=== PATIENT | male | born 1935 | race Caucasian/White ===

== ENCOUNTER → 2017-12-08 | Outpatient (CLI) | payer OTHER | LOC: BHFA 13:30 | PROVIDERS: ATTEND Internal Medicine Cardiovascular Disease | DX: I48.91 Unspecified atrial fibrillation (principal); J44.9 Chronic obstructive pulmonary disease, unspecified | CPT/HCPCS: 78452; 93017; A9500; J2785 ==

== ENCOUNTER → 2017-12-09 | Outpatient (CLI) | payer OTHER | LOC: BHFA 14:00 | PROVIDERS: ATTEND Internal Medicine Interventional Cardiology | DX: I48.91 Unspecified atrial fibrillation (principal); I25.10 Atherosclerotic heart disease of native coronary artery without angina pectoris ==

== ENCOUNTER → 2018-03-15 | Day surgery (SDC) | payer OTHER ==
[~2018-03-15] MED LIST: ACETAMINOPHEN 325 MG TAB PO ONE; CLINDAMYCIN 600 MG/DEXTROSE 50 ML IV ONE; DEXAMETHASONE 4 MG/ML VIAL IVP ONE; FAMOTIDINE 20 MG TAB PO ONE; LIDOCAINE 1% 2 ML INJ ID PRN; LR 1,000 ML IV ONE; ceFAZolin 1 GM/5 ML SYR ONE
--- NOTE | 2018-03-15 10:21 | PDHPUP ---
History & Physical Update H&P update statement: This history and physical update is based on an assessment of the patient which was completed after admission or registration (within 24 hours), but prior to the surgery/procedure. H&P update: H&P reviewed & patient examined, no change in patient's condition since H&P completed
[2018-03-15 10:25] LABS: INR 1.72 (0.83-1.16); PROTIME(PATIENT) 20.3 SEC (12.0-15.0)
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
[2018-03-15 10:51] VITALS: BP 147/66
== END | disposition home or self-care (01) ==
LOC: UNDOADMIN 08:56 → F3N 08:56 → FSGY 08:56 → EDSTATUS 10:15 → UNDODISIN 13:45
PROVIDERS: ATTEND Orthopaedic Surgery Sports Medicine
DX: M17.11 Unilateral primary osteoarthritis, right knee (principal); Q74.1 Congenital malformation of knee; I10 Essential (primary) hypertension; I48.91 Unspecified atrial fibrillation; I35.1 Nonrheumatic aortic (valve) insufficiency; G47.33 Obstructive sleep apnea (adult) (pediatric); E11.9 Type 2 diabetes mellitus without complications; N40.1 Benign prostatic hyperplasia with lower urinary tract symptoms; Z79.01 Long term (current) use of anticoagulants; Z96.641 Presence of right artificial hip joint; Z95.810 Presence of automatic (implantable) cardiac defibrillator; Z53.09 Procedure and treatment not carried out because of other contraindication
CPT/HCPCS: J1100

== ENCOUNTER 2018-03-21 08:42 | Inpatient (IN) | payer OTHER ==
[~2018-03-21 08:42] MED LIST changes: -ACETAMINOPHEN 325 MG TAB PO ONE; -CLINDAMYCIN 600 MG/DEXTROSE 50 ML IV ONE; -DEXAMETHASONE 4 MG/ML VIAL IVP ONE; -FAMOTIDINE 20 MG TAB PO ONE; -LIDOCAINE 1% 2 ML INJ ID PRN; -LR 1,000 ML IV ONE; +VANCOMYCIN 1 GM in NS 250 ML IV ONE; +VANCOMYCIN PHARMACY TO DOSE MISC ONE; -ceFAZolin 1 GM/5 ML SYR ONE
[2018-03-21] MEDS ORDERED: LR 1,000 ML IV SCH ×2 (09:04)
[2018-03-21] MEDS ORDERED: BISACODYL 10 MG SUPP PR PRN (09:04)
[2018-03-21] MEDS ORDERED: ONDANSETRON DISINTEGRATING 4 MG TAB PO PRN (09:04)
[2018-03-21] MEDS ORDERED: METOCLOPRAMIDE 10 MG/2 ML VIAL IVP PRN (09:04)
[2018-03-21] MEDS ORDERED: DIPHENOXYLATE/ATROPINE LOMOTIL 1 TAB PO PRN (09:04)
[2018-03-21] MEDS ORDERED: oxyCODONE IR 5 MG TAB PO PRN ×2 (09:04→12:05)
[2018-03-21] MEDS ORDERED: diphenhydrAMINE 25 MG CAP PO PRN (09:04)
[2018-03-21] MEDS ORDERED: LACTULOSE 20 GM/30 ML UDCUP PO PRN (09:04)
[2018-03-21] MEDS ORDERED: PROMETHAZINE HCL 25 MG SUPPR PR PRN (09:04)
[2018-03-21] MEDS ORDERED: MAGNESIUM HYDROXIDE 30 ML UDCUP PO PRN (09:04)
[2018-03-21] MEDS ORDERED: PROMETHAZINE HCL 25 MG/ML INJ IVP PRN (09:04)
[2018-03-21] MEDS ORDERED: POLYETHYLENE GLYCOL 3350 17 GM PKT PO PRN (09:04)
[2018-03-21] MEDS ORDERED: ONDANSETRON 4 MG/2 ML VIAL IVP PRN ×2 (09:04→12:05)
[2018-03-21] MEDS ORDERED: LR 1,000 ML IV ONE (09:05)
[2018-03-21 09:35] LABS: INR 1.18 (0.83-1.16); PROTIME(PATIENT) 15.2 SEC (12.0-15.0)
[2018-03-21] MEDS ORDERED: ceFAZolin 1 GM/5 ML SYR ONE (09:54)
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
[2018-03-21] MEDS ORDERED: MIDAZOLAM 2 MG/2 ML VIAL IVP ONE (10:39)
[2018-03-21] MEDS ORDERED: SUGAMMADEX SODIUM 200 MG/2 ML VIAL IVP ONE (10:57)
[2018-03-21] MEDS ORDERED: LIDOCAINE 2% 100 MG/5 ML SYR ONE (10:57)
[2018-03-21] MEDS ORDERED: DEXAMETHASONE 4 MG/ML VIAL ONE (10:57)
[2018-03-21] MEDS ORDERED: ONDANSETRON 4 MG/2 ML VIAL ONE (10:57)
[2018-03-21] MEDS ORDERED: HYDROmorphONE/DILAUDID 2 MG/ML INJ ONE (10:57)
[2018-03-21] MEDS ORDERED: PROPOFOL 200 MG/20 ML VIAL ONE (10:57)
[2018-03-21] MEDS ORDERED: ROCURONIUM 50 MG/5 ML VIAL ONE (10:57)
--- NOTE | 2018-03-21 10:59 | PDHPUP ---
History & Physical Update H&P update statement: This history and physical update is based on an assessment of the patient which was completed after admission or registration (within 24 hours), but prior to the surgery/procedure. H&P update: H&P reviewed & patient examined, no change in patient's condition since H&P completed (no change)
[2018-03-21] MEDS ORDERED: ROPIVACAINE HCL 150 MG/30 ML INJ ONE (11:01)
[2018-03-21] MEDS ORDERED: HYDROmorphONE/DILAUDID 2 MG/ML INJ IVP PRN (12:05)
[2018-03-21] MEDS ORDERED: ACETAMINOPHEN 500 MG TAB PO PRN (12:05)
[2018-03-21] MEDS ORDERED: HYDROCODONE/APAP 5/325 TAB PO PRN (12:05)
[2018-03-21] MEDS ORDERED: fentaNYL 100 MCG/2 ML INJ IVP PRN (12:05)
[2018-03-21] MEDS ORDERED: NALOXONE HCL 0.4 MG/ML INJ IVP PRN (12:05)
[2018-03-21] MEDS ORDERED: MEPERIDINE 25 MG/0.5 ML AMP IVP PRN (12:05)
[2018-03-21] MEDS ORDERED: LABETALOL HCL 5 MG/ML 20 ML MDV IVP PRN (12:05)
--- NOTE | 2018-03-21 12:05 | POSTANESTH ---
Post Anesthetic Evaluation Cardiovascular Status: Similar to Pre-Op Cond Respiratory Status: Similar to Pre-op Cond. Level of Consciousness/Mental Status: Can Participate in Eval, Moderately Sleepy Pain Control: Adequate, Prn Tx Ordered Nausea/Vomiting Control: Adequate, Prn Tx Ordered Complications Possibly Related to Anesthesia: None Noted
[2018-03-21] MEDS ORDERED: BUPIVACAINE 0.5% 30 ML SDV ONE (12:53)
[2018-03-21] MEDS ORDERED: EPINEPHrine 1 MG/ML INJ ONE (12:53)
--- NOTE | 2018-03-21 13:44 | GOP ---
[f rep st] OPERATIVE REPORT DATE OF OPERATION: 03/21/2018 SURGEON: Papi Anders MD ANESTHESIA: General. PREOPERATIVE DIAGNOSIS: Right knee osteoarthritis. POSTOPERATIVE DIAGNOSIS: Right knee osteoarthritis. PROCEDURE PERFORMED: Right total knee arthroplasty. FINDINGS: DESCRIPTION OF PROCEDURE: Patient taken to the operating room, administered general anesthesia, plac ed in supine position. The right lower extremity was prepped and draped in normal sterile fashion. Esmarch exam was performed followed by elevation of the thigh cuff to 275 mmHg pressure. A midline incision was made through dermal and subcutaneous tissues. Medial parapatellar incision wa s made. The patella was reflected laterally. The anterior fat pad and anterior portion of the media l and lateral menisci were excised. The patella was sized. An 8 mm patellar cut was made with the o scillating saw. A 35 mm patella was selected. Three drill lugs were drilled for the patella. The f emur was then exposed. The drill guide was placed in the distal femur and 2 drill lugs were drilled down to subchondral bone. The distal femoral cutting guide was placed in the distal femur and indexe d off the subchondral bone. Three pins were used to secure it. The distal femoral cut was then made with the oscillating saw. The tibia was then exposed. It was subluxed anteriorly. The articular s urface was taken down with a ring curette to subchondral bone. The tibial guide was then placed onto the tibial plateau and anterior tibial metaphysis. It was pinned into place under appropriate align ment. Three pins were utilized. The tibial cut was then made with the oscillating saw. The wafer o f bone was removed. The posterior portion of the remnants of medial lateral menisci was excised. Ou r flexion extension gaps were then assessed and felt to be a little tight medially. We felt we were going to need to do a little bit of a medial release which we did once the trials were in place. The distal femoral AP cutting block was put in position. It was rotated in the appropriate axis and pin tiana. The anterior cut was made followed by the posterior cuts x2. The anterior chamfer cut was then made with the oscillating saw. Drill lugs were drilled for the distal femur. The distal femoral po sterior chamfer cutting block was put in position on the distal femoral drill lugs. The 2 distal fem oral posterior chamfer cuts were then made with the oscillating saw. The trials were put in place. Osteophytes were removed from around the femoral trial. The tibial trial was put in position. We ag ain felt we were a little tight medially. The deep MCL and posteromedial capsule was partially relea sed. This opened this up appropriately. The trial was then fit appropriately and there was no lift- off. Thorough lavage performed of all surfaces. All the soft tissues were infiltrated with the Raman trish and epinephrine solution. The cement mixing commenced. All surfaces were thoroughly lavaged an d dried. Our tibia was cemented into place followed by the femur followed by the patella. All exces s cement was removed. The knee was put through range of motion and no thumbs patella test was perfor med. The patella tracked well. The 6 mm medial and a lateral insert were selected. These inserts w ere then impacted into position. Implants utilized was [employer] custom knee with a custom femur and a custom tibia tray. A 6 mm medial insert and a lateral insert and a 35 mm patella. The closure wa s then performed with a 0 Vicryl in the retinacular tissue followed by a 2-0 Vicryl in subcutaneous t issues followed by christie in the dermis. Sterile compression dressing applied followed by JOSH hose and Rasheed wrap. The patient tolerated the procedure well, was transferred back to recovery in stable c ondition. No operative complications. COMPLICATIONS: None. /[id number]/MODL
[2018-03-21] MEDS: FAMOTIDINE 20 MG TAB PO SCH ×2 (15:42→20:55)
[2018-03-21] MEDS: SENNOSIDES/DOCUSATE SODIUM TAB PO SCH ×2 (15:42→20:55)
[2018-03-21] MEDS ORDERED: WARFARIN SODIUM 2 MG TAB PO ONE (16:00)
[2018-03-21] MEDS ORDERED: TEARS EACHEYE PRN (16:47)
[2018-03-21] MEDS ORDERED: HYPROMELLOSE EACHEYE PRN (16:47)
[2018-03-21] MEDS ORDERED: BIOTENE DRY MOUTH ORAL RINSE 237 ML BTL MM PRN (17:07)
[2018-03-21] MEDS ORDERED: Polyvinyl Alcohol [Artificial Tears] EACHEYE PRN (17:13)
[2018-03-21] MEDS: ATORVASTATIN CALCIUM 10 MG TAB PO SCH (18:52)
[2018-03-21] MEDS: PRESERVISION AREDS2 FORMULA EYE VIT 1 EACH PO SCH (18:52)
[2018-03-21] MEDS: CETIRIZINE 10 MG TAB PO SCH (20:59)
[2018-03-21] MEDS ORDERED: CARVEDILOL 25 MG TAB PO SCH (21:00)
[2018-03-21] MEDS: LATANOPROST 0.005% 2.5 ML OPHT DROPS EACHEYE SCH (22:31)
[2018-03-22] MEDS: CYCLOBENZAPRINE 10 MG TAB PO PRN ×2 (04:42→22:06)
[2018-03-22 05:04] LABS: INR 1.24 (0.83-1.16); PROTIME(PATIENT) 15.8 SEC (12.0-15.0)
--- NOTE | 2018-03-22 08:12 | SOAPPROG ---
SOAP Progress Note Assessment/Plan: Assessment:Pod 1 doing well with pain. Instructed on getting full extension today Plan: Mobilize with PT/OT. anticipate DC to home tomorrow. Follow PT/INR 03/22/18 08:08 Subjective: Moderate pain whis AM. Objective: Vital Signs Temp Pulse Resp BP Pulse Ox 36.7 C 47 L 16 125/56 H 100 03/22/18 04:00 03/22/18 04:00 03/22/18 04:00 03/22/18 04:00 03/22/18 04:00 Laboratory Results 03/22/18 04:17 03/21/18 03/22/18 03/23/18 05:59 05:59 05:59 Intake Total 2395 Output Total 800 Balance 1595 PT 15.8 SEC (12.0-15.0) H 03/22/18 04:17 INR 1.24 (0.83-1.16) H 03/22/18 04:17 VSS/ Afeb CSMT OK Mild wound drainage, Dressing changed. ICD10 Worksheet Patient Problems: Problems Problem Status Onset Afib Acute Hip osteoarthritis Acute
[2018-03-22] MEDS: CHOLECALCIFEROL VIT D3 2,000 UNITS TAB/CAP PO SCH (09:07)
[2018-03-22] MEDS: SOLIFENACIN SUCCINATE 5 MG TAB PO SCH (09:07)
[2018-03-22] MEDS: CARVEDILOL 25 MG TAB PO SCH (09:08)
[2018-03-22] MEDS: CYANO/VITAMIN B12 1000 MCG TAB PO SCH (09:08)
[2018-03-22] MEDS: PRESERVISION AREDS2 FORMULA EYE VIT 1 EACH PO SCH ×2 (09:08→17:42)
[2018-03-22] MEDS: amLODIPine BESYLATE 5 MG TAB PO SCH (09:08)
[2018-03-22] MEDS: VITAMIN B COMPLEX 1 EA CAP/TAB PO SCH (09:09)
[2018-03-22] MEDS: ASPIRIN EC 81 MG TAB PO SCH (09:09)
[2018-03-22] MEDS: IRBESARTAN 150 MG TAB PO SCH (09:09)
[2018-03-22] MEDS: PANTOPRAZOLE SODIUM 40 MG TAB PO SCH (09:09)
[2018-03-22] MEDS: SENNOSIDES/DOCUSATE SODIUM TAB PO SCH ×2 (09:10→20:24)
[2018-03-22] MEDS: glipiZIDE XL 5 MG TAB PO SCH (09:13)
[2018-03-22] MEDS: FAMOTIDINE 20 MG TAB PO SCH (09:16)
[2018-03-22] MEDS: FUROSEMIDE 40 MG TAB PO SCH (09:19)
[2018-03-22] MEDS: Brinzolamide 1% 10 ml OPHT.BTL EACHEYE SCH ×2 (09:24→16:19)
[2018-03-22] MEDS: TIMOLOL 0.5% 15 ML OPHT.BTL EACHEYE SCH ×2 (09:28→16:21)
[2018-03-22] MEDS: TIOTROPIUM INHALER 18 MCG/DOSE 5 DOSE/MDI IH SCH (09:41)
--- NOTE | 2018-03-22 11:23 | GCON ---
[f rep st] CONSULTATION REFERRING PHYSICIAN: Papi Anders MD REASON FOR CONSULTATION: Medical management. HISTORY OF PRESENT ILLNESS: The patient is an 83-year-old gentleman who has a past medical history of nonobstructive coronary artery disease, obstructive sleep apnea, chronic kidney disease, and history of VFib arrest in December 2014, who underwent a right total knee arthroplasty yesterday. He has been having ongoing right knee osteoarthritis and had surgery. Prior to his surgery, he was seen and evaluated by Dr. Cori Bhandari for clearance of this surgery due to his cardiac history. The patient has done well with surgery. He has no significant complaints. He has no chest pain, no shortness of breath, no palpitations. Appetite is good. No complaints of significant pain. The hospitalist was asked to evaluate him in regard to his multiple medical issues PAST MEDICAL HISTORY: 1. Coronary artery disease, nonobstructive. 2. Obstructive sleep apnea, on CPAP. 3. Chronic kidney disease with a baseline creatinine of 1.7. 4. Hypertension. 5. Hyperlipidemia. 6. COPD. 7. Chronic atrial fibrillation, on chronic anticoagulation. 8. Diabetes type 2. 9. VFib arrest in December 2014, treated with a HOCA protocol and sustained rib fractures from his arrest. 10. Aspiration pneumonia. 11. Glaucoma. 12. Cataracts. PAST SURGICAL HISTORY: 1. Hip surgery in 2013. 2. Tonsillectomy. 3. Adenoid surgery. 4. Right total knee arthroplasty on this admission. SOCIAL HISTORY: He was very active. 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 He has been greater than 50 years. He has 3 children. He rarely uses alcohol. FAMILY HISTORY: His father of complications from cigarette smoking. Mother from complications of a stroke at age 97. ALLERGIES: Cephalexin causes hives. HOME MEDICATIONS: Artificial Tears p.r.n.; Timoptic 0.57 drops b.i.d.; Lovenox 80 mg q.12 days; Azopt 1 drop to each eye b.i.d.; Zyrtec 10 mg p.o. q.h.s.; warfarin 2 mg p.o. Tuesday, Tuesday, , Saturdays, 1 mg Tuesday, Tuesday , Fridays; MiraLAX 17 g daily; Metamucil b.i.d.; Roel-Synephrine spray p.r.n.; Xalatan 1 drop each eye q.h.s.; Biotene mouthwash 5 mL p.r.n.; glipizide XL 5 mg daily; Norvasc 5 mg daily; vitamin B 1 tab daily; multivitamin b.i.d.; Spiriva 1 inhalation daily; VESIcare 10 mg daily; sodium bicarb tablets 650 mg q.i.d.; Prilosec 20 mg daily; fish oil 1000 mg daily; melatonin 3 mg p.o. q.h.s. ; Avapro 300 mg daily; Lasix 40 mg daily; vitamin B12 1000 mcg daily; vitamin D3 2000 units daily; Coreg 12.5 mg daily at 10 and 25 mg p.o. q.h.s.; calcitriol 0.25 mcg Mondays and Fridays; Lipitor 10 mg daily; aspirin 81 mg daily. REVIEW OF SYSTEMS: A 10-point review of systems was performed, was negative, other than pertinent positives in the HPI and past medical history. PHYSICAL EXAM: GENERAL: The patient is an 83-year-old male who appears to be very knowledgeable in regard to his health and appears to be his stated years. VITAL SIGNS: Blood pressure is 132/54, heart rate of 46, respiratory rate of 16 , O2 sats on room air 97%. Temperature is 36.8 Celsius. EYES: Pupils are equal and reactive. EOMs are intact. He is wearing glasses. ENT: He has normal ears. Hearing is intact. NECK: Trachea is in the midline. CARDIOVASCULAR: He has an irregular rate and rhythm. He has a systolic murmur noted to the left sternal border, without rubs or gallops. No JVD is noted. He has 2+ pedal pulses. CHEST/LUNGS: Normal respiratory effort, clear, without wheezing, rales, or rhonchi. ABDOMEN: Soft, nontender. SKIN: No rashes. Warm, dry, and intact. EXTREMITIES: Right knee has an ice pack and is swollen. MUSCULOSKELETAL: Not evaluated, but moving upper and lower extremity equally. PSYCHIATRIC: He is alert and oriented. Normal mood and affect. Normal judgment, insight, and normal memory. LABORATORY DATA: Data reviewed. Hemoglobin is 9.1, hematocrit of 28.1, platelet count of 138. Coags show an INR of 1.24, pro time 15.8. Glucose is 143. ASSESSMENT/PLAN: 1. Chronic atrial fibrillation with good rate control. He is on Coreg and Coumadin. Will continue these medications. Pharmacy is dosing the patient's Coumadin. On discharge, recommending that he return to the [facility]. 2. Chronic kidney disease. Will check a chemistry panel this morning. He is on sodium bicarb b.i.d. for this. He is followed closely by Dr. Arita. Will avoid any nephrotoxic medications. 3. Bradycardia. Will continue monitoring. Spoke with the patient's returned case inspector and will give him half his dose of Coreg tonight. Place on telemetry. 4. Diabetes type 2. He is somewhat hyperglycemic. Have resumed his glipizide XL. If he continues to be hyperglycemic, will initiate the sliding scale. 5. Hypertension. Blood pressure is stable. Resumed his home medications. 6. Coronary artery disease that is nonobstructive. He is on a baby aspirin, statin and beta brodie. 7. Hyperlipidemia, on statin therapy. 8. Postop day #1 for a right total knee arthroplasty. He is doing quite well with this. 9. Hematuria. Will follow. Patient had a anthony catheter removed and is on anticoagulation. Thank you for allowing the hospitalists to be involved in the patient's care. We will follow along with you while he is in the hospital. /[id number]/MODL MTDD
[2018-03-22] MEDS ORDERED: NS 250 ML IV ONE (13:32)
[2018-03-22] MEDS: SODIUM BICARBONATE 650 MG TAB PO SCH ×2 (14:41→20:24)
--- NOTE | 2018-03-22 15:07 | PDMN ---
Medical Necessity Medical necessity: Change to IP, as of 03/22/18, per PA; los >2 mn for ongoing management of bradycardia, chronic kidney disease & hyperglycemia s/p R TKA POD #1; admit for further monitoring/telemetry, follow-up labs, Cardiology/ Hospitalist consults, med management, IVFs & therapies; comorbid advanced age, AFIB on AC, CKD, diabetes, HTN, CAD, NAIF on CPAP, COPD, VFIB arrest & aspiration pneumonia; per progress note & order 12/23/17
[2018-03-22] MEDS ORDERED: WARFARIN SODIUM 2 MG TAB PO ONE (16:00)
--- NOTE | 2018-03-22 16:40 | ASMTCMCOM ---
CM Note CM Note Notes: Pt s/p R total knee. Pt resides with spouse and has son local. OT rec home/HHC/24 hr supervision/SNF, PT rec [facility] [place]. Pt agreeable to [facility] [place], requests [facility] and referral sent in [employer]. Cm to follow. Date Signed: 03/22/2018 04:39 PM Electronically Signed By:JOHN Piper
[2018-03-22] MEDS: ATORVASTATIN CALCIUM 10 MG TAB PO SCH (17:42)
[2018-03-22] MEDS: CETIRIZINE 10 MG TAB PO SCH ×2 (20:24→22:03)
[2018-03-22] MEDS ORDERED: MELATONIN 3 MG TAB PO SCH (21:00)
[2018-03-22] MEDS ORDERED: CARVEDILOL 6.25 MG TAB PO ONE (21:00)
[2018-03-22] MEDS: LATANOPROST 0.005% 2.5 ML OPHT DROPS EACHEYE SCH (22:03)
[2018-03-23 05:10] LABS: INR 1.44 (0.83-1.16); PROTIME(PATIENT) 17.7 SEC (12.0-15.0)
[2018-03-23] MEDS ORDERED: FAMOTIDINE 20 MG TAB PO SCH (09:00)
[2018-03-23] MEDS: CHOLECALCIFEROL VIT D3 2,000 UNITS TAB/CAP PO SCH (09:36)
[2018-03-23] MEDS: FUROSEMIDE 40 MG TAB PO SCH (09:37)
[2018-03-23] MEDS: PRESERVISION AREDS2 FORMULA EYE VIT 1 EACH PO SCH (09:37)
[2018-03-23] MEDS: SOLIFENACIN SUCCINATE 5 MG TAB PO SCH (09:37)
[2018-03-23] MEDS: TIOTROPIUM INHALER 18 MCG/DOSE 5 DOSE/MDI IH SCH (09:37)
[2018-03-23] MEDS: glipiZIDE XL 5 MG TAB PO SCH (09:39)
[2018-03-23] MEDS: ASPIRIN EC 81 MG TAB PO SCH (09:39)
[2018-03-23] MEDS: PANTOPRAZOLE SODIUM 40 MG TAB PO SCH (09:40)
[2018-03-23] MEDS: VITAMIN B COMPLEX 1 EA CAP/TAB PO SCH (09:43)
[2018-03-23] MEDS: CARVEDILOL 25 MG TAB PO SCH (09:43)
[2018-03-23] MEDS: CYANO/VITAMIN B12 1000 MCG TAB PO SCH (09:44)
[2018-03-23] MEDS: amLODIPine BESYLATE 5 MG TAB PO SCH (09:45)
[2018-03-23] MEDS: SENNOSIDES/DOCUSATE SODIUM TAB PO SCH (09:45)
[2018-03-23] MEDS: SODIUM BICARBONATE 650 MG TAB PO SCH (09:46)
[2018-03-23] MEDS: IRBESARTAN 150 MG TAB PO SCH (09:46)
[2018-03-23] MEDS: TIMOLOL 0.5% 15 ML OPHT.BTL EACHEYE SCH (09:53)
[2018-03-23] MEDS: Brinzolamide 1% 10 ml OPHT.BTL EACHEYE SCH (09:54)
--- NOTE | 2018-03-23 12:01 | SOAPPROG ---
SOAP Progress Note Assessment/Plan: Assessment: POD #2 Right TKA: overall doing well, pain well controlled. Has been up with PT/ OT. Plan: Ok to D/C once cleared by hospitalists, CM, PT/OT. Likely will have HomeHealth. WBAT. Maintain dry dressing. DVT: JOSH hose, SCDs, IS, warfarin to dose. Monitor PT/INR. Advised patient to watch for fever, chills, NVD, abnormal numbness/tingling, change in heat/color around wound site or of extremity, abnormal bleeding/oozing /discharge and to seek immediate medical attn if seen. Patient d/w Dr. Anders. 03/23/18 11:57 Subjective: Alone in room, able to respond appropriately to question/command. Has passed BM. Pain well controlled. Denies fever, chills, NVD, abnormal numbness/tingling , change in heat/color around wound site or of extremity, abnormal bleeding/ oozing/discharge. Has been ambulating with PT/OT. Objective: Vital Signs Temp Pulse Resp BP Pulse Ox 36.8 C 57 L 16 148/57 H 100 03/23/18 08:00 03/23/18 08:00 03/23/18 08:00 03/23/18 08:00 03/23/18 08:00 Laboratory Results 03/23/18 04:35 03/22/18 11:16 03/22/18 03/23/18 03/24/18 05:59 05:59 05:59 Intake Total 2395 200 Output Total 800 1400 275 Balance 1595 -1400 -75 PT 17.7 SEC (12.0-15.0) H 03/23/18 04:35 INR 1.44 (0.83-1.16) H 03/23/18 04:35 AO, NAD, Non labored breathing. RRR. Afebrile. No diaphoresis. MS: SCDs and JOSH present b/l. Right knee bandaged with no abnormal bleeding/ oozing/discharge, change in heat/color around wound site or of extremity. Able to bear weight to the right knee. AROM: 25-90 before severe pain elicited on right side. Calves soft/supple and NTTP b/l with negative b/l Homans and brisk cap refill b/l. Gross sensation intact b/l. - Pending Discharge Pending Discharge Within 48 Hours: Yes Pending Discharge Date: 03/25/18 (Pending CM, PT/OT, hospitalists. ) Pending Discharge Time: 11:00 ICD10 Worksheet Patient Problems: Problems Problem Status Onset Afib Acute Hip osteoarthritis Acute
--- NOTE | 2018-03-23 14:36 | HOSPPROG ---
Hospitalist Progress Note Assessment/Plan: Impression: 1. non-obstructive CAD 2. atrial fib with mild bradycardia 3. CKD at baseline 4. DM2 5. hypertension 6. hyperlipidemia Recs: 1. change to 1/2 current coreg dose at 12.5mg daily 2. cont warfarin 2mg HS - will need INR checks at home and then will follow in coumadin clinic 3. cont asa/statin/furosemide/glipizide/vesicare/amlodipine/avapro/calcitriol/ NaBicarb at current doses Subjective: had a nightmare last night and awoke somewhat confused Objective: Vital Signs Temp Pulse Resp BP Pulse Ox 36.8 C 57 L 16 148/57 H 100 03/23/18 08:00 03/23/18 08:00 03/23/18 08:00 03/23/18 08:00 03/23/18 08:00 Laboratory Results 03/23/18 04:35 03/22/18 11:16 03/22/18 03/23/18 03/24/18 05:59 05:59 05:59 Intake Total 2395 200 Output Total 800 1400 275 Balance 1595 -1400 -75 PT 17.7 SEC (12.0-15.0) H 03/23/18 04:35 INR 1.44 (0.83-1.16) H 03/23/18 04:35 chart reviewed - Time Spent With Patient Time Spent with Patient: greater than 35 minutes Time Spent with Patient: Greater than 35 minutes spent on this patients care, greater than 50% of time spent counseling, educating, and coordinating care regarding the above mentioned plan. ICD10 Worksheet Patient Problems: Problems Problem Status Onset Afib Acute Hip osteoarthritis Acute
--- NOTE | 2018-03-23 14:46 | PDIAF ---
- Diagnosis Diagnosis: TKA Code Status: Full Code - Medication Management Discharge Medications: Medications to Continue on Transfer Cholecalciferol Vit D3 [Vitamin D3 (*)] 2,000 units PO DAILY 02/20/14 [Last Taken 03/08/18] Melatonin [Melatonin 3 MG (*)] 3 mg PO HS 02/20/14 [Last Taken 03/20/18] Casco-3 Fatty Acids [Fish Oil 1000 mg (*)] 1,000 mg PO DAILY@12 02/20/14 [Last Taken 03/08/18] Omeprazole [Prilosec 20 mg] 20 mg PO DAILY 02/20/14 [Last Taken 03/21/18 05:30] Vit A/Vit C/Vit E/Zinc/Copper [Preservision Areds Softgel] 1 each PO BIDMEAL [Last Taken 03/08/18] Vitamin B Comp W-C [B Complex-Vitamin C] 1 each PO DAILY 02/20/14 [Last Taken ] Warfarin Sodium [Coumadin 2MG (*)] 2 mg PO SUTUTHSA@16 02/20/14 [Last Taken 08/17] Cyanocobalamin [Vitamin B12 (*)] 1,000 mcg PO DAILY 01/15/15 [Last Taken ] Latanoprost 0.005% [Xalatan 0.005% (*)] 1 drops EACHEYE HS 01/15/15 [Last Taken 03/21/18] Aspirin EC [Aspirin EC 81 mg (*)] 81 mg PO DAILY 02/06/18 [Last Taken 03/08/18] Brinzolamide 1% [Azopt 1%] 1 drops EACHEYE BID@10,16 02/06/18 [Last Taken ] Calcitriol [Calcitriol (*)] 0.25 mcg PO MOFR 02/06/18 [Last Taken 03/21/18 05:30 ] Cetirizine [ZyrTEC 10 mg (*)] 10 mg PO HS 02/06/18 [Last Taken 03/20/18] Gluc Oxid/l-Peroxid/Muramidase [Biotene Mouthwash (*)] 5 ml MM DAILY PRN [Last Taken 03/21/18] Herbals/Supplements -Info Only 1 ea PO DAILY 02/06/18 [Last Taken 03/07/18] Irbesartan [Avapro] 300 mg PO DAILY 02/06/18 [Last Taken 03/20/18] glipiZIDE XL [Glucotrol Xl 2.5 mg (*)] 5 mg PO DAILY 02/06/18 [Last Taken ] Carvedilol [Coreg (*)] 12.5 mg PO DAILY10 tab 03/23/18 [Last Taken Unknown] Cyclobenzaprine [Flexeril 10 MG (*)] 10 mg PO TID PRN #30 tab 03/23/18 [Last Taken Unknown] Sodium Bicarbonate [Na Bicarb] 1,300 mg PO BID tab 03/23/18 [Last Taken Unknown ] amLODIPine BESYLATE [Norvasc 5 mg (*)] 5 mg PO DAILY tab 03/23/18 [Last Taken Unknown] Discharge Medications: Refer to the Discharge Home Medication list for PRN reason. - Orders Services needed: Home Care, Registered Nurse, Certified [facility], Physical Therapy, Occupational Therapy Home Care Face to Face: I certify that this patient was under my care and that I had the required smee-ie-supa encounter meeting the encounter requirements on the discharge day. My findings support the fact that the patient is homebound as defined in Home Care Face to Face Continued: CMS Chapter 7 Medicare Benefits Manual 30.1.1 , The condition of the patient is such that there exists a normal inability to leave home and consequently, leaving home would require a considerable and taxing effort. Isolation Type: None Diet Recommendation: no restrictions on diet Diet Texture: Regular Texture Diet Additional Instructions: WBAT. PT/OT. DVT prophylaxis: maintain JOSH hose, warfarin and continue PT/INR testing outpatient to adjust dose. Maintain dry dressing. Notify our office for abnormal bleeding/oozing/discharge, change in heat/color of extremities or around wound site. Begin PT for ROM and ambulation. - Labs/Radiology PT/INR Date: 03/26/18 (three times weekly until stable) - Follow Up Care Current Providers and Referrals: Parmjit Lay MD [Primary Care Provider] - Papi nAders MD [Medical Doctor] -
--- NOTE | 2018-03-23 15:26 | ASMTCMCOM ---
CM Note CM Note Notes: Pt medically stable for d/c with [facility]/PT/OT and family support. Orders sent in [employer]. Date Signed: 03/23/2018 03:25 PM Electronically Signed By:JOHN Piper
[2018-03-23] MEDS ORDERED: WARFARIN SODIUM 2 MG TAB PO ONE (16:00)
[2018-03-23 16:35] VITALS: BP 143/56
[2018-03-24] MEDS ORDERED: CALCITRIOL 0.25 MCG CAP PO SCH (09:00)
--- NOTE | 2018-03-24 09:24 | ASDISCHSUM ---
Discharge Information Plan Status:Home with Home Health Medically Cleared to Leave: Discharge Date:03/23/2018 04:55 PM CM D/C Disposition:Home Health Service ADT D/C Disposition:Home, Routine, Self-Care Projected Discharge Date:03/23/2018 11:00 AM Transportation at D/C: Discharge Delay Reason: Follow-Up Date:03/23/2018 11:00 AM Discharge Slot: Final Diagnosis: Placement Information Referral Type:*Home Health Care Services Referral ID:[id number] Provider Name:[facility] [place] Address 1:[address] [place] [address] Address 2: City:[place] Selection Factors: State:[place] Patient Contact Information Contact Name:HOANG Relationship: Address:[address] Work Phone: City:[place] Alternate Phone: [facility]/Zip Code:[place] [address] Email: Financial Information Financial Class:Medicare Primary Plan Desc:MEDICARE INPATIENT Primary Plan Number:[id number] Secondary Plan Desc:[facility] Secondary Plan Number:[id number] Assessment Information [facility] CM Progress Note CM Note CM Note Notes: Pt s/p R total knee. Pt resides with spouse and has son local. OT rec home/HHC/24 hr supervision/SNF, PT rec [facility]. Pt agreeable to [facility], requests [facility] and referral sent in [facility]. Cm to follow. Date Signed: 03/22/2018 04:39 PM Electronically Signed By:JOHN Piper BC CM Progress Note CM Note CM Note Notes: Pt medically stable for d/c with [facility]/PT/OT and family support. Orders sent in [employer]. Date Signed: 03/23/2018 03:25 PM Electronically Signed By:JOHN Piper Intervention Information Intervention Type:*Incorrect Registration Date of Service:03/21/2018 02:31 PM Patient Type:Inpatient Staff Member:PRAKASH Joshi, Ania Hours: Discipline: Severity: Comment: Intervention Type:*[facility]KE-Signed Date of Service:03/22/2018 11:44 AM Patient Type:Observation Staff Member:Mandi Blunt Hours: Discipline: Severity: Comment:
== END 2018-03-23 16:55 | disposition home health service (06) | DRG 983 ==
LOC: F3E 08:42 → INTOOBSV 08:42 → UNDOADMOB 08:42 → OBSVTOIN 09:04 → INTOOBSV 09:04 → EDSTATUS 10:30 → F3N 15:05 → F3E 15:05 → OBSVTOIN 03-22 13:59 → F3N 03-22 13:59 → UNDODISIN 03-23 16:55
PROVIDERS: ADMIT Orthopaedic Surgery Sports Medicine; ATTEND Orthopaedic Surgery Sports Medicine
PROC: 0SRC0J9 Replacement of Right Knee Joint with Synthetic Substitute, Cemented, Open Approach (ICD-10-PCS; principal; 2018-03-21 10:30)
DX: R00.1 Bradycardia, unspecified (principal); I48.2 Chronic atrial fibrillation; E11.65 Type 2 diabetes mellitus with hyperglycemia; N18.9 Chronic kidney disease, unspecified; I12.9 Hypertensive chronic kidney disease with stage 1 through stage 4 chronic kidney disease, or unspecified chronic kidney disease; M17.11 Unilateral primary osteoarthritis, right knee; Z79.01 Long term (current) use of anticoagulants; I35.1 Nonrheumatic aortic (valve) insufficiency; J44.9 Chronic obstructive pulmonary disease, unspecified; G47.33 Obstructive sleep apnea (adult) (pediatric); Z79.84 Long term (current) use of oral hypoglycemic drugs; E78.5 Hyperlipidemia, unspecified; N40.1 Benign prostatic hyperplasia with lower urinary tract symptoms; Z96.641 Presence of right artificial hip joint; Z95.810 Presence of automatic (implantable) cardiac defibrillator; Z86.74 Personal history of sudden cardiac arrest; H40.9 Unspecified glaucoma; H26.9 Unspecified cataract
CPT/HCPCS: 97110-GP; 97116-GP; 97161-GP; 97166-GO; 97530-GP; 97535-GO; C1713; G8978-GP-CK; G8979-GP-CI; G8980-GP-CI; G8987-GO-CK; G8988-GO-CI; J0171; J1100; J1170; J2001; J2250; J2405; J2704; J2795; J3370

== ENCOUNTER 2019-01-09 14:47 | Inpatient (IN) | payer OTHER ==
[2019-01-09] MEDS ORDERED: IPRATROPIUM/ALBUTEROL 3 ML DEYVIAL IH ONE (15:37)
--- NOTE | 2019-01-09 15:47 | EDPHY ---
H & P Stated Complaint: cough, congestion Time Seen by Provider: 01/09/19 14:50 HPI/ROS: CHIEF COMPLAINT: Cough, trouble breathing HISTORY OF PRESENT ILLNESS: This is an 83-year-old male with history of COPD who presents with 2-3 days of cough. He has now developed shortness of breath. He can hear "crackles" when he is breathing. His tells me that he is falling asleep frequently. This morning he was having difficulty with balance. She is also concerned because he seems a bit confused to her--repeating himself- -which is not the norm. He does not typically use oxygen, but wear CPAP at night. He is on Coumadin for afib. REVIEW OF SYSTEMS: A ten system review of systems was performed and is negative with the exception of the items mentioned in the HPI. Past medical history: 1. COPD 2. Diabetes mellitus 3. AICD placement status/underlying rhythm AFib/sudden cardiac 2014 4. Hyperparathyroidism 5. Hyperlipidemia 6. CKD 7. NAIF 8. Glaucoma Past surgical history: 1. Right knee replacement next 2. Left knee replacement in December 2018 3. AICD 4. Cataracts Social history: He lives with his . His and son accompany him today. 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 He does not use tobacco products and he does not currently drink alcohol. General Appearance: Alert. Vital signs reviewed. 91% on room air. BP 164/75. Eyes: Pupils equal and round, no conjunctival injection, no discharge. Anicteric. ENT, Mouth: Mucous membranes are moist, no oropharyngeal erythema or edema. Neck: No lymphadenopathy, supple. JVD present Respiratory: Rales and rhonchi throughout both lung acuña. Tachypneic. Cardiovascular: Irregularly irregular; no murmur, rub, or gallop. Lungs: Distant breath sounds, rales bilaterally, more prominent on right. Gastrointestinal: Abdomen is soft and nontender, no masses or organomegaly, bowel sounds normal. Skin: Warm and dry, no rashes on exposed skin, normal color. Back: Nontender to palpation over the thoracolumbar spine. No CVAT. Extremities: Bilateral pitting edema to the knees. Left knee with healing surgical incision. Neurological: Alert and oriented. Moving all four extremities easily and equally. Psychiatric: Normal affect. - Personal History Current Tetanus/Diphtheria Vaccine: Yes Current Tetanus Diphtheria and Acellular Pertussis (TDAP): Yes Tetanus Vaccine Date: 4 years ago - Medical/Surgical History Hx Asthma: No Hx Chronic Respiratory Disease: Yes Hx Diabetes: Yes Hx Cardiac Disease: Yes Hx Renal Disease: Yes Hx Cirrhosis: No Hx Alcoholism: No Hx HIV/AIDS: No Hx Splenectomy or Spleen Trauma: No Other PMH: atrial fibrillation, CAD, osteoarthritis, COPD, NAIF W/ CPAP, BPH, DM , HTN, Chronic kidney disease, macular degeneration, hyperlipidemia, tonsillectomy, adenoidectomy, cryptogenic liver disease with jaundice; Right hip replacement 2013; L knee replacement, PPM - Social History Smoking Status: Never smoked Constitutional: Initial Vital Signs Temperature (C) 37.4 C 01/09/19 14:47 Heart Rate 66 01/09/19 14:47 Respiratory Rate 16 01/09/19 14:47 Blood Pressure 164/75 H 01/09/19 14:47 O2 Sat (%) 91 L 01/09/19 14:47 O2 Delivery Mode Nasal Cannula O2 (L/minute) 3 Allergies/Adverse Reactions: cephalexin [Cephalexin] Allergy (Severe, Verified 01/09/19 15:01) Hives Home Medications: Medication Instructions Recorded Cholecalciferol Vit D3 [Vitamin D3 2,000 units PO DAILY 02/20/14 (*)] Omeprazole [Prilosec 20 mg] 20 mg PO DAILY 02/20/14 Warfarin Sodium [Coumadin 2MG (*)] 2 mg PO SUMOWETHFRSA 02/20/14 Latanoprost 0.005% [Xalatan 0.005% 1 drops EACHEYE HS 01/15/15 (*)] Brinzolamide 1% [Azopt 1%] 1 drops EACHEYE BID 02/06/18 Calcitriol [Calcitriol (*)] 0.25 mcg PO MOFR 02/06/18 Cetirizine [ZyrTEC 10 mg (*)] 10 mg PO HS PRN 02/06/18 Irbesartan [Avapro] 300 mg PO DAILY 02/06/18 glipiZIDE XL [Glucotrol Xl 2.5 mg 5 mg PO DAILY 02/06/18 (*)] Furosemide [Lasix 40 MG (*)] 40 mg PO DAILY tab 03/23/18 amLODIPine BESYLATE [Norvasc 5 mg 5 mg PO DAILY tab 03/23/18 (*)] Aspirin EC [Aspirin EC 81 mg (*)] 81 mg PO DAILY 01/09/19 Atorvastatin Calcium [Lipitor 10 10 mg PO HS 01/09/19 mg (*)] C/E/Zn/Cu/OM3/DHA/EPA/LUT/ZEAX 2 each PO BID 01/09/19 [Preservision Areds 2 Softgel] Calcium 600 + Vit D 400 Softgl 1 cap PO DAILY 01/09/19 Carvedilol [Coreg] 12.5 mg PO BID 01/09/19 Herbals/Supplements -Info Only 1 ea PO DAILY 01/09/19 Loperamide 25 mg PO DAILY PRN 01/09/19 Melatonin [Melatonin 3 MG (*)] 3 mg PO HS 01/09/19 [place]ress-3S/Dha/Epa/Fish Oil [Fish 1 each PO DAILY 01/09/19 Oil 1,200 mg Softgel] Phenylephrine 1% Nasal 1 spray EACHNARE BID PRN 01/09/19 [Roel-Synephrine] Polyethylene Glycol 1450 17 gm PO DAILY PRN 01/09/19 Pseudoephedrine HCl [Sudogest] 60 mg PO BID PRN 01/09/19 Psyllium Husk/Aspartame [Metamucil 3.4 gm PO DAILY PRN 01/09/19 Fiber Singles Packet] Sodium Bicarbonate [Na Bicarb 650 650 mg PO QID 01/09/19 MG (RX)] Solifenacin Succinate [Vesicare] 10 mg PO DAILY 01/09/19 Timolol 0.5% [TIMOPTIC 0.5% (*)] 1 drops EACHEYE BID 01/09/19 Tiotropium Inhaler [Spiriva 18 mcg IH DAILY 01/09/19 Handihaler] Warfarin Sodium [Coumadin 1MG (*)] 1 mg PO TU 01/09/19 traMADol [Ultram 50 mg (*)] 50 mg PO Q6H PRN 01/09/19 Medical Decision Making ED Course/Re-evaluation: 89 year old male with two apparent issues: 1. Chest xray shows right basilar pneumonia. 2. Physical exam, history, labs (BNP of 14,800 is much higher than his previous ) and CXR support dx of CHF. He is being admitted to the hospital by Dr. Inderjit Black. Initial antibiotics for pneumonia were ordered after discussion with Dr. Black- -doxycycline and Unasyn. Lactate normal at 1.3. He developed temp of 39 in ED, but did not meet sepsis criteria (HR under 90, RR under 20, WBC under 12,000). In ED he received 40 mg IV lasix for diuresis, treatment of CHF. Etiology of CHF not known. He is in afib on EKG and noted to have LBBB, which he denies having had in past. Troponin elevated at 0.091. He denies chest pain or other cardiac symptoms. Dr. Black wonders whether or not he might have had an intra or post operative NM following his knee surgery (about five weeks ago). Will trend troponins and consult cardiology during this hospitalization. He is adequately anticoagulated, I doubt PE. Differential Diagnosis: Shortness of breath including but not limited to pulmonary infectious process, COPD, asthma, pulmonary embolus and congestive heart failure. - Data Points Laboratory Results: Laboratory Results 01/09/19 14:50 01/09/19 14:50 Medications Given: Acetaminophen (Tylenol) 650 mg PO Q4HRS PRN PRN Reason: Pain, Mild/Fever, Can Take PO Stop: 07/08/19 17:26 Last Admin: 01/11/19 00:35 Dose: 650 mg Albuterol (Proventil Neb) 3 ml IH Q2HRS PRN PRN Reason: Short of Breath/Dyspnea Stop: 07/09/19 00:01 Last Admin: 01/10/19 00:18 Dose: 3 ml Bisacodyl (Dulcolax Rectal) 10 mg LA DAILY PRN; Protocol PRN Reason: Constipation Stop: 07/09/19 20:59 Last Admin: 01/10/19 21:22 Dose: 10 mg Brinzolamide (Azopt 1%) 1 drops EACHEYE BID PENDING SALE TO [facility] Stop: 07/08/19 22:29 Last Admin: 01/13/19 08:28 Dose: 1 drop Furosemide (Lasix Injection) 40 mg IVP BID@0900,1500 PENDING SALE TO [facility] Stop: 07/09/19 08:59 Last Admin: 01/13/19 08:27 Dose: 40 mg Insulin Human Lispro (Humalog Lispro) 0 unit SC TIDMEAL PENDING SALE TO [facility] PRN Reason: Protocol Stop: 07/11/19 11:59 Last Admin: 01/13/19 08:27 Dose: 2 units Latanoprost (Xalatan 0.005%) 1 drops EACHEYE HS PENDING SALE TO [facility] Stop: 07/08/19 22:29 Last Admin: 01/12/19 22:08 Dose: 1 drop Oseltamivir Phosphate (Tamiflu Oral Suspension) 30 mg PO BIDMEAL PENDING SALE TO [facility] Stop: 01/14/19 22:22 Last Admin: 01/13/19 08:27 Dose: 30 mg Polyethylene Glycol (Miralax) 17 gm PO DAILY PRN; Protocol PRN Reason: Constipation Stop: 07/09/19 20:59 Last Admin: 01/11/19 21:38 Dose: 17 gm Senna/Docusate Sodium (Senokot-S) 1 - 2 tab PO BID PENDING SALE TO [facility] PRN Reason: Protocol Stop: 07/09/19 20:59 Last Admin: 01/13/19 08:28 Dose: 2 tab Timolol Maleate (Timoptic 0.5%) 1 drops EACHEYE BID PENDING SALE TO [facility] Stop: 07/08/19 22:29 Last Admin: 01/13/19 08:29 Dose: 1 drop Discontinued Medications Acetaminophen (Tylenol) 1,000 mg PO EDNOW ONE Stop: 01/09/19 16:10 Last Admin: 01/09/19 16:14 Dose: 1,000 mg Albuterol/Ipratropium (Duoneb) 3 ml IH EDNOW ONE Stop: 01/09/19 15:38 Last Admin: 01/09/19 15:44 Dose: 3 ml Furosemide (Lasix Injection) 40 mg IVP EDNOW ONE Stop: 01/09/19 16:59 Last Admin: 01/09/19 17:00 Dose: 40 mg Furosemide (Lasix Injection) 40 mg IVP ONCE ONE Stop: 01/10/19 00:04 Last Admin: 01/10/19 00:18 Dose: 40 mg Ampicillin Sodium/Sulbactam (Sodium 1.5 gm/ Sodium Chloride) 50 mls @ 200 mls/ hr IV EDNOW ONE PRN Reason: Protocol Stop: 01/09/19 17:38 Last Admin: 01/09/19 17:46 Dose: 50 mls Doxycycline Hyclate 100 mg/ (Sodium Chloride) 260 mls @ 260 mls/hr IV Q12HRS RICHARD PRN Reason: Protocol Stop: 02/08/19 20:59 Last Admin: 01/10/19 20:51 Dose: 260 mls Ampicillin Sodium/Sulbactam (Sodium 3 gm/ Sodium Chloride) 100 mls @ 200 mls/ hr IV Q12H RICAHRD Stop: 02/09/19 05:59 Last Admin: 01/11/19 05:24 Dose: 100 mls Calcium Gluconate (Calcium Gluconate 1 Gm (Premix)) 50 mls @ 100 mls/hr IV ONCE ONE Stop: 01/12/19 08:29 Last Admin: 01/12/19 09:23 Dose: 50 mls Potassium Chloride (Klor-Con) 40 meq PO ONCE ONE Stop: 01/11/19 06:38 Last Admin: 01/11/19 09:45 Dose: 40 meq Potassium Chloride (Klor-Con) 20 meq PO ONCE ONE PRN Reason: Protocol Stop: 01/11/19 21:04 Last Admin: 01/11/19 21:38 Dose: 20 meq Potassium Chloride (Klor-Con) 10 meq PO ONCE ONE PRN Reason: Protocol Stop: 01/12/19 08:04 Last Admin: 01/12/19 09:07 Dose: 10 meq Potassium Chloride (Klor-Con) 10 meq PO ONCE ONE PRN Reason: Protocol Stop: 01/12/19 20:19 Last Admin: 01/12/19 22:05 Dose: 10 meq Potassium Chloride (Klor-Con) 10 - 40 meq PO ONCE ONE PRN Reason: Protocol Stop: 01/13/19 08:00 Last Admin: 01/13/19 08:27 Dose: 10 meq Point of Care Test Results: Chemistry 01/09/19 16:31 POC Troponin I 0.08 ng/mL ng/mL (0.00-0.08) Departure - Departure Disposition: [facility] Inpatient Acute Clinical Impression: Influenza Pneumonia Qualifiers: Pneumonia type: due to unspecified organism Laterality: right Lung location: lower lobe of lung Qualified Code(s): J18.1 - Lobar pneumonia, unspecified organism CHF (congestive heart failure) Qualifiers: Heart failure type: unspecified Heart failure chronicity: acute Qualified Code( s): I50.9 - Heart failure, unspecified Condition: Fair
[2019-01-09 15:50] LABS: PLATELET COUNT 226 10^3/uL (150-400)
[2019-01-09] MEDS ORDERED: ACETAMINOPHEN 500 MG TAB ONE (16:06)
[2019-01-09] MEDS ORDERED: ACETAMINOPHEN 500 MG TAB PO ONE (16:09)
[2019-01-09 16:13] LABS: INR 2.71 (0.83-1.16); PROTIME(PATIENT) 27.4 SEC (12.0-15.0)
[2019-01-09] MEDS ORDERED: FUROSEMIDE 40 MG/4 ML VIAL ONE (16:58)
[2019-01-09] MEDS ORDERED: FUROSEMIDE 40 MG/4 ML VIAL IVP ONE (16:58)
[2019-01-09] MEDS ORDERED: AMPICILLIN/SULBACTAM 1.5 GM in NS 50 ML IV ONE (17:24)
[2019-01-09] MEDS ORDERED: ONDANSETRON DISINTEGRATING 4 MG TAB PO PRN (17:27)
[2019-01-09] MEDS ORDERED: ACETAMINOPHEN 325 MG TAB PO PRN (17:27)
[2019-01-09] MEDS ORDERED: ONDANSETRON 4 MG/2 ML VIAL IVP PRN (17:27)
--- NOTE | 2019-01-09 18:33 | GHP ---
[f rep st] HISTORY AND PHYSICAL DATE OF ADMISSION: 01/09/2019 The patient is a pleasant 83-year-old gentleman with history of sudden cardiac in 2014, with pr eserved EF. Catheterization at that time showed nonobstructive coronary disease. AICD was placed. This was 4 years ago. He had his knee replaced about 5 weeks ago and has done reasonably well since then, but he presents today at the behest of his secondary to confusion and difficulty with ADLs . 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 It sounds like he was trying to stand up and he fell backwards and he w as also perseverative. When I speak with the patient, he seems a bit slow to respond, acknowledges vito waggoner that is dry. He also notes bilateral lower extremity edema, which is a new complaint for him. He has been taking warfarin since his total knee arthroplasty. He denies a prior history of left bundle branch block pattern. He denies a recent history of chest p ain type syndrome. He notes that he has swelling in his legs and a dry cough. REVIEW OF SYSTEMS: Complete 10-point review of systems conducted and negative except as noted in the HPI. PAST MEDICAL HISTORY: Nonobstructive coronary artery disease, NAIF, CKD with a baseline of about 1.7, hypertension, hyperlipidemia, COPD, chronic atrial fibrillation on warfarin, type 2 diabetes, VFib a rrest in December 2014, treated with HACA protocol. Status post AICD, history of aspiration pneumonia, glaucoma, cataracts, hip surgery, recent knee arthroplasty, history of right knee arthroplasty remote ly. SOCIAL HISTORY: He has been active most of his life. 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 Rare alcohol. FAMILY HISTORY: Parents are . ALLERGIES: Keflex, which he gets a rash. HOME MEDICATIONS: Albuterol, amlodipine, atorvastatin, brinzolamide eye drops, calcitriol, calcium w ith vitamin D, carvedilol, cetirizine, vitamin D3, Lasix 40 daily, glipizide, irbesartan, latanoprost , loperamide, lutein, Metamucil, omeprazole, oxycodone, phenylephrine, MiraLAX, sodium bicarb, Sudafe d, timolol eye drops, tiotropium, tramadol, VESIcare, warfarin. PHYSICAL EXAMINATION: VITAL SIGNS: Temp 37.4. He spiked to 39 in the emergency department. Blood pressure 164/75, pulse 66, breathing at 16 times a minute, 91% on 3 L. GENERAL: No acute distress. HEENT: Sclerae anicteric. Oropharynx clear. Mucous membranes are moist. NECK: Supple. There is JVD to the angle of the jaw at 40 degrees. LUNGS: Crackles bilaterally, right greater than left. HEART: S1, S2, without murmurs. It is irregularly irregular. ABDOMEN: Soft, nontender, nondistend ed. LOWER EXTREMITIES: Show chronic venous stasis changes with 2+ lower extremity edema. It is act ually symmetric. His left total knee arthroplasty scar is healing well without fluctuance or erythem a. It is warm. LABORATORY DATA: Today, his white count is 11.3, hematocrit 33, platelets are 226,000. INR is 2.7. Venous lactate 1.3. Sodium 135, potassium 4.3, chloride 104, bicarb 21, BUN 46, creatinine 2.0. Th is is greater than his baseline. Total bilirubin is 1.6, slightly elevated. BNP is 14,800 and his b aseline is less than a couple of thousand. Urinalysis shows a few red cells, otherwise unremarkable. Chest x-ray, interpreted by me, shows right lower lobe airspace disease consistent with pneumonia, ca rdiomegaly, and likely bilateral heart failure or pulmonary edema. EKG interpreted by me shows atrial fibrillation with a left bundle branch block pattern. Based on my perusal of the EKGs, this is a new left bundle branch block pattern. I have discussed the case with Dr. Tammy Gonzales and Dr. Cori Bhandari. ASSESSMENT/PLAN: A pleasant 83-year-old gentleman with a history of sudden cardiac , recent kne e arthroscopy, who presents with right lower lobe pneumonia with apparently superimposed congestive h eart failure. 1. Right lower lobe pneumonia. The patient has a history of 6 weeks ago hospitalization. Will nidia t him with Unasyn and doxycycline. I think aspiration should be considered. I have ordered a speech therapy consult. I think at this point in time, will hold off on resistant gram-negative coverage. Will treat him with Unasyn, doxycycline. His Keflex allergy of rash is noted. 2. Congestive heart failure. The patient has lower extremity edema, JVD, pulmonary edema on x-ray, consistent with heart failure. His BNP is also markedly elevated. He also has a new left bundle bra nch block pattern. He does not appear to be having acute coronary event, although I think a repeat c oronary evaluation would be warranted during this admission. I have ordered an echocardiogram. I [place] ve asked the safety counselor to see him in the morning, and I will diurese him with Lasix 40 IV twice da samuel. I have concern the patient had a perioperative CT around the time of his knee arthroplasty. 3. Chronic kidney disease. His creatinine is slightly higher, but he is also in heart failure. We will diurese and follow the response. 4. Recent knee arthroscopy. This looks well. Will have PT and OT see him. 5. History of sudden cardiac . He has an AICD that has never fired. 6. Prophylaxis. Therapeutically anticoagulated. DISPOSITION: Inpatient status, PCU. CODE STATUS: Full code. /[id number]/MODL
[2019-01-09] MEDS ORDERED: oxyCODONE IR 5 MG TAB PO PRN (20:06)
[2019-01-09] MEDS: DOXYCYCLINE INJ 100 MG in NS 250 ML IV SCH (21:48)
[2019-01-09] MEDS: OSELTAMIVIR 6 MG/ML UDSYR PO SCH (21:49)
--- NOTE | 2019-01-09 23:32 | CPEKG ---
Test Reason : OPEN Blood Pressure : / mmHG Vent. Rate : 065 BPM Atrial Rate : 071 BPM P-R Int : 188 ms QRS Dur : 147 ms QT Int : 486 ms P-R-T Axes : 000 -37 103 degrees QTc Int : 506 ms Atrial fibrillation Left bundle branch block Confirmed by Luis Daniel Zepeda ([id number]) on 01/09/2019 11:31:39 PM Referred By: LUIS DANIEL ZEPEDA Confirmed By:Luis Daniel Zepeda
[2019-01-09] MEDS: LATANOPROST 0.005% 2.5 ML OPHT DROPS EACHEYE SCH (23:35)
[2019-01-09] MEDS: TIMOLOL 0.5% 15 ML OPHT.BTL EACHEYE SCH (23:35)
[2019-01-09] MEDS: Brinzolamide 1% 10 ml OPHT.BTL EACHEYE SCH (23:35)
[2019-01-10] MEDS ORDERED: ALBUTEROL 3 ML DEYVIAL IH PRN (00:02)
[2019-01-10] MEDS ORDERED: FUROSEMIDE 40 MG/4 ML VIAL IVP ONE (00:03)
[2019-01-10] MEDS ORDERED: FUROSEMIDE 40 MG/4 ML VIAL ONE (00:05)
[2019-01-10 06:00] LABS: PLATELET COUNT 204 10^3/uL (150-400)
[2019-01-10] MEDS ORDERED: AMPICILLIN/SULBACTAM 1.5 GM in NS 50 ML IV SCH (06:00)
[2019-01-10] MEDS: AMPICILLIN/SULBACTAM 3 GM in NS 100 ML IV SCH ×2 (06:03→17:45)
[2019-01-10 06:08] LABS: INR 3.5 (0.83-1.16); PROTIME(PATIENT) 33.3 SEC (12.0-15.0)
[2019-01-10] MEDS: FUROSEMIDE 40 MG/4 ML VIAL IVP SCH ×2 (07:53→13:38)
[2019-01-10] MEDS: TIMOLOL 0.5% 15 ML OPHT.BTL EACHEYE SCH ×2 (07:59→20:51)
[2019-01-10] MEDS: Brinzolamide 1% 10 ml OPHT.BTL EACHEYE SCH ×2 (07:59→20:51)
[2019-01-10] MEDS ORDERED: OSELTAMIVIR PHOSPHATE 75 MG CAP PO SCH (08:00)
[2019-01-10] MEDS: OSELTAMIVIR 6 MG/ML UDSYR PO SCH ×2 (08:03→18:00)
--- NOTE | 2019-01-10 09:21 | PDMN ---
Medical Necessity Medical necessity: Pt meets IP criteria per & JEY [id number]; est los >2 mn for eval/tx of pneumonia w/CHF exacerbation & concern for recent perioperative AK; requiring further workup/monitoring, IV abx, Cardiology consult, IV diuresis & therapies; comorbid advanced age, sudden cardiac , CAD, CKD, COPD, AFIB on AC, diabetes, hx recent knee arthroscopy; per order & H&P 01/09/19
[2019-01-10] MEDS: DOXYCYCLINE INJ 100 MG in NS 250 ML IV SCH ×2 (09:44→20:51)
--- NOTE | 2019-01-10 10:22 | PDCARCONS ---
Cardiology Consult Reason for Consult: New CHF (based on elevated BNP) with cough and trouble breathing Chief Complaint: shortness of breath Requesting Physician: Hospitalist Team History of Present Illness: Patient is an 83 y/o male with history of VF arrest s/p ICD placement after the event (2014) with normal LVEF (at that time) and no critical CAD (by angiography ), NAIF (with CPAP use), HTN, HLP, COPD, DM, CRI (creatinine was noted to be 1.9 today), and atrial fibrillation (on coumadin with [id number] score of 6), who presented to [facility] ER after several days of coughing was noted. There were reports of possible fall as well as issues with gait. In speaking with the patient today, no complaints of chest pains or pressure have been noted. Patient has a cough, but according to nursing, there has not been any production noted. No PND or orthopnea has been noted. Flu swab was noted to be positive (A H3). Recent (Dec 2018) knee surgery. In review of the patient's past history, angiography from 2011 was without critical CAD, but there were some minor luminal irregularities noted. There appears to have been a heart cath in 2014, but there is no formal report (the discharge summary mentions the procedure and the findings, but I could not find the actual report from cardiology). Echocardiography in the past (2014) with normal systolic function and only mild valve pathology (mitral and tricuspid). There was aortic sclerosis, but no stenosis. Moderate elevation to the BNP was noted with this admission (14,800) and a mild elevation to troponin (0.09 at peak) with notable renal insufficiency. Patient has been on warfarin and INR today was 3.5. Remainder of the 12 point review of systems was unremarkable History Information - Allergies/Home Medication List Allergies/Adverse Reactions: cephalexin [Cephalexin] Allergy (Severe, Verified 01/09/19 15:01) Hives Home Medications: Cholecalciferol Vit D3 [Vitamin D3 (*)] 2,000 units PO DAILY 02/20/14 [Last Taken 01/08/19] Omeprazole [Prilosec 20 mg] 20 mg PO DAILY 02/20/14 [Last Taken 01/09/19] Warfarin Sodium [Coumadin 2MG (*)] 2 mg PO SUMOWETHFRSA 04/23/14 [Last Taken 09/18] Latanoprost 0.005% [Xalatan 0.005% (*)] 1 drops EACHEYE HS 01/15/15 [Last Taken 01/08/19] Brinzolamide 1% [Azopt 1%] 1 drops EACHEYE BID 02/06/18 [Last Taken 01/09/19] Calcitriol [Calcitriol (*)] 0.25 mcg PO MOFR 02/06/18 [Last Taken 01/08/19] Cetirizine [ZyrTEC 10 mg (*)] 10 mg PO HS PRN 02/06/18 [Last Taken 03/20/18] Irbesartan [Avapro] 300 mg PO DAILY 02/06/18 [Last Taken 01/08/19] glipiZIDE XL [Glucotrol Xl 2.5 mg (*)] 5 mg PO DAILY 02/06/18 [Last Taken ] Aspirin EC [Aspirin EC 81 mg (*)] 81 mg PO DAILY 01/09/19 [Last Taken 01/09/19] Atorvastatin Calcium [Lipitor 10 mg (*)] 10 mg PO HS 01/09/19 [Last Taken ] C/E/Zn/Cu/OM3/DHA/EPA/LUT/ZEAX [Preservision Areds 2 Softgel] 2 each PO BID 10/18 [Last Taken 01/08/19] Calcium 600 + Vit D 400 Softgl 1 cap PO DAILY 01/09/19 [Last Taken 01/08/19] Carvedilol [Coreg] 12.5 mg PO BID 01/09/19 [Last Taken 01/09/19] Herbals/Supplements -Info Only 1 ea PO DAILY 01/09/19 [Last Taken Unknown] Loperamide 25 mg PO DAILY PRN 01/09/19 [Last Taken Unknown] Melatonin [Melatonin 3 MG (*)] 3 mg PO HS 01/09/19 [Last Taken 01/08/19] Hydes-3S/Dha/Epa/Fish Oil [Fish Oil 1,200 mg Softgel] 1 each PO DAILY 01/09/19 [ Last Taken 01/09/19] Phenylephrine 1% Nasal [Roel-Synephrine] 1 spray EACHNARE BID PRN 01/09/19 [Last Taken Unknown] Polyethylene Glycol 1450 17 gm PO DAILY PRN 01/09/19 [Last Taken Unknown] Pseudoephedrine HCl [Sudogest] 60 mg PO BID PRN 01/09/19 [Last Taken Unknown] Psyllium Husk/Aspartame [Metamucil Fiber Singles Packet] 3.4 gm PO DAILY PRN 10/18 [Last Taken Unknown] Sodium Bicarbonate [Na Bicarb 650 MG (RX)] 650 mg PO QID 01/09/19 [Last Taken ] Solifenacin Succinate [Vesicare] 10 mg PO DAILY 01/09/19 [Last Taken Unknown] Timolol 0.5% [TIMOPTIC 0.5% (*)] 1 drops EACHEYE BID 01/09/19 [Last Taken ] Tiotropium Inhaler [Spiriva Handihaler] 18 mcg IH DAILY 01/09/19 [Last Taken Unknown] Warfarin Sodium [Coumadin 1MG (*)] 1 mg PO TU 01/09/19 [Last Taken 01/02/19] traMADol [Ultram 50 mg (*)] 50 mg PO Q6H PRN 01/09/19 [Last Taken Unknown] I have personally reviewed and updated: family history, medical history, social history Past Medical History: - Past Medical History atrial fibrillation, coronary artery disease, CHF, COPD, diabetes type 2, hypertension, hyperlipidemia, pneumonia Additional medical history: sudden cardiac . sleep apnea (with CPAP) and renal insufficiency - Surgical History Reports: pacemaker/AICD Additional surgical history: bilateral TKA - Family History Positive for: non-pertinent - Social History Smoking Status: Never smoked Alcohol Use: Rarely Drug Use: None Cardiac History - Cardiac History Past Cardiac History: CAD, ICD Cardiac Risk Factors: hypertension (>140/90), lipidemia, diabetes mellitus, age > 65, male Timing/Duration: Days, Weeks Severity: moderate Severity Scale: 6 Modifying Factors: improves with: oxygen Associated Symptoms: cough, shortness of breath Age in Years: 75 or older Sex: Male Congestive Heart Failure History: Yes Hypertension History: Yes Stroke/TIA/Thromboembolism History: No Vascular Disease History: Yes Diabetes Mellitus: Yes [id number] Score: 6 Physical Exam Physical Exam: Temp Pulse Resp BP Pulse Ox 37.8 C 78 32 H 138/51 H 97 01/10/19 07:00 01/10/19 09:00 01/10/19 09:00 01/10/19 09:00 01/10/19 09:00 O2 (L/minute) 15 FIO2 (%) 15 Constitutional: no apparent distress, appears nourished, chronically ill appearing Eyes: PERRL, EOMI Ears, Nose, Mouth, Throat: moist mucous membranes, hearing normal, ears appear normal Cardiovascular: systolic murmur, irregularly irregular, No edema Peripheral Pulses: 2+: dorsalis-pedis (R), dorsalis-pedis (L) Respiratory: reduced air movement, expiratory wheeze, inspiratory crackles, respiratory distress Gastrointestinal: normoactive bowel sounds Skin: warm Musculoskeletal: no muscle tenderness Neurologic: AAOx3, weakness, CN II-XII Intact Psychiatric: interacting appropriately Lab and Imaging 01/10/19 05:55 01/10/19 05:55 WBC 10.85 10^3/uL (3.80-9.50) H 01/10/19 05:55 RBC 3.31 10^6/uL (4.40-6.38) L 01/10/19 05:55 Hgb 10.1 g/dL (13.7-17.5) L 01/10/19 05:55 Hct 30.8 % (40.0-51.0) L 01/10/19 05:55 MCV 93.1 fL (81.5-99.8) 01/10/19 05:55 MCH 30.5 pg (27.9-34.1) 01/10/19 05:55 MCHC 32.8 g/dL (32.4-36.7) 01/10/19 05:55 RDW 15.1 % (11.5-15.2) 01/10/19 05:55 Plt Count 204 10^3/uL (150-400) 01/10/19 05:55 MPV 10.7 fL (8.7-11.7) 01/10/19 05:55 Neut % (Auto) 93.5 % (39.3-74.2) H 01/10/19 05:55 Lymph % (Auto) 2.6 % (15.0-45.0) L 01/10/19 05:55 [place] % (Auto) 3.2 % (4.5-13.0) L 01/10/19 05:55 Eos % (Auto) 0.0 % (0.6-7.6) L 01/10/19 05:55 Baso % (Auto) 0.3 % (0.3-1.7) 01/10/19 05:55 Nucleat RBC Rel Count 0.0 % (0.0-0.2) 01/10/19 05:55 Absolute Neuts (auto) 10.14 10^3/uL (1.70-6.50) H 01/10/19 05:55 Absolute Lymphs (auto) 0.28 10^3/uL (1.00-3.00) L 01/10/19 05:55 Absolute Monos (auto) 0.35 10^3/uL (0.30-0.80) 01/10/19 05:55 Absolute Eos (auto) 0.00 10^3/uL (0.03-0.40) L 01/10/19 05:55 Absolute Basos (auto) 0.03 10^3/uL (0.02-0.10) 01/10/19 05:55 Absolute Nucleated RBC 0.00 10^3/uL (0-0.01) 01/10/19 05:55 Immature Gran % 0.4 % (0.0-1.1) 01/10/19 05:55 Immature Gran # 0.04 10^3/uL (0.00-0.10) 01/10/19 05:55 RBC/WBC/PLT Morphology TNP 01/10/19 05:55 Platelet Estimate TNP 01/10/19 05:55 PT 33.3 SEC (12.0-15.0) H 01/10/19 05:55 INR 3.50 (0.83-1.16) H 01/10/19 05:55 APTT 52.4 SEC (23.0-38.0) H 01/09/19 14:50 Puncture Site RIGHT RADIAL 01/10/19 02:11 Patient Temperature 37.6 DEGREES 01/10/19 02:11 pCO2 26 mmHg (34-38) L 01/10/19 02:11 pO2 78 mmHg (65-75) H 01/10/19 02:11 Total CO2 19 mEq/L (23-27) L 01/10/19 02:11 ABG pH 7.44 (7.35-7.45) 01/10/19 02:11 ABG PO2/FiO2 Ratio 78 RATIO 01/10/19 02:11 ABG HCO3 18 mEq/L (22-26) L 01/10/19 02:11 ABG O2 Saturation 95 % (92-95) 01/10/19 02:11 ABG Base Excess -4.7 mEq/L (-2.5-2.5) L 01/10/19 02:11 VBG Lactic Acid 1.3 mmol/L (0.7-2.1) 01/09/19 16:25 Total O2 Concentration 15.0 LITERS 01/10/19 00:28 O2 Concentration % 100 % (0-100) 01/10/19 02:11 Inspiratory Pressure 20 01/10/19 02:11 Mode BiPAP YES 01/10/19 02:11 Sodium 138 mEq/L (135-145) 01/10/19 05:55 Potassium 3.9 mEq/L (3.5-5.2) 01/10/19 05:55 Chloride 107 mEq/L (97-110) 01/10/19 05:55 Carbon Dioxide 20 mEq/l (22-31) L 01/10/19 05:55 Anion Gap 11 mEq/L (6-14) 01/10/19 05:55 BUN 52 mg/dL (7-23) H 01/10/19 05:55 Creatinine 1.9 mg/dL (0.7-1.3) H 01/10/19 05:55 Estimated GFR 34 01/10/19 05:55 Glucose 191 mg/dL (70-100) H 01/10/19 05:55 Calcium 8.1 mg/dL (8.5-10.4) L 01/10/19 05:55 Total Bilirubin 1.6 mg/dL (0.1-1.4) H 01/09/19 14:50 POC Troponin I 0.08 ng/mL (0.00-0.08) 01/09/19 16:31 Troponin I 0.069 ng/mL (0.000-0.034) H 01/10/19 01:15 NT-Pro-B Natriuret Pep 56198 pg/mL (0-450) H 01/09/19 14:50 Urine Color YELLOW 01/09/19 14:00 Urine Appearance CLEAR 01/09/19 14:00 Urine pH 5.0 (5.0-7.5) 01/09/19 14:00 Ur Specific [place] 1.010 (1.002-1.030) 01/09/19 14:00 Urine Protein 1+ (NEGATIVE) H 01/09/19 14:00 Urine Ketones NEGATIVE (NEGATIVE) 01/09/19 14:00 Urine Blood 1+ (NEGATIVE) H 01/09/19 14:00 Urine Nitrate NEGATIVE (NEGATIVE) 01/09/19 14:00 Urine Bilirubin NEGATIVE (NEGATIVE) 01/09/19 14:00 Urine Urobilinogen NEGATIVE EU (0.2-1.0) 01/09/19 14:00 Ur Leukocyte Esterase NEGATIVE (NEGATIVE) 01/09/19 14:00 Urine RBC 5-10 /hpf (0-3) H 01/09/19 14:00 Urine WBC 1-3 /hpf (0-3) 01/09/19 14:00 Ur Epithelial Cells TRACE /lpf (NONE-1+) 01/09/19 14:00 Hyaline Casts 1-5 /lpf (0-1) 01/09/19 14:00 Urine Mucus TRACE /lpf (NONE-1+) 01/09/19 14:00 Urine Glucose NEGATIVE (NEGATIVE) 01/09/19 14:00
[2019-01-10] MEDS ORDERED: LACTULOSE 20 GM/30 ML UDCUP PO PRN (21:00)
[2019-01-10] MEDS ORDERED: POLYETHYLENE GLYCOL 3350 17 GM PKT PO PRN (21:00)
[2019-01-10] MEDS ORDERED: BISACODYL 10 MG SUPP PR PRN (21:00)
[2019-01-10] MEDS ORDERED: BISACODYL 10 MG SUPP PR ONE (21:10)
[2019-01-10] MEDS: SENNOSIDES/DOCUSATE SODIUM TAB PO SCH (21:21)
--- NOTE | 2019-01-10 21:28 | ASMTCMCOM ---
CM Note CM Note Notes: Pt discussed in rounds. Pt is an 83 yr. old admitted with cough & congestion, CXR reveals Pneumonia. Per his , Pt uses a C-Pap at night. Hx COPD & CHF. OT & PT to evaluate Pt. CM available for needs Plan: Likely SNF when medically cleared. Date Signed: 01/10/2019 09:27 PM Electronically Signed By:Zoila Grewal
[2019-01-10] MEDS: LATANOPROST 0.005% 2.5 ML OPHT DROPS EACHEYE SCH (21:31)
[2019-01-11] MEDS: AMPICILLIN/SULBACTAM 3 GM in NS 100 ML IV SCH (05:24)
[2019-01-11 06:17] LABS: INR 4.25 (0.83-1.16); PROTIME(PATIENT) 38.6 SEC (12.0-15.0)
[2019-01-11] MEDS ORDERED: POTASSIUM CL 20 MEQ TAB PO ONE ×2 (06:37→21:03)
[2019-01-11] MEDS: FUROSEMIDE 40 MG/4 ML VIAL IVP SCH ×2 (09:44→16:42)
[2019-01-11] MEDS: SENNOSIDES/DOCUSATE SODIUM TAB PO SCH ×2 (09:45→20:55)
[2019-01-11] MEDS: TIMOLOL 0.5% 15 ML OPHT.BTL EACHEYE SCH ×2 (09:49→20:53)
[2019-01-11] MEDS: Brinzolamide 1% 10 ml OPHT.BTL EACHEYE SCH ×2 (09:49→20:53)
[2019-01-11] MEDS: OSELTAMIVIR 6 MG/ML UDSYR PO SCH ×2 (12:13→18:30)
--- NOTE | 2019-01-11 12:53 | PDCARPN ---
Cardiology Progress Note Chief Complaint: No cardiovascular complaints today Assessment/Plan: Assessment: 01-11-19 Patient up in chair, eating breakfast this morning. No voiced cardiovascular complaints, but the patient did state that he is not feeling "much better". No CPAP/BiPAP in use today, and oxygen sats were not dropping in the manner that was noted yesterday (off said therapy). No chest pains or pressure. No PND or orthopnea. Ongoing IV diuresis, but weight reduction is not appreciated. Antiviral therapy for the noted flu diagnosis is ongoing. Hypokalemia is noted today. INR is more supratherapeutic that yesterday (query exposure to antibiotics for pulmonary issues). Echo was performed yesterday, and formal read is pending (issues with EMR led to inability to formally read this study). 01-10-19 Patient is an 83 y/o male with history of VF arrest s/p ICD placement after the event (2014) with normal LVEF (at that time) and no critical CAD (by angiography ), NAIF (with CPAP use), HTN, HLP, COPD, DM, CRI (creatinine was noted to be 1.9 today), and atrial fibrillation (on coumadin with [id number] score of 6), who presented to [facility] ER after several days of coughing was noted. There were reports of possible fall as well as issues with gait. In speaking with the patient today, no complaints of chest pains or pressure have been noted. Patient has a cough, but according to nursing, there has not been any production noted. No PND or orthopnea has been noted. Flu swab was noted to be positive (A H3). Recent (Dec 2018) knee surgery. In review of the patient' s past history, angiography from 2011 was without critical CAD, but there were some minor luminal irregularities noted. There appears to have been a heart cath in 2014, but there is no formal report (the discharge summary mentions the procedure and the findings, but I could not find the actual report from cardiology). Echocardiography in the past (2014) with normal systolic function and only mild valve pathology (mitral and tricuspid). There was aortic sclerosis, but no stenosis. Moderate elevation to the BNP was noted with this admission (14,800) and a mild elevation to troponin (0.09 at peak) with notable renal insufficiency. Patient has been on warfarin and INR today was 3.5. Plan: (1) Continue supportive measures for the diagnosis of flu (2) Would maintain IV diuresis as at present - supplement potassium (3) Cardiology to read the echo (at the time of the writing of this note, the images were just made available) (4) Cardiology will continue to follow this patient - addendum with echo report to follow Subjective: No active cardiovascular complaints Objective: Vital Signs (8 Hrs) Temp Pulse Resp BP Pulse Ox 01/11/19 11:46 37.0 C 72 21 H 111/48 L 90 L 01/11/19 08:00 54 L 21 H 113/53 L 97 Intake/Output (24 Hrs) 01/10/19 01/11/19 01/12/19 05:59 05:59 05:59 Intake Total 285 1460 Output Total 1575 1450 Balance -1290 10 Intake: Oral (ml) 1000 IV Intake (ml) 285 100 IV Infused (ml) 360 Ampicillin/Sulbactam 3 gm 100 In Ns 100 ml @ 200 mls/ hr IV Q12H RICHARD Rx#: [id number] Doxycycline Inj 100 mg In 260 Ns 250 ml @ 260 mls/hr IV Q12HRS RICHARD Rx#: [id number] Output: Urine (ml) 1575 1450 Incontinence 1200 Urinal 1575 250 Other: Weight 74.3 kg Intake Quantity Yes Sufficient Output Comment Incontinence condom cath Number of Voids Incontinence 1 Urinal 2 Number of Stools Bedside Commode 1 Result Diagrams: 01/10/19 05:55 01/11/19 05:40 Cardiac Labs: Cardiac Lab Results (72 Hrs) 01/10/19 01/09/19 01:15 23:15 Troponin I 0.069 H 0.079 H EKG: atrial fibrillation with LBBB (reportedly new finding) - Physical Exam Constitutional: WDWN, healthy appearing, no apparent distress Eyes: PERRL, EOMI Ears, Nose, Mouth, Throat: moist mucous membranes Cardiovascular: irregularly irregular, No jugular vein distention Peripheral Pulses: 2+: dorsalis-pedis (R), dorsalis-pedis (L) Respiratory: reduced air movement, expiratory wheeze, inspiratory crackles Gastrointestinal: normoactive bowel sounds Skin: no rashes, no edema Musculoskeletal: no muscular tenderness Neurologic: AAOx3, CN II-XII grossly intact Psychiatric: cooperative, interactive, following commands ICD10 Worksheet Patient Problems: Problems Problem Status Onset Afib Acute Hip osteoarthritis Acute
[2019-01-11] MEDS ORDERED: PROTOCOL K PHOSPHATE 1 DOSE IV PRN (13:09)
[2019-01-11] MEDS ORDERED: PROTOCOL CALCIUM 1 DOSE IV PRN (13:09)
[2019-01-11] MEDS ORDERED: PROTOCOL MAGNESIUM 1 DOSE IV PRN (13:09)
[2019-01-11] MEDS ORDERED: PROTOCOL POTASSIUM 1 DOSE MISC PRN (13:09)
--- NOTE | 2019-01-11 13:11 | ECHO ---
[email or web address] [address] [address] Main: [phone] Echocardiography Examination Transthoracic Name: Mark BYRD MR#: [id number] Study Date: 01/10/2019 Study Time: 11:06 AM Date of : 1935 Age: 83 year(s) Height: 175.3 cm (69 in.) Weight: 83.92 kg (185 lb.) BSA: 2 m2 Gender: Male Examination: Echo Contrast: Image Quality: Good Rhythm: Heart Rate: 70 bpm BP: 135 mmHg/78 mmHg Indication: CHF Procedure Staff Referring Physician: Operating Room Specialist: Rene Morataya RDCS Reading Physician: Gm Fernandes MD Requesting Provider: Indication: CHF Measurements Chambers AV/MV Label Value Normal Value Label Value Normal Value EF lower range (%) 65 % AV PGmax 67 mmHg EF upper range (%) 70 % AV PGmean 42 mmHg IVSd, 2D 0.9 cm (0.6cm - 1.1cm) AV Vmax, Caliper 4.1 m/s LVDd, 2D 5 cm (4.2cm - 5.9cm) CAITLYN (continuity eq. 0.6 cm2 LVDs, 2D 3.1 cm (2.1cm - 4cm) Vmax) LVEF, 2D 68 % (54% - 74%) CAITLYN D (continuity eq. 0.7 cm2 LVOT PGmax 3 mmHg VTI) LVOT PGmean 1 mmHg MR (ERO) 0.09 cm2 LVOT Vmax 0.8 m/s (0.7m/s - 1.1m/s) MR PISA Alias V. 35.1 cm/s LVOT Vmean 0.55 m/s MR PISA Radius 0.4 cm LVOTd 2 cm (1.9cm - 2.1cm) MR Reg. Fraction 2 % LVPWd, 2D 1 cm (0.6cm - 1cm) MR Reg. Volume 7 ml RVDd, 2D 2.5 cm (1.9cm - 3.8cm) MR Vmax 3.77 m/s LA Area, A2C 25.1 cm2 (0cm2 - 20cm2) MR VTI 74.6 cm LA Volume, A2C 82 ml (18ml - 58ml) MV A Vmax 0.4 m/s LA Volume, A4C 74 ml (16ml - 34ml) MV Teodora 4.1 cm LA Volume, BP 82 ml (18ml - 58ml) MV DT 320 ms LAD Index, 2D 2.1 cm/m2 MV E Vmax 1.48 m/s LADs, 2D 4.2 cm (3cm - 4cm) MV E/A 3.7 LAESV index, MOD4 37 ml/m2 MV PGmax 6 mmHg Patient: Mark BYRD Study Date: 01/10/2019 Page 1 of 3 11:06 AM Additional Vessels MV PGmean 2 mmHg Label Value Normal Value MV PHT 0.08 s AoRoot, MM 3.1 cm (2.2cm - 3.7cm) MV PHT 83 ms MV VTI 34.1 cm MVA D (continuity eq.) 1.8 cm2 MVA PHT 2.7 cm2 TV/PV Label Value Normal Value RA Pressure 5 mmHg RVSP 73 mmHg TR Pmax 68 mmHg TR Vmax 4.13 m/s PV PGmax 8 mmHg PV Vmax, Caliper 1.38 m/s (0.6m/s - 0.9m/s) Conclusions (1) Left ventriular systolic ejection fraction was normal (2) Mild to moderate LVH (3) Normal RV size and function (4) Mod biatrial dilation was noted (5) Mod to severe mitral regurgitatoin (6) Severe aortic stenosis with mean gradient of 42 mm Hg and peak velocity of 4.1 m/s (7) Mod TR with RVSP of 73 mm Hg (8) No pericardial effusion Findings Left Ventricle: Left ventricle is normal in size. Normal global systolic left ventricular function. The ejection fraction, measured by 2D, is 68 %. EF range is estimated at 65 % - 70 %. There is mild to moderate concentric left ventricular hypertrophy. There is paradoxic septal motion suggestive of bundle branch block, paced cardiac rhythm, or prior cardiac surgery. Left ventricular diastolic function parameters are normal. IVS: The septum is intact. Right Ventricle: Normal size right ventricle. Right ventricular wall thickness is normal. Right ventricular systolic function is normal. There is a pacemaker lead noted in the right ventricle. Left Atrium: The left atrium is moderately dilated. IAS: Normal appearing atrial septum. Right Atrium: The right atrium is moderately dilated. Mitral Valve: Normal . Moderate to severe mitral regurgitation. No mitral valve stenosis. There is mild mitral calcification. Aortic Valve: Aortic leaflets exhibit normal cuspal separation. No aortic valve regurgitation. There is severe aortic stenosis. There is severe aortic valve calcification. The AV Vmax is 4.1 m/s with a mean PG of 42 mmHg. The dimentionless index is .21 Tricuspid Valve: Tricuspid valve leaflets are normal in appearance and function. Moderate tricuspid regurgitation. No tricuspid valve stenosis. Right Ventricular systolic pressure is measured at 73 mmHg. Pulmonary artery pressure severely increased. Pulmonic Valve: Patient: Mark BYRD Study Date: 01/10/2019 Page 2 of 3 11:06 AM Pulmonic leaflets exhibit normal cuspal separation. No pulmonic valve regurgitation is evident. There is no pulmonic valve stenosis. Aorta: The aorta is normal. The aortic root size in M-mode measures 3.1 cm. Aorta Measurements AoRoot, MM is 3.1 cm. Pulmonary Artery: The pulmonary artery morphology appears normal. IVC: The inferior vena cava is normal in size and course. Pericardium: No pericardial effusion. No pleural effusion present. Exam Details Procedure Ordered: Echo Image Quality: Good (No Signature Object) Patient: Mark BYRD Study Date: 01/10/2019 Page 3 of 3 11:06 AM [id number]
--- NOTE | 2019-01-11 15:23 | HOSPPROG ---
Hospitalist Progress Note Assessment/Plan: 83-year-old male history of sudden cardiac , AFib, CKD, NIDDM, recent knee arthroscopy, who presents with shortness of breath and acute hypoxemic respiratory failure Influenza pneumonia- chest x-ray with right lower lobe pneumonia initially started on Unasyn and doxycycline, respiratory panel positive for fluid. -hold antibiotics -continue Tamiflu -supportive care with oxygen nebulizers etc -droplet precautions Elevated troponin-with new left bundle branch block. Cardiology consulted and patient likely needs further evaluation of his coronary artery disease but Cardiology favor waiting until resolution of current illness. Echo pending Congestive heart failure- markedly elevated BNP on admission along with cardiomegaly on chest x-ray and JVD on examination. Started on Lasix 40 mg IV twice daily and patient has responded quite well. Cardiology consulted given a mildly elevated troponin along with a new left bundle-branch block on EKG Acute hypoxemic respiratory failure- due to combination of a flu and CHF exacerbation. Manage as above. Chronic kidney disease appears to be at her around baseline renal function. Monitor History of sudden cardiac - with AICD placement. On telemetry Atrial fibrillation- chads Vasc of 6. on Coreg, and Coumadin. INR supratherapeutic today at 4.2 despite holding Coumadin for 2 days. Monitor INR daily and allowed to trend down. No bleeding currently or need for reversal. Diabetes on glipizide. Hold and cover with sliding scale insulin for now. Hypertension takes Coreg 12.5 mg twice daily along with Avapro and Norvasc. NAIF- on CPAP overnight Prophylaxis- SCDs, INR therapeutic Fluids-none Electrolytes-monitor Nutrition-regular Cor-full Dispo-remain inpatient Subjective: Breathing better today much less labored still coughing a lot though Objective: Vital Signs Temp Pulse Resp BP Pulse Ox 37.0 C 72 21 H 111/48 L 90 L 01/11/19 11:46 01/11/19 11:46 01/11/19 11:46 01/11/19 11:46 01/11/19 11:46 Laboratory Results 01/10/19 05:55 01/11/19 05:40 01/10/19 01/11/19 01/12/19 05:59 05:59 05:59 Intake Total 285 1460 Output Total 1575 1450 1950 Balance -1290 10 -1950 PT 38.6 SEC (12.0-15.0) H 03/14/19 05:40 INR 4.25 (0.83-1.16) H 01/11/19 05:40 - Physical Exam Constitutional: no apparent distress, appears nourished, not in pain Eyes: PERRL, anicteric sclera, EOMI Ears, Nose, Mouth, Throat: moist mucous membranes, hearing normal, ears appear normal, no oral mucosal ulcers Cardiovascular: regular rate and rhythym, no murmur, rub, or gallop Respiratory: reduced air movement, inspiratory crackles Gastrointestinal: normoactive bowel sounds, soft, non-tender abdomen, no palpable masses Genitourinary: no bladder fullness, no bladder tenderness, no renal bruits Skin: no rashes or abrasions, no fluctuance, no induration Musculoskeletal: full muscle strength, no muscle tenderness, normal joint ROM Neurologic: AAOx3, sensation intact bilaterally Psychiatric: interacting appropriately, not anxious, not encephalopathic, thought process linear Lymph, Heme, Immunologic: no cervical LAD, no supraclavicular LAD ICD10 Worksheet Patient Problems: Problems Problem Status Onset Afib Acute Hip osteoarthritis Acute
[2019-01-11] MEDS: LATANOPROST 0.005% 2.5 ML OPHT DROPS EACHEYE SCH (21:38)
[2019-01-12 04:43] LABS: INR 3.31 (0.83-1.16); PROTIME(PATIENT) 31.9 SEC (12.0-15.0)
[2019-01-12] MEDS ORDERED: CALCIUM GLUCONATE 50 ML IV ONE (08:00)
[2019-01-12] MEDS ORDERED: POTASSIUM CL 10 MEQ TAB PO ONE ×2 (08:03→20:18)
[2019-01-12] MEDS: FUROSEMIDE 40 MG/4 ML VIAL IVP SCH ×2 (09:07→16:08)
[2019-01-12] MEDS: SENNOSIDES/DOCUSATE SODIUM TAB PO SCH ×2 (09:08→22:05)
[2019-01-12] MEDS: OSELTAMIVIR 6 MG/ML UDSYR PO SCH ×2 (09:21→18:28)
[2019-01-12] MEDS: TIMOLOL 0.5% 15 ML OPHT.BTL EACHEYE SCH ×2 (09:23→22:12)
[2019-01-12] MEDS: Brinzolamide 1% 10 ml OPHT.BTL EACHEYE SCH ×2 (09:23→22:09)
[2019-01-12] MEDS ORDERED: D50W 25 GM/50 ML SYR IVP PRN (09:47)
[2019-01-12] MEDS: INSULIN LISPRO 100 UNIT/ML SC SCH ×2 (13:36→17:40)
--- NOTE | 2019-01-12 14:50 | GCON ---
[f rep st] CONSULTATION DATE OF CONSULTATION: 01/12/2019 Patient seen at the request of Dr. Fernandes with the patient's permission. IMPRESSION: 1. Congestive heart failure secondary to valvular heart disease with critical aortic stenosis and se pj mitral insufficiency. 2. Sleep apnea. 3. Recent left knee surgery. 4. Status post cataract surgery. 5. 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 6. Atrial fibrillation with a congestive heart failure, hypertension, age, diabetes, prior stroke, v ascular disease score of 6, on Coumadin, currently over-anticoagulated. RECOMMENDATIONS: This gentleman should be considered for valvular surgery. Given his 2-valve diseas e and otherwise stable physical condition, I do believe he would tolerate surgery. He has evidence o f baseline renal dysfunction ranging from 1.7 to 2.0. He has been followed by Nephrology for that si nce his cardiac arrest in 2014. If, in fact, his mitral valve is not as described with less than mod erate mitral insufficiency and his coronaries are clear, he may be considered a candidate for TAVR, a nd we will evaluate him for that option as well. We will schedule a SHANDA and left heart cath as well as right heart cath, presumably on this admission. I do not think his admission is consistent with p neumonia and is more likely congestive heart failure based on review of his chest x-ray. CHIEF COMPLAINT: This is an 83-year-old gentleman who presents with leg weakness and general fatigue which had progressed over a 3-day period. He denied significant shortness of breath, although he to ld the emergency room provider that he had a 2- to 3-day history of cough and shortness of breath. H is chest x-ray was consistent with congestive failure with an elevated BNP, and he was noted to have possible right lower lobe pneumonia, although in the face of a normal white blood cell count and afeb rile this was questionable. REVIEW OF SYSTEMS: Otherwise unremarkable. He did admit to significant edema of the lower extremiti es, which has responded to diuretics. MEDICAL HISTORY: Positive for COPD, although he has never smoked, and that is a questionable diagnos is. He is also diabetic. He has had hyperparathyroidism, hyperlipidemia, and chronic kidney disease . SOCIAL HISTORY: He has never smoked. 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 He drinks infrequently. PHYSICAL EXAMINATION: GENERAL: This is an elderly gentleman, very alert, oriented, very involved in his decision making and care. VITAL SIGNS: His O2 sat is 91% on room air. HEENT: Normocephalic. PERRLA, EOMI. Neck: Transmitted bruits. HEART: Rate is irregular with murmurs across the precord ium. LUNGS: Diminished at the base. ABDOMEN: Soft, nontender. EXTREMITIES: Femoral pulses are 2 +. He has resolving edema in the lower extremities. : He has an indwelling Garduno. Please see lab work for details. /[id number]/MODL
--- NOTE | 2019-01-12 15:59 | WOCRNPDOC ---
WOCRN Advanced Assessment Note - Skin Integrity Problem, Advanced Assess Left Posterior Lower Leg Dressing Type: Open to Air Integumentary Issue Intervention: Dressing Applied, Hydrogel Applied Ghada Wound Tissue: Intact, Xerotic Wound Bed Color: Red, Yellow Wound Bed Constitution: Dried Exudate Wound Edges: Attached, Well Defined Site Measurement - Head-to-Toe Length X Width X Depth (cm): 6x3x0.1 Skin Integrity Problem Comment: Patient unaware of any wounds to his lower extremeties but with history of knee surgery 12/07/18. Patient states that he has "peeling" skin to his left leg as a result of the edema following surgery and the subsequent resolution of the edema. Skin is indeed flaking and peeling. There is a wound to the posterior calf that patient was unaware of. I photographed the wound for him so he could visualize. Wound bed cleaned with NS and gauze. Wound gel applied to wound bed and covered with an Allevyn. Will send Atrac-Tain cream to the floor for application BID by nursing staff to help with the dry skin. Wound care will not continue to round.
--- NOTE | 2019-01-12 16:52 | PDCARPN ---
Cardiology Progress Note Chief Complaint: Patient feeling better today. No active cardiovascular complaints were voiced today. Assessment/Plan: Assessment: 01-12-19 Patient feeling better today. Echocardiogram from the EMR downtime was reviewed with critical as well as mod to severe MR noted. LVEF was noted to be within normal limits. No cardiovascular complaints of chest pains or pressure today. No PND or orthopnea. The last creatinine from yesterday was elevated to 2.0. INR has dropped from over 4 to 3.31 today. Patient was transferred to the PCU today. Ambulation has felt well for the patient. Angiography from 2011 with non critical, but present CAD. 01-11-19 Patient up in chair, eating breakfast this morning. No voiced cardiovascular complaints, but the patient did state that he is not feeling "much better". No CPAP/BiPAP in use today, and oxygen sats were not dropping in the manner that was noted yesterday (off said therapy). No chest pains or pressure. No PND or orthopnea. Ongoing IV diuresis, but weight reduction is not appreciated. Antiviral therapy for the noted flu diagnosis is ongoing. Hypokalemia is noted today. INR is more supratherapeutic that yesterday (query exposure to antibiotics for pulmonary issues). Echo was performed yesterday, and formal read is pending (issues with EMR led to inability to formally read this study). 01-10-19 Patient is an 83 y/o male with history of VF arrest s/p ICD placement after the event (2014) with normal LVEF (at that time) and no critical CAD (by angiography ), NAIF (with CPAP use), HTN, HLP, COPD, DM, CRI (creatinine was noted to be 1.9 today), and atrial fibrillation (on coumadin with [id number] score of 6), who presented to [facility] ER after several days of coughing was noted. There were reports of possible fall as well as issues with gait. In speaking with the patient today, no complaints of chest pains or pressure have been noted. Patient has a cough, but according to nursing, there has not been any production noted. No PND or orthopnea has been noted. Flu swab was noted to be positive (A H3). Recent (Dec 2018) knee surgery. In review of the patient' s past history, angiography from 2011 was without critical CAD, but there were some minor luminal irregularities noted. There appears to have been a heart cath in 2015, but there is no formal report (the discharge summary mentions the procedure and the findings, but I could not find the actual report from cardiology). Echocardiography in the past (2014) with normal systolic function and only mild valve pathology (mitral and tricuspid). There was aortic sclerosis, but no stenosis. Moderate elevation to the BNP was noted with this admission (14,800) and a mild elevation to troponin (0.09 at peak) with notable renal insufficiency. Patient has been on warfarin and INR today was 3.5. Plan: (1) Given the severe valve pathology noted, cardiology requested CT surgery consult for discussion about surgery on aortic and mitral valves (2) Recommendations for right, left, and COR to ensure that there has not been progression from the angiography in 2011 to present (3) Supportive measures for diagnosis of flu with this admission (4) Great care with diuresis of this patient given the critical that is noted (5) Recommendations for repeat assessment of BMP to determine if renal function worsening (6) Cardiology to follow this patient Subjective: No cardiovascular complaints today. Objective: Vital Signs (8 Hrs) Temp Pulse Resp BP Pulse Ox 01/12/19 15:27 36.7 C 54 L 12 131/62 H 100 01/12/19 14:05 56 L 99 01/12/19 11:07 36.8 C 63 20 136/53 H 90 L 01/12/19 09:39 93 Intake/Output (24 Hrs) 01/11/19 01/12/19 01/13/19 05:59 05:59 05:59 Intake Total 1460 900 Output Total 1450 3750 1550 Balance 10 -2850 -1550 Intake: Oral (ml) 1000 900 IV Intake (ml) 100 IV Infused (ml) 360 Ampicillin/Sulbactam 3 gm 100 In Ns 100 ml @ 200 mls/ hr IV Q12H RICHARD Rx#: [id number] Doxycycline Inj 100 mg In 260 Ns 250 ml @ 260 mls/hr IV Q12HRS RICHARD Rx#: [id number] Output: Urine (ml) 1450 3750 1550 Catheter 3750 1550 Incontinence 1200 Urinal 250 Other: Intake Quantity Yes Sufficient Output Comment Incontinence condom cath Number of Voids Incontinence 1 Number of Stools Bedside Commode 1 Toilet 1 Result Diagrams: 01/10/19 05:55 01/12/19 04:05 Cardiac Labs: Cardiac Lab Results (72 Hrs) 01/10/19 01/09/19 01:15 23:15 Troponin I 0.069 H 0.079 H EKG: Atrial fibrillation with LBBB pattern Echocardiogram: normal LVEF with severe and mod/severe MR - Physical Exam Constitutional: WDWN, healthy appearing, no apparent distress Eyes: PERRL, EOMI Ears, Nose, Mouth, Throat: moist mucous membranes Cardiovascular: systolic murmur, irregularly irregular, pulses symmetric bilat, No jugular vein distention Peripheral Pulses: 2+: dorsalis-pedis (R), dorsalis-pedis (L) Respiratory: clear to auscultate bilat, reduced air movement (to the bases), inspiratory crackles Gastrointestinal: normoactive bowel sounds Skin: no edema Musculoskeletal: no muscular tenderness Neurologic: AAOx3, CN II-XII grossly intact Psychiatric: cooperative, interactive, following commands ICD10 Worksheet Patient Problems: Problems Problem Status Onset Chronic Disease [facility] Care Acute Afib Acute Hip osteoarthritis Acute
--- NOTE | 2019-01-12 18:03 | HOSPPROG ---
Hospitalist Progress Note Assessment/Plan: 83-year-old male history of sudden cardiac , AFib, CKD, NIDDM, recent knee arthroscopy, who presents with shortness of breath and acute hypoxemic respiratory failure Influenza pneumonia- chest x-ray with right lower lobe pneumonia initially started on Unasyn and doxycycline, respiratory panel positive for fluid. -hold antibiotics -continue Tamiflu -supportive care with oxygen nebulizers etc -droplet precautions Elevated troponin-with new left bundle branch block. Cardiology consulted and he needs furthe evaluation of his cardiac disease and valves. CT surgery consulted and patient now going for cath for further eval and also being evaluated for possible valve repair Echo pending Congestive heart failure- markedly elevated BNP on admission along with cardiomegaly on chest x-ray and JVD on examination. Started on Lasix 40 mg IV twice daily and patient has responded quite well. Cardiology consulted given a mildly elevated troponin along with a new left bundle-branch block on EKG Acute hypoxemic respiratory failure- due to combination of a flu and CHF exacerbation. Manage as above. Chronic kidney disease appears to be at her around baseline renal function. Monitor History of sudden cardiac - with AICD placement. On telemetry Atrial fibrillation- chads Vasc of 6. on Coreg, and Coumadin. INR supratherapeutic today at 4.2 despite holding Coumadin for 2 days. Monitor INR daily and allowed to trend down. No bleeding currently or need for reversal. Diabetes on glipizide. Hold and cover with sliding scale insulin for now. Hypertension takes Coreg 12.5 mg twice daily along with Avapro and Norvasc. NAIF- on CPAP overnight Prophylaxis- SCDs, INR therapeutic Fluids-none Electrolytes-monitor Nutrition-regular Cor-full Dispo-remain inpatient Subjective: breathing much improved. Objective: Vital Signs Temp Pulse Resp BP Pulse Ox 36.7 C 54 L 12 131/62 H 100 01/12/19 15:27 01/12/19 15:27 01/12/19 15:27 01/12/19 15:27 01/12/19 15:27 Laboratory Results 01/10/19 05:55 01/11/19 01/12/19 01/13/19 05:59 05:59 05:59 Intake Total 1460 900 720 Output Total 1450 3750 1550 Balance 10 -2850 -830 PT 31.9 SEC (12.0-15.0) H 01/12/19 04:05 INR 3.31 (0.83-1.16) H 01/12/19 04:05 - Physical Exam Constitutional: no apparent distress, appears nourished, not in pain Eyes: PERRL, anicteric sclera, EOMI Ears, Nose, Mouth, Throat: moist mucous membranes, hearing normal, ears appear normal, no oral mucosal ulcers Cardiovascular: regular rate and rhythym, no murmur, rub, or gallop Respiratory: no respiratory distress, no rales or rhonchi, clear to auscultation Gastrointestinal: normoactive bowel sounds, soft, non-tender abdomen, no palpable masses Genitourinary: no bladder fullness, no bladder tenderness, no renal bruits Skin: no rashes or abrasions, no fluctuance, no induration Musculoskeletal: full muscle strength, no muscle tenderness, normal joint ROM Neurologic: AAOx3, sensation intact bilaterally Psychiatric: interacting appropriately, not anxious, not encephalopathic, thought process linear Lymph, Heme, Immunologic: no cervical LAD, no supraclavicular LAD ICD10 Worksheet Patient Problems: Problems Problem Status Onset Chronic Disease [facility] Care Acute Afib Acute Hip osteoarthritis Acute
[2019-01-12] MEDS: LATANOPROST 0.005% 2.5 ML OPHT DROPS EACHEYE SCH (22:08)
[2019-01-13] MEDS ORDERED: POTASSIUM CL 10 MEQ TAB PO ONE ×2 (07:59→20:35)
[2019-01-13] MEDS: FUROSEMIDE 40 MG/4 ML VIAL IVP SCH ×2 (08:27→15:18)
[2019-01-13] MEDS: INSULIN LISPRO 100 UNIT/ML SC SCH ×3 (08:27→17:54)
[2019-01-13] MEDS: OSELTAMIVIR 6 MG/ML UDSYR PO SCH ×2 (08:27→17:49)
[2019-01-13] MEDS: SENNOSIDES/DOCUSATE SODIUM TAB PO SCH ×2 (08:28→21:41)
[2019-01-13] MEDS: Brinzolamide 1% 10 ml OPHT.BTL EACHEYE SCH ×2 (08:28→21:41)
[2019-01-13] MEDS: TIMOLOL 0.5% 15 ML OPHT.BTL EACHEYE SCH ×2 (08:29→21:39)
--- NOTE | 2019-01-13 14:55 | ASMTCMCOM ---
CM Note CM Note Notes: 01/13/2019 Case Management Note Reviewed chart. Per meteorologist in charge, pt to have heart cath tomorrow with Dr. Soto. TAVR vs open heart possibly on Tuesday. PT recommending SNF rehab. Case Management to wait unitl after surgery to discuss rehab options with patient as recommendation may change post op. Case Management d/c poc: to be determined. Case Management to follow. Date Signed: 01/13/2019 02:54 PM Electronically Signed By:Gita Muñiz RN
[2019-01-13] MEDS ORDERED: traMADol 50 MG TAB PO PRN (15:11)
--- NOTE | 2019-01-13 15:12 | HOSPPROG ---
Hospitalist Progress Note Assessment/Plan: 83-year-old male history of cardiac arrest, AFib, CKD, NIDDM, recent knee arthroscopy, who presents with shortness of breath and acute hypoxemic respiratory failure Influenza pneumonia- chest x-ray with right lower lobe pneumonia initially started on Unasyn and doxycycline, respiratory panel positive for flu, will complete course of tamiflu VHD: critical and mod to severe MR noted, cardiology and CT surgery involved , further w/u to determine plan of care--valve replacement vs TAVR Elevated troponin-with new left bundle branch block. In setting of above, plan for cath to determine ultimate treatment plan Congestive heart failure- markedly elevated BNP on admission along with cardiomegaly on chest x-ray and JVD on examination. Started on Lasix 40 mg IV twice daily and patient has responded quite well. Acute hypoxemic respiratory failure- due to combination of a flu and CHF exacerbation. Improved and no longer requiring oxygen Chronic kidney disease appears to be at near baseline renal function, baseline creatinine around 2 History of cardia arrest- with AICD placement. On telemetry Atrial fibrillation- chads Vasc of 6. on Coreg, and Coumadin. INR supratherapeutic, will ask pharmacy to manage warfarin Diabetes on glipizide. Hold and cover with sliding scale insulin for now. Hypertension takes Coreg 12.5 mg twice daily along with Avapro and Norvasc. For the most part has been within goal range NAIF- on CPAP overnight Prophylaxis- SCDs, INR therapeutic Fluids-none Electrolytes-monitor Nutrition-regular Cor-full Dispo-remain inpatient for further cardiac w/u as above Care plan reviewed with patients son over the phone and with cardiology as above Subjective: no significant overnight events, patient currently feeling better overall Objective: Vital Signs Temp Pulse Resp BP Pulse Ox 36.5 C 53 L 13 137/54 H 98 01/13/19 11:26 01/13/19 11:26 01/13/19 11:26 01/13/19 11:26 01/13/19 11:26 Laboratory Results 01/10/19 05:55 01/13/19 04:00 01/12/19 01/13/19 01/14/19 05:59 05:59 05:59 Intake Total 900 1470 560 Output Total 3750 3600 Balance -2850 -2130 560 PT 31.9 SEC (12.0-15.0) H 01/12/19 04:05 INR 3.31 (0.83-1.16) H 01/12/19 04:05 awake alert anicteric op clear rrr with harsh murmur dec bs at bases soft nt nd no cce warm dry well perfused oriented appropriate ICD10 Worksheet Patient Problems: Problems Problem Status Onset CHF (congestive heart failure) Acute Chronic Disease [facility] Care Acute Influenza Acute Pneumonia Acute Afib Acute Hip osteoarthritis Acute
[2019-01-13] MEDS: LATANOPROST 0.005% 2.5 ML OPHT DROPS EACHEYE SCH (21:45)
[2019-01-14 04:19] LABS: PLATELET COUNT 245 10^3/uL (150-400)
[2019-01-14 05:01] LABS: INR 2.19 (0.83-1.16); PROTIME(PATIENT) 23.3 SEC (12.0-15.0)
[2019-01-14] MEDS ORDERED: FAMOTIDINE 20 MG TAB PO ONE (06:00)
[2019-01-14] MEDS ORDERED: ASPIRIN EC 325 MG TAB PO ONE (06:00)
[2019-01-14] MEDS ORDERED: DIAZEPAM 5 MG TAB PO ONE (06:00)
[2019-01-14] MEDS ORDERED: NS 1,000 ML IV ONE (06:00)
[2019-01-14] MEDS ORDERED: diphenhydrAMINE 25 MG CAP PO ONE (06:00)
[2019-01-14] MEDS: OSELTAMIVIR 6 MG/ML UDSYR PO SCH ×2 (07:50→18:08)
[2019-01-14] MEDS: FUROSEMIDE 40 MG/4 ML VIAL IVP SCH ×2 (07:50→15:14)
[2019-01-14] MEDS: Brinzolamide 1% 10 ml OPHT.BTL EACHEYE SCH ×2 (07:51→20:29)
[2019-01-14] MEDS: TIMOLOL 0.5% 15 ML OPHT.BTL EACHEYE SCH ×2 (07:51→20:29)
[2019-01-14] MEDS: SENNOSIDES/DOCUSATE SODIUM TAB PO SCH ×2 (08:06→19:05)
[2019-01-14] MEDS: INSULIN LISPRO 100 UNIT/ML SC SCH ×3 (08:06→18:03)
[2019-01-14] MEDS ORDERED: MIDAZOLAM 2 MG/2 ML VIAL ONE (09:31)
[2019-01-14] MEDS ORDERED: IOPAMIDOL (ISOVUE-370) 150 ML BTL IV ONE (09:31)
[2019-01-14] MEDS ORDERED: LIDOCAINE 1% 300 MG/30 ML SDV ONE (09:31)
[2019-01-14] MEDS ORDERED: fentaNYL 100 MCG/2 ML INJ ONE (09:31)
[2019-01-14] MEDS: TIOTROPIUM INHALER 18 MCG/DOSE 5 DOSE/MDI IH SCH (09:40)
[2019-01-14] MEDS ORDERED: OXYCODONE/APAP 5/325 TAB PO PRN (11:35)
[2019-01-14] MEDS ORDERED: HYDROCODONE/APAP 5/325 TAB PO PRN (11:35)
[2019-01-14] MEDS ORDERED: ATROPINE SULFATE 1 MG/10 ML SYR IVP PRN (11:35)
--- NOTE | 2019-01-14 11:39 | PDHPUP ---
History & Physical Update H&P update statement: This history and physical update is based on an assessment of the patient which was completed after admission or registration (within 24 hours), but prior to the surgery/procedure. H&P update: H&P reviewed & patient examined, changes noted (heart failure serious valvular heart disease...)
--- NOTE | 2019-01-14 11:39 | PDPROPOC ---
Sedation Plan of Care Sedation Plan of Care: vital signs stable, mental status noted, patient educated of risks, benefits, alternatives, patient can tolerate sedation ASA Classification: ASA 3 Planned drugs: fentanyl, midazolam Mallampati Score: Class 2 Mallampati Reference Image: Patient passed 3-3-2 rule?: Yes
--- NOTE | 2019-01-14 13:25 | CPIP ---
[f rep st] INVASIVE CARDIAC PROCEDURE DATE OF PROCEDURE: 01/14/2019 PROCEDURES PERFORMED: 1. Right heart catheterization 2. Left heart catheterization. 3. Selective coronary angiography. COMPLICATIONS: None INDICATIONS/APPROPRIATE USE CRITERIA: The patient presented to the hospital with shortness of breath and was ultimately found to have a suspected right basilar pneumonia with superimposed CHF and interstitial pulmonary edema. This was confirmed on the basis of the patient's BNP, demonstrating an N-terminal proBNP level of 14,800. Echocardiogram revealed preserved left ventricular systolic function with moderately severe mitral regurgitation. There was also suspected severe aortic stenosis on the basis of transthoracic echo and the continuity equation. The patient also has underlying chronic persistent atrial fibrillation. Because the patient has heart failure and evidence of valvular heart disease on the basis of transthoracic echo, I was asked by the surgical service to perform a right and left heart catheterization to evaluate the patient further prior to potential surgery. PROCEDURE IN DETAIL: After informed consent was obtained, n.p.o. status was confirmed, the region of the right groin was cleaned, prepped, and draped in sterile fashion. A 4-Panamanian sheath was placed through the right common femoral artery with single entry puncture of that vessel using a micropuncture technique. The procedure was repeated to the right common femoral vein with a 5 -Panamanian JR4 catheter. The patient then underwent the previously-mentioned diagnostic procedure with use of a 5-Panamanian balloon-tipped Brookfield-Eno catheter from the right groin approach. The patient's PA pressure was 58/13 with a mean pressure of 50. Pulmonary-capillary wedge pressure was 15 with an A and V-wave of 22 and 23 mmHg, respectively. RV pressure was 51/1 with an end-diastolic pressure of 8. RA pressure was 7 with an A-wave of 9 and V-wave of 9. The patient's blood pressure at that time was 152/62. Simultaneous saturations were pulled from the central PA and the right femoral artery sheath, demonstrating a Jena cardiac output of 3.65 L/min and an index of 2.08 with a heart rate of approximately 40 beats per minute. The Brookfield-Neo catheter was then removed. Saturations were obtained in the inferior vena cava as well. The PA sat was 57, AO sat 92.9, and the inferior vena cava sat was 57.6. Pulmonary vascular resistance in Wood units was 4.18. Brookfield-Neo catheter was removed. The patient had relatively severe tortuosity and probable atherosclerosis of the abdominal aorta as it was somewhat difficult to navigate the distal abdominal aorta with a standard J wire. This, however, was accomplished, and with advancement of the J wire into the thoracic aorta for purposes of placing the 1st coronary catheter, the J wire slipped across the aortic valve and into the ventricle. We left the wire in place. The 4-Panamanian sheath was exchanged for a 6-Panamanian sheath, and a 6-Panamanian Joel catheter was then placed into the left ventricle and simultaneous pressures and the area under the curve were measured. This resulted in evidence of a 14 mm [id number]-pd-[id number] gradient at relatively slow heart rates. The aortic valve area was estimated to be 1.58 given the previously measured cardiac output and systolic ejection period. A left ventriculogram was not performed secondary to the patient's history of renal insufficiency. We then turned our attention to the coronary anatomy. A JR catheter was used to cannulate the right coronary artery and selective angiography was performed, documenting a dominant right coronary which gave rise to a posterior descending and 2 posterolateral ventricular branches. Luminal irregularity consistent with underlying atherosclerosis was present. Maximal luminal stenosis was 20% in those vessels. The left main coronary lumen was approximately 5 mm in size and trifurcated into an LAD, ramus, and circumflex system. The LAD was approximately 3.5 mm in size and gave rise to an important principal diagonal branch which was 2.5 mm in size. Again, luminal irregularity within the LAD and diagonal circulation was evident on cine fluoroscopy, consistent with underlying atherosclerosis. No flow-limiting obstruction of this vessel was identified. Maximal luminal stenosis was 10% to 20% in the proximal LAD and then at the bifurcation of the LAD diagonal with a 40% diagonal lesion at its takeoff from the LAD proper and a similar 30% obstruction of the LAD at the level of the diagonal takeoff. The ramus vessel was 2.5 mm in size and free of flow-limiting disease. The circumflex was relatively small, approximately 2.5 mm in size, and gave rise to 2 small obtuse marginal branches. There was no evidence of flow-limiting obstruction. SUMMARY OF FINDINGS: Pulmonary hypertension without evidence of elevated filling pressures at present. The patient did not have large V-waves on the pulmonary-capillary wedge trace, and the pulmonary-capillary wedge pressure may be consistent with a well-diuresed patient. The patient has paiute-shoshone-vessel coronary disease which is [id number]. It is felt that the patient has at least moderate aortic stenosis on the basis of the measurements obtained. However, when we placed the Boni right catheter into the coronary and I was trying to cannulate the right coronary artery, the catheter itself slipped across the aortic valve, indicating that the aortic valve stenosis was not critical at present as it would be unlikely for a J-wire and a JR4 catheter to fall across the valve without purposely manipulating those to cross the valve in a purposeful manner. The patient has AFib with relatively slow ventricular rate, which may be compromising the patient's cardiac output and also may lead to a spuriously low gradient. When we measured the gradient with pullback across the valve from the Boni right catheter, there appeared to be a peak-to -peak gradient of 30, which would be more in line with the echocardiographic findings of a gradient of over 40. Certainly, there was a 4 m/sec jet on the transthoracic study, indicating more serious aortic stenosis. Because of this constellation of findings, it is recommended the patient undergo a transesophageal echocardiogram tomorrow morning. At the present time, we will allow the patient to eat and we will plan on holding the patient n.p.o. for a SHANDA evaluation of the aortic valve and the severity of mitral insufficiency. If indeed the patient has severe mitral regurgitation and even moderate aortic stenosis on the basis of those studies, it may be reasonable to consider a mitral valve repair or replacement along with aortic valve replacement if valvular surgery is planned for the mitral valve. Clearly, the patient would likely benefit in that eventuality with left atrial appendage ligation and an intraoperative Rodrigues Maze. At a minimum, the patient may feel better with programming his device at a faster ventricular rate to avoid significant bradycardia while in concomitant atrial fibrillation. /[id number]/MODL MTDD
[2019-01-14] MEDS ORDERED: WARFARIN SODIUM 1 MG TAB PO ONE (16:00)
--- NOTE | 2019-01-14 16:36 | HOSPPROG ---
Hospitalist Progress Note Assessment/Plan: 83-year-old male history of cardiac arrest, AFib, CKD, NIDDM, recent knee arthroscopy, who presents with shortness of breath and acute hypoxemic respiratory failure Influenza pneumonia- chest x-ray with right lower lobe pneumonia initially started on Unasyn and doxycycline, respiratory panel positive for flu, will complete course of tamiflu VHD: critical and mod to severe MR noted on echo, however on cath it did not appear as significant, cardiology and CT surgery involved, further w/u to determine plan of care--valve replacement vs TAVR. SHANDA likely in am for further evaluation and determination of plan of care. Elevated troponin-with new left bundle branch block. Cath today reveals non flow limiting coronary disease Congestive heart failure- markedly elevated BNP on admission along with cardiomegaly on chest x-ray and JVD on examination. Started on Lasix 40 mg IV twice daily and patient has responded quite well. Will continue for now. Acute hypoxemic respiratory failure- due to combination of a flu and CHF exacerbation. Improved and no longer requiring oxygen Chronic kidney disease appears to be at near baseline renal function, baseline creatinine around 2. Monitoring while being diuresed. History of cardiac arrest- with AICD placement. On telemetry Atrial fibrillation- chads Vasc of 6. on Coreg, and Coumadin. INR supratherapeutic on arrival and held, will ask pharmacy to manage warfarin Diabetes on glipizide. Hold and cover with sliding scale insulin for now. Hypertension takes Coreg 12.5 mg twice daily along with Avapro and Norvasc. For the most part has been within goal range NAIF- on CPAP overnight Prophylaxis- SCDs, INR therapeutic Fluids-none Electrolytes-monitor Nutrition-regular Cor-full Dispo-remain inpatient for further cardiac w/u as above Care plan reviewed cardiology as above Subjective: no significant overnight events, patient somewhat somnolent post cath Objective: Vital Signs Temp Pulse Resp BP Pulse Ox 36.7 C 48 L 15 147/71 H 97 01/14/19 15:30 01/14/19 15:30 01/14/19 15:30 01/14/19 15:30 01/14/19 15:30 Laboratory Results 01/14/19 03:55 01/14/19 03:55 01/13/19 01/14/19 01/15/19 05:59 05:59 05:59 Intake Total 1470 1500 200 Output Total 3600 3065 1000 Balance -2130 -1565 -800 PT 23.3 SEC (12.0-15.0) H 01/14/19 03:55 INR 2.19 (0.83-1.16) H 01/14/19 03:55 awake alert anicteric op clear rrr with harsh murmur dec bs at bases soft nt nd no cce warm dry well perfused oriented appropriate - Time Spent With Patient Time Spent with Patient: greater than 35 minutes Time Spent with Patient: Greater than 35 minutes spent on this patients care, greater than 50% of time spent counseling, educating, and coordinating care regarding the above mentioned plan. ICD10 Worksheet Patient Problems: Problems Problem Status Onset CHF (congestive heart failure) Acute Chronic Disease Mgmt/Transitonal Care Acute Influenza Acute Pneumonia Acute Afib Acute Hip osteoarthritis Acute
[2019-01-14] MEDS ORDERED: POTASSIUM CL 10 MEQ TAB PO ONE (20:12)
[2019-01-14] MEDS: LATANOPROST 0.005% 2.5 ML OPHT DROPS EACHEYE SCH (20:29)
[2019-01-15] MEDS ORDERED: POTASSIUM CL 10 MEQ TAB PO ONE (05:26)
[2019-01-15] MEDS: POTASSIUM Cl (KCl) 100 ML IV SCH ×2 (05:57→07:28)
[2019-01-15] MEDS ORDERED: NS 1,000 ML IV ONE (06:00)
[2019-01-15] MEDS ORDERED: POTASSIUM CL 20 MEQ TAB PO ONE (07:30)
[2019-01-15] MEDS ORDERED: CALCIUM GLUCONATE 50 ML IV ONE (08:00)
[2019-01-15] MEDS: FUROSEMIDE 40 MG/4 ML VIAL IVP SCH ×2 (08:35→15:30)
[2019-01-15 08:43] LABS: INR 1.54 (0.83-1.16); PROTIME(PATIENT) 17.8 SEC (12.0-15.0)
[2019-01-15] MEDS: TIOTROPIUM INHALER 18 MCG/DOSE 5 DOSE/MDI IH SCH (08:44)
[2019-01-15] MEDS: SENNOSIDES/DOCUSATE SODIUM TAB PO SCH ×2 (08:45→20:33)
[2019-01-15] MEDS: TIMOLOL 0.5% 15 ML OPHT.BTL EACHEYE SCH ×2 (08:46→20:06)
[2019-01-15] MEDS: Brinzolamide 1% 10 ml OPHT.BTL EACHEYE SCH ×2 (08:46→20:06)
[2019-01-15] MEDS: INSULIN LISPRO 100 UNIT/ML SC SCH ×3 (08:51→20:06)
--- NOTE | 2019-01-15 08:52 | PDCARPN ---
Cardiology Progress Note Chief Complaint: SOB Assessment/Plan: Assessment: HF AF severe MR Plan: 01/15/19 08:51 Pt is scheduled for SHANDA today if MR not mod-severe, and indeed severe will d/w CTS about surgery vs TAVR Non-critical CAD NPO Subjective: stable Reviewed/Discussed With: multidisciplinary team Time Spent with Patient: greater than 25 minutes Time Spent with Patient: Greater than 25 minutes spent on this patients care, greater than 50% of time spent counseling, educating, and coordinating care regarding the above mentioned plan. Objective: Vital Signs (8 Hrs) Temp Pulse Resp BP Pulse Ox 01/15/19 07:33 36.6 C 44 L 20 150/68 H 99 01/15/19 02:57 36.5 C 55 L 19 166/55 H 98 Intake/Output (24 Hrs) 01/14/19 01/15/19 01/16/19 05:59 05:59 05:59 Intake Total 1500 900 Output Total 3065 2750 Balance -1565 -1850 Intake: Oral (ml) 1500 700 IV Intake (ml) 200 Output: Urine (ml) 3065 2750 Catheter 1815 2750 Toilet 1250 Other: Weight 69 kg 65.227 kg Output Comment Catheter condom cath Number of Voids Catheter 1 Number of Stools Toilet 1 Result Diagrams: 01/14/19 03:55 01/15/19 03:45 - Physical Exam Constitutional: no apparent distress Eyes: PERRL Ears, Nose, Mouth, Throat: no oral ulcers Cardiovascular: systolic murmur, irregularly irregular Peripheral Pulses: 1+: femoral (R), femoral (L) Respiratory: clear to auscultate bilat Gastrointestinal: normoactive bowel sounds Genitourinary: no suprapubic tenderness Skin: no rashes Musculoskeletal: no muscular tenderness Neurologic: AAOx3 Psychiatric: cooperative ICD10 Worksheet Patient Problems: Problems Problem Status Onset CHF (congestive heart failure) Acute Chronic Disease Mgmt/Transitonal Care Acute Influenza Acute Pneumonia Acute Afib Acute Hip osteoarthritis Acute
--- NOTE | 2019-01-15 10:09 | POSTANESTH ---
Post Anesthetic Evaluation Cardiovascular Status: Similar to Pre-Op Cond, Other, See Comment (bradycardic, a-fib) Respiratory Status: Similar to Pre-op Cond. Level of Consciousness/Mental Status: Can Participate in Eval, Mildly Sleepy, Arousable Pain Control: Adequate, Prn Tx Ordered Nausea/Vomiting Control: Adequate, Prn Tx Ordered Complications Possibly Related to Anesthesia: None Noted
--- NOTE | 2019-01-15 10:12 | PDANEPAE ---
ANE History of Present Illness 83 yo male with flu and for SHANDA. ANE Past Medical History - Cardiovascular History Hx Hypertension: Yes Hx Arrhythmias: Yes Hx Chest Pain: No Hx Coronary Artery / Peripheral Vascular Disease: Yes Hx CHF / Valvular Disease: Yes Hx Palpitations: Yes Cardiovascular History Comment: A FIB. CAD BOIS FORTE VESSEL, , MR. HTN. h/o sudden cardiac now s/p AICD - Pulmonary History Hx COPD: Yes Hx Asthma/Reactive Airway Disease: No Hx Recent Upper Respiratory Infection: Yes Hx Oxygen in Use at Home: No Hx Sleep Apnea: Yes Pulmonary History Comment: SLEEP APNEA USES CPAP. R PNA - flu positive, s/p Tamiflu. admitted with CHF, now diuresed - Neurologic History Hx Cerebrovascular Accident: No Hx Seizures: No Hx Dementia: No - Endocrine History Hx Diabetes: Yes Hypothyroid: No Hyperthyroid: No Obesity: no Endocrine History Comment: ON ORAL MEDICATIONS PT CHECKS BLOOD SUGAR DAILY. niddm - Renal History Hx Renal Disorders: Yes Renal History Comment: BPH. BORDERLINE INCONTINENCE- USES DETROL. RECENT UTI DID ROUND OF CIPRO F/U UA WAS NEGATIVE. CKD - Liver History Hx Hepatic Disorders: No Hepatic History Comment: DOCTORS SAY HE LOOKS "JAUNDICED" BUT LFT'S ARE ALWAYS NORMAL PT THINKS ITS FROM AN EYE MEDICATION - Neurological & Psychiatric Hx Hx Neurological and Psychiatric Disorders: No Neurological / Psychiatric History Comment: neuropathy - Cancer History Hx Cancer: No - Congenital Disorder History Hx Congenital Disorders: No - GI History Hx Gastrointestinal Disorders: Yes Gastrointestinal History Comment: REFLUX - controlled with Prilosec - Other Health History Other Health History: DRY SKIN. 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 RECURRENT SINUS CONGESTION RELIEVED WITH NASAL SPRAY AND SUDAFED - Chronic Pain History Chronic Pain: Yes (osteoarthritis) - Surgical History Prior Surgeries: 1942 T&A. CARDIAC CATH 2012. ISELA 03/03/14. CARDIAC ARREST 2015 WITH icd IMPLANT ANE Review of Systems Review of Systems: - Systems Constitutional: Reports: recent illness Cardiac: Reports: irregular heart rate Respiratory: Reports: shortness of breath - Pacemaker Pacemaker Type: Permanent Pacer/Defib Pacemaker Bottom Saw Operator: QVIVO Date Pacemaker Last Checked: 11/08/17 ANE Patient History - Allergies Allergies/Adverse Reactions: cephalexin [Cephalexin] Allergy (Severe, Verified 01/09/19 15:01) Hives - Home Medications Home Medications: Cholecalciferol Vit D3 [Vitamin D3 (*)] 2,000 units PO DAILY 02/20/14 [Last Taken 01/08/19] Omeprazole [Prilosec 20 mg] 20 mg PO DAILY 02/20/14 [Last Taken 01/09/19] Warfarin Sodium [Coumadin 2MG (*)] 2 mg PO SUMOWETHFRSA 02/20/14 [Last Taken 09/18] Latanoprost 0.005% [Xalatan 0.005% (*)] 1 drops EACHEYE HS 01/15/15 [Last Taken 01/08/19] Brinzolamide 1% [Azopt 1%] 1 drops EACHEYE BID 02/06/18 [Last Taken 01/09/19] Calcitriol [Calcitriol (*)] 0.25 mcg PO MOFR 02/06/18 [Last Taken 01/08/19] Cetirizine [ZyrTEC 10 mg (*)] 10 mg PO HS PRN 02/06/18 [Last Taken 03/20/18] Irbesartan [Avapro] 300 mg PO DAILY 02/06/18 [Last Taken 01/08/19] glipiZIDE XL [Glucotrol Xl 2.5 mg (*)] 5 mg PO DAILY 02/06/18 [Last Taken ] Aspirin EC [Aspirin EC 81 mg (*)] 81 mg PO DAILY 01/09/19 [Last Taken 01/09/19] Atorvastatin Calcium [Lipitor 10 mg (*)] 10 mg PO HS 01/09/19 [Last Taken ] C/E/Zn/Cu/OM3/DHA/EPA/LUT/ZEAX [Preservision Areds 2 Softgel] 2 each PO BID 10/18 [Last Taken 01/08/19] Calcium 600 + Vit D 400 Softgl 1 cap PO DAILY 01/09/19 [Last Taken 01/08/19] Carvedilol [Coreg] 12.5 mg PO BID 01/09/19 [Last Taken 01/09/19] Herbals/Supplements -Info Only 1 ea PO DAILY 01/09/19 [Last Taken Unknown] Loperamide 25 mg PO DAILY PRN 01/09/19 [Last Taken Unknown] Melatonin [Melatonin 3 MG (*)] 3 mg PO HS 01/09/19 [Last Taken 01/08/19] [place]-3S/Dha/Epa/Fish Oil [Fish Oil 1,200 mg Softgel] 1 each PO DAILY 01/09/19 [ Last Taken 01/09/19] Phenylephrine 1% Nasal [Roel-Synephrine] 1 spray EACHNARE BID PRN 01/09/19 [Last Taken Unknown] Polyethylene Glycol 1450 17 gm PO DAILY PRN 01/09/19 [Last Taken Unknown] Pseudoephedrine HCl [Sudogest] 60 mg PO BID PRN 01/09/19 [Last Taken Unknown] Psyllium Husk/Aspartame [Metamucil Fiber Singles Packet] 3.4 gm PO DAILY PRN 10/18 [Last Taken Unknown] Sodium Bicarbonate [Na Bicarb 650 MG (RX)] 650 mg PO QID 01/09/19 [Last Taken ] Solifenacin Succinate [Vesicare] 10 mg PO DAILY 01/09/19 [Last Taken Unknown] Timolol 0.5% [TIMOPTIC 0.5% (*)] 1 drops EACHEYE BID 01/09/19 [Last Taken ] Tiotropium Inhaler [Spiriva Handihaler] 18 mcg IH DAILY 01/09/19 [Last Taken Unknown] Warfarin Sodium [Coumadin 1MG (*)] 1 mg PO TU 01/09/19 [Last Taken 01/02/19] traMADol [Ultram 50 mg (*)] 50 mg PO Q6H PRN 01/09/19 [Last Taken Unknown] - NPO status NPO Status: no food or drink >8 hours - Anes Hx Anes Hx: no prior problems - Smoking Hx Smoking Status: Never smoked - Alcohol Use Alcohol Use: Rarely - Family Anes Hx Family Anes Hx: neg - N/A Family Hx Anesthesia Complications: NONE ANE Labs/Vital Signs - Labs Result Diagrams: 01/14/19 03:55 01/15/19 03:45 - Labs - BMP Sodium: 135 Potassium: 4 Creatinine: 1.7 - Vital Signs Blood Pressure: 150/68 Heart Rate: 44 Respiratory Rate: 20 O2 Sat (%): 99 Height: 167.64 cm Weight: 65.227 kg ANE Physical Exam - Airway Neck exam: FROM Mallampati Score: Class 2 Mouth exam: poor dentition - Pulmonary Pulmonary: reduced air movement, rhonchi - Cardiovascular Cardiovascular: systolic murmur (squeaking murmur), irregularly irregular - ASA Status ASA Status: IV ANE Anesthesia Plan Anesthesia Plan: GA with mask
[2019-01-15] MEDS ORDERED: MIDAZOLAM 2 MG/2 ML VIAL IVP ONE (10:33)
[2019-01-15] MEDS ORDERED: fentaNYL 100 MCG/2 ML INJ IVP ONE (10:33)
[2019-01-15] MEDS ORDERED: BENZOCAINE UNIT DOSE SPRAY HURRICAINE MM ONE (10:33)
[2019-01-15] MEDS ORDERED: NS 500 ML IV ONE (10:33)
[2019-01-15] MEDS ORDERED: PROPOFOL 200 MG/20 ML VIAL ONE (10:48)
[2019-01-15] MEDS ORDERED: LIDOCAINE 1% 5 ML SDV ONE (10:48)
--- NOTE | 2019-01-15 12:10 | SOAPPROG ---
SOFIYA Progress Note Assessment/Plan: Assessment: mild MR/severe on echo/ non-obstructive CAD severe PH TAVR better option d/w Monica Bhandari and August Plan: 01/15/19 12:08 schedule TAVR Objective: Vital Signs Temp Pulse Resp BP Pulse Ox 36.6 C 44 L 20 150/68 H 99 01/15/19 07:33 01/15/19 10:52 01/15/19 10:52 01/15/19 10:52 01/15/19 10:52 Laboratory Results 01/14/19 03:55 01/15/19 03:45 01/14/19 01/15/19 01/16/19 05:59 05:59 05:59 Intake Total 1500 900 Output Total 3065 2750 Balance -1565 -1850 PT 17.8 SEC (12.0-15.0) H 01/15/19 08:17 INR 1.54 (0.83-1.16) H 01/15/19 08:17 ICD10 Worksheet Patient Problems: Problems Problem Status Onset CHF (congestive heart failure) Acute Chronic Disease [facility]/Transitonal Care Acute Influenza Acute Pneumonia Acute Afib Acute Hip osteoarthritis Acute
--- NOTE | 2019-01-15 12:42 | ASMTCMCOM ---
CM Note CM Note Notes: Pts case discussed in tx rounds. CM met w/ pt for dispo planning. Therapies are recommending SNF. Pt had a SHANDA today. Pt will have a TAVR at some point during this hospitalization. Pt is refusing to go to SNF. Pt reports that he feels like he can be safe and successful at home w/ his . Pt has had [facility] in the past and would like to use them again. CM made a referral. CM to follow. Plan: TBD Date Signed: 01/15/2019 12:41 PM Electronically Signed By:ABI Navarrete
--- NOTE | 2019-01-15 13:58 | CPEKG ---
Test Reason : OPEN Blood Pressure : / mmHG Vent. Rate : 057 BPM Atrial Rate : 000 BPM P-R Int : 216 ms QRS Dur : 148 ms QT Int : 553 ms P-R-T Axes : 000 026 078 degrees QTc Int : 539 ms Atrial fibrillation LBBB Unchanged in comparison to prior Confirmed by Gm Fernandes ([id number]) on 01/15/2019 1:58:26 PM Referred By: Zachery Black Confirmed By:Gm Fernandes
[2019-01-15] MEDS ORDERED: WARFARIN SODIUM 3 MG TAB PO ONE (16:00)
[2019-01-15] MEDS ORDERED: IOPAMIDOL (ISOVUE 370) 100 ML BTL IV ONE (16:46)
--- NOTE | 2019-01-15 16:46 | HOSPPROG ---
Hospitalist Progress Note Assessment/Plan: DIAGNOSES: * Acute systolic and valvular congestive heart failure * Severe mitral regurgitation and severe aortic stenosis on echocardiogram * Acute influenza pneumonia * Acute troponin elevation in indeterminate range * Acute hypoxemic respiratory failure due to above * Noncritical CAD by angiography on 01/13 * Chronic kidney disease it appears stable at baseline * History of cardiac arrest with AICD in place * AFib with chads Vasc score of 6 on Coreg and Coumadin -INR subtherapeutic on arrival * Diabetes type 2 on glipizide * Chronic hypertension * Sleep apnea on CPAP SHANDA was done today and the patient has been reviewed with Dr. Duran. At this point it is felt that the patient would be better served by TAVR than surgery for his valvular disease. Will wait to hear from Cardiology regarding plans and timing for TAVR procedure if patient agrees to proceeding. PLANS: * Wait for further word from surgery regarding planning around TAVR, sounds like possibly due planned for tomorrow * Continue IV Lasix for now * Continue to follow sugars closely continue present management * Continue CPAP Seen by me today on hospitals rounds as well as multidisciplinary rounds SUBJECTIVE: Patient says he feels notably better at this time No chest pain No shortness of breath at present OBJECTIVE Vitals reviewed: Mild hypertension, heart rate in the 40s and 50s, otherwise stable without fever Link Assembler, my review: Exam: alert oriented skin warm dry color ok resps not labored lungs clear BSs heart irregular, loud systolic murmur is noted abd soft nondistended nontender, bowel sounds present Edema still present iv site ok Lab data: Creatinine remains stable at 1.8 Sugars in good range here so far past 36 hr Stable electrolytes Objective: Vital Signs Temp Pulse Resp BP Pulse Ox 36.3 C 55 L 16 126/48 H 99 01/15/19 15:15 01/15/19 15:15 01/15/19 15:15 01/15/19 15:15 01/15/19 15:15 Laboratory Results 01/14/19 03:55 01/15/19 12:45 01/14/19 01/15/19 01/16/19 06:59 06:59 06:59 Intake Total 1500 900 550 Output Total 3065 2750 Balance -1565 -1850 550 PT 17.8 SEC (12.0-15.0) H 01/15/19 08:17 INR 1.54 (0.83-1.16) H 01/15/19 08:17 - Time Spent With Patient Time Spent with Patient: greater than 35 minutes Time Spent with Patient: Greater than 35 minutes spent on this patients care, greater than 50% of time spent counseling, educating, and coordinating care regarding the above mentioned plan. ICD10 Worksheet Patient Problems: Problems Problem Status Onset CHF (congestive heart failure) Acute Chronic Disease Mgmt/Transitonal Care Acute Influenza Acute Pneumonia Acute Afib Acute Hip osteoarthritis Acute
[2019-01-15] MEDS: LATANOPROST 0.005% 2.5 ML OPHT DROPS EACHEYE SCH (21:49)
[2019-01-16 04:52] LABS: INR 1.53 (0.83-1.16); PROTIME(PATIENT) 17.7 SEC (12.0-15.0)
--- NOTE | 2019-01-16 07:24 | PDCARPN ---
Cardiology Progress Note Chief Complaint: SOB Assessment/Plan: Assessment: HF AF severe MR Plan: 01/15/19 08:51 Pt is scheduled for SHANDA today if MR not mod-severe, and indeed severe will d/w CTS about surgery vs TAVR Non-critical CAD NPO 01/16/19 07:22 stable elevated Cr (? baseline) d/w Dr. Forman--MR does not appear severe, plan for TAVR CTAs today plan for TAVR on 01/18 Subjective: stable Reviewed/Discussed With: multidisciplinary team Time Spent with Patient: greater than 25 minutes Time Spent with Patient: Greater than 25 minutes spent on this patients care, greater than 50% of time spent counseling, educating, and coordinating care regarding the above mentioned plan. Objective: Vital Signs (8 Hrs) Temp Pulse Resp BP Pulse Ox 01/16/19 07:16 36.7 C 56 L 10 L 155/74 H 96 01/16/19 04:00 36.5 C 55 L 19 148/67 H 98 01/15/19 23:33 36.6 C 51 L 20 159/73 H 100 Intake/Output (24 Hrs) 01/15/19 01/16/19 01/17/19 05:59 05:59 05:59 Intake Total 900 1425 Output Total 2750 1625 Balance -1850 -200 Intake: Oral (ml) 700 1425 IV Intake (ml) 200 Output: Urine (ml) 2750 1625 Catheter 2750 1625 Other: Weight 65.227 kg 65.8 kg Output Comment Catheter condom cath Number of Stools Toilet 1 Result Diagrams: 01/14/19 03:55 01/16/19 03:40 - Physical Exam Constitutional: no apparent distress Eyes: PERRL Ears, Nose, Mouth, Throat: moist mucous membranes Cardiovascular: systolic murmur, irregularly irregular Peripheral Pulses: 1+: femoral (R), femoral (L) Respiratory: clear to auscultate bilat Gastrointestinal: normoactive bowel sounds Genitourinary: no suprapubic tenderness Skin: no rashes Musculoskeletal: no muscular tenderness Neurologic: AAOx3 Psychiatric: cooperative ICD10 Worksheet Patient Problems: Problems Problem Status Onset CHF (congestive heart failure) Acute Chronic Disease Mgmt/Transitonal Care Acute Influenza Acute Pneumonia Acute Afib Acute Hip osteoarthritis Acute
[2019-01-16] MEDS: SENNOSIDES/DOCUSATE SODIUM TAB PO SCH ×2 (08:43→20:30)
[2019-01-16] MEDS: TIOTROPIUM INHALER 18 MCG/DOSE 5 DOSE/MDI IH SCH (08:58)
[2019-01-16] MEDS: FUROSEMIDE 40 MG/4 ML VIAL IVP SCH (09:22)
--- NOTE | 2019-01-16 09:47 | HOSPPROG ---
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 He will get CT scans today for further assessment of large vessels which will involve contrast. With his renal issues I have S nurse to hold his diuretic for today and ask the patient to keep well hydrated during the day today. 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, my review: Exam: alert oriented skin warm dry color ok resps not labored lungs clear BSs heart irregular, loud systolic murmur is noted abd soft nondistended nontender, bowel sounds present Edema still present iv site ok Lab data: Creatinine remains stable slightly higher at 2.0 with a slight rise in BUN Sugars in good range here so far with 1 higher sugar greater than 200 Stable electrolytes Objective: Vital Signs Temp Pulse Resp BP Pulse Ox 36.7 C 60 28 H 155/74 H 98 01/16/19 07:16 01/16/19 09:00 01/16/19 09:00 01/16/19 07:16 01/16/19 09:00 Laboratory Results 01/14/19 03:55 01/16/19 03:40 03/18/19 03/19/19 03/20/19 06:59 06:59 06:59 Intake Total 900 1425 Output Total 2750 1625 Balance -1850 -200 PT 17.7 SEC (12.0-15.0) H 01/16/19 03:40 INR 1.53 (0.83-1.16) H 01/16/19 03:40 - Time Spent With Patient Time Spent with Patient: greater than 35 minutes Time Spent with Patient: Greater than 35 minutes spent on this patients care, greater than 50% of time spent counseling, educating, and coordinating care regarding the above mentioned plan. ICD10 Worksheet Patient Problems: Problems Problem Status Onset CHF (congestive heart failure) Acute Chronic Disease [facility]/Transitonal Care Acute Influenza Acute Pneumonia Acute Afib Acute Hip osteoarthritis Acute
--- NOTE | 2019-01-16 09:51 | ECHO ---
[email or web address] [address] Main: [phone] Echocardiography Examination Transesophageal Name: Mark BYRD MR#: [id number] Study Date: 01/15/2019 Study Time: 10:48 AM Date of : 1935 Age: 83 year(s) Height: ( ) Weight: ( ) BSA: Gender: Male Examination: SHANDA Contrast: Image Quality: Adequate Rhythm: Atrial fibrillation Heart Rate: 51 bpm BP: 163 mmHg/68 mmHg Indication: Eval Aortic Valve and Mitral Valve Procedure Staff Referring Physician: Sack Department Supervisor: Rene Morataya RDCS Reading Physician: Cori Bhandari MD Requesting Provider: Nic Duran DO Ordering Physician: William Soto MD Indication: Eval Aortic Valve and Mitral Valve Acute complication: None Measurements Chambers AV/MV Label Value Normal Value Label Value Normal Value LVEF visual 65 % AR Vena contracta 0.2 cm LVOT PGmax 2 mmHg AV PGmax 56 mmHg LVOT PGmean 1 mmHg AV PGmean 32 mmHg LVOT Vmax 0.68 m/s (0.7m/s - 1.1m/s) AV Vmax 3.73 m/s LVOT Vmean 0.45 m/s CAITLYN (continuity eq. 0.6 cm2 LVOTd 2.1 cm (1.9cm - 2.1cm) Vmax) CAITLYN D (continuity eq. 0.7 cm2 VTI) TV/PV Label Value Normal Value RA Pressure 10 mmHg RVSP 77 mmHg TR Pmax 67 mmHg TR Vmax 4.09 m/s Conclusions Normal LV systolic function Normal RV systolic function; defibrillator lead seen in RV Patient: Mark BYRD Study Date: 01/15/2019 Page 1 of 2 10:48 AM Severe calcific aortic stenosis with a dimensionless index of 0.2. Mild aortic regurgitation Exgi-[id number] mitral regurgitation Moderate tricuspid regurgitation with severe pulmonary hypertension, estimated RV systolic pressure 77 mm of mercury. mild atheroma in the visualized portions of the descending aorta Findings Left Ventricle: The EF is visually estimated to be 65 %. Right Ventricle: The RV function appears grossly normal. There is a pacemaker lead noted in the right ventricle. Left Atrium: The left atrium is moderately dilated. Spontaneous contrast in the left atrium. Left Atrium Appendage: There is evidence of spontaneous echo contrast ("smoke") in the left atrial appendage. No thrombus is identified. IAS: An agitated saline study was performed and was negative for intracardiac shunting. Mitral Valve: Mild to moderate mitral regurgitation. There is mild mitral calcification. Aortic Valve: The dimentionless index is .20. Mild aortic regurgitation is present. There is severe aortic stenosis. Aortic leaflets exhibit severe calcification. Tricuspid Valve: Moderate tricuspid regurgitation. Right Ventricular systolic pressure is measured at 77 mmHg. Pulmonary artery pressure is moderately to severely increased. Aorta: The aorta is normal. Mild atheroma in the descending aorta. Pericardium: No pericardial effusion. 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
[2019-01-16] MEDS: Brinzolamide 1% 10 ml OPHT.BTL EACHEYE SCH ×2 (09:53→20:29)
[2019-01-16] MEDS: INSULIN LISPRO 100 UNIT/ML SC SCH ×3 (09:53→17:24)
[2019-01-16] MEDS: TIMOLOL 0.5% 15 ML OPHT.BTL EACHEYE SCH ×2 (09:54→20:29)
[2019-01-16] MEDS ORDERED: IOPAMIDOL (ISOVUE 370) 100 ML BTL IV ONE (10:40)
[2019-01-16] MEDS: LATANOPROST 0.005% 2.5 ML OPHT DROPS EACHEYE SCH (22:21)
[2019-01-17] MEDS ORDERED: INSULIN LISPRO 100 UNIT/ML SC ONE (00:15)
[2019-01-17 04:40] LABS: INR 1.65 (0.83-1.16); PROTIME(PATIENT) 18.8 SEC (12.0-15.0)
--- NOTE | 2019-01-17 07:29 | PDCARPN ---
Cardiology Progress Note Chief Complaint: SOB Assessment/Plan: Assessment: HF AF severe MR Plan: 01/15/19 08:51 Pt is scheduled for SHANDA today if MR not mod-severe, and indeed severe will d/w CTS about surgery vs TAVR Non-critical CAD NPO 01/16/19 07:22 stable elevated Cr (? baseline) d/w Dr. Forman--MR does not appear severe, plan for TAVR CTAs today plan for TAVR on 01/1801/17/19 07:28 stable plan for TAVR in AM NPO after 12 AM Subjective: stable Reviewed/Discussed With: multidisciplinary team Time Spent with Patient: greater than 25 minutes Time Spent with Patient: Greater than 25 minutes spent on this patients care, greater than 50% of time spent counseling, educating, and coordinating care regarding the above mentioned plan. Objective: Vital Signs (8 Hrs) Temp Pulse Resp BP Pulse Ox 01/17/19 04:00 36.8 C 51 L 18 153/76 H 95 Intake/Output (24 Hrs) 01/16/19 01/17/19 01/18/19 05:59 05:59 05:59 Intake Total 1425 1400 Output Total 1625 1250 Balance -200 150 Intake: Oral (ml) 1425 1400 Output: Urine (ml) 1625 1250 Catheter 1625 1250 Other: Weight 65.8 kg 66.7 kg Number of Voids Catheter 1 Number of Stools Toilet 1 Result Diagrams: 01/14/19 03:55 01/17/19 04:06 - Physical Exam Constitutional: no apparent distress Eyes: PERRL Ears, Nose, Mouth, Throat: moist mucous membranes Cardiovascular: systolic murmur, irregularly irregular Peripheral Pulses: 1+: femoral (R), femoral (L) Respiratory: no crackles Gastrointestinal: normoactive bowel sounds Genitourinary: no suprapubic tenderness Skin: no rashes Musculoskeletal: no muscular tenderness Neurologic: AAOx3 ICD10 Worksheet Patient Problems: Problems Problem Status Onset CHF (congestive heart failure) Acute Chronic Disease Mgmt/Transitonal Care Acute Influenza Acute Pneumonia Acute Afib Acute Hip osteoarthritis Acute
[2019-01-17] MEDS ORDERED: INSULIN LISPRO 100 UNIT/ML SC SCH (07:30)
[2019-01-17] MEDS: SENNOSIDES/DOCUSATE SODIUM TAB PO SCH ×2 (08:04→22:03)
[2019-01-17] MEDS: INSULIN LISPRO 100 UNIT/ML SC SCH ×4 (08:04→21:59)
[2019-01-17] MEDS: TIMOLOL 0.5% 15 ML OPHT.BTL EACHEYE SCH ×2 (08:05→22:03)
[2019-01-17] MEDS: FUROSEMIDE 40 MG/4 ML VIAL IVP SCH ×2 (08:08→15:04)
[2019-01-17] MEDS: Brinzolamide 1% 10 ml OPHT.BTL EACHEYE SCH ×2 (09:00→22:03)
[2019-01-17] MEDS: TIOTROPIUM INHALER 18 MCG/DOSE 5 DOSE/MDI IH SCH (09:52)
[2019-01-17] MEDS ORDERED: BENZONATATE 100 MG CAP PO PRN (16:11)
--- NOTE | 2019-01-17 16:18 | HOSPPROG ---
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 He will get CT scans today for further assessment of large vessels which will involve contrast. With his renal issues I have S nurse to hold his diuretic for today and ask the patient to keep well hydrated during the day today. PLANS: * Plan on TAVR 01/18, NPO after midnight tonight * Resume Lasix now, continue with monitoring of renal function * Continue to follow sugars closely continue present management * Continue CPAP * Continue to follow INRs, off Coumadin now for procedure * Protonix added for his chronic heartburn * Tessalon added p.r.n. 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: AFib rate controlled Exam: alert oriented skin warm dry color ok resps not labored lungs clear BSs heart irregular, loud systolic murmur is noted abd soft nondistended nontender, bowel sounds present Edema still present iv site ok Lab data: Creatinine stable today at 1.8 after receiving IV contrast yesterday INR bit higher at 1.6 Objective: Vital Signs Temp Pulse Resp BP Pulse Ox 36.6 C 52 L 16 151/60 H 98 01/17/19 16:00 01/17/19 16:00 01/17/19 16:00 01/17/19 16:00 01/17/19 16:00 Laboratory Results 01/14/19 03:55 01/17/19 04:06 01/16/19 01/17/19 01/18/19 06:59 06:59 06:59 Intake Total 1425 1400 500 Output Total 1625 1250 Balance -200 150 500 PT 18.8 SEC (12.0-15.0) H 01/17/19 04:06 INR 1.65 (0.83-1.16) H 01/17/19 04:06 ICD10 Worksheet Patient Problems: Problems Problem Status Onset CHF (congestive heart failure) Acute Chronic Disease [facility]/Transitonal Care Acute Influenza Acute Pneumonia Acute Afib Acute Hip osteoarthritis Acute
--- NOTE | 2019-01-17 17:02 | PDCONSULT ---
Design Technology Professor Note: Reason for Consult: TAVR vs. SAVR Chief Complaint: shortness of breath Requesting Physician: Dr. Koch History of Present Illness: This is a pleasant 83M with complex medical history who was recently admitted with complaints of SOB and dry coughing which ultimately was dx with acute systolic CHF/questionable pneumonia. Associated symptoms include b/l LE edema with weeping sores. Workup including SHANDA demonstrates preserved EF with severe , mild-mod MR, and mod TR. He has severe pHTN on RHC and nonobstructive CAD on LHC. He still has a cough. No SOB. No history of chest surgery besides AICD. 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 He denies any current complaints. Remote history of syncope after knee surgery. - Review of Systems: 2-9 ROS was performed and otherwise negative unless stated in the HPI - Past Medical History (reviewed) Afib Coronary artery disease CHF T2DM Sudden cardiac NAIF on CPAP Renal insufficiency HTN HLD - Surgical History (reviewed) AICD Bilateral TKA - Family History (reviewed) Noncontributory - Social History (reviewed) Smoking Status: Never smoked Alcohol Use: Rarely Drug Use: None Physical Exam: Constitutional: no apparent distress, chronically ill appearing Eyes: conjunctivae normal, sclerae white Ears:appearance within normal limits, no lesions present Neck: normal appearance, no masses or tenderness, trachea midline Respiratory: CTAB, breathing unlabored, no wheezes Cardiovascular: afib, harsh systolic murmur as LUSB Peripheral Vascular System : no cyanosis, clubbing or trace edema. Skin: no rashes present, quarter-sized left calf weeping sore w dressing Neurologic: communication ability within normal limits, voice quality normal, articulation of speech normal, no evidence of aphasia Psychiatric: mood normal, affect appropriate Laboratory Reviewed in [employer]; H/H 08/30 Cr 1.8 Imaging/Diagnostics C/RHC 01/14/19 Dominant right coronary Luminal irregularity within the LAD and diagonal circulation consistent with underlying atherosclerosis. No flow-limiting obstruction of this vessel was identified. Maximal luminal stenosis was 10% to 20% in the proximal LAD and then at the bifurcation of the LAD diagonal with a 40% diagonal lesion at its takeoff from the LAD proper and a similar 30% obstruction of the LAD at the level of the diagonal takeoff. Ramus: no disease Circumflex: 2 small obtuse marginal branches w no evidence of flow-limiting obstruction. PA pressure 58/13, mean 50. PCWP 15 with an A and V-wave of 22 and 23 mmHg RV pressure was 51/1 with an end-diastolic pressure of 8 RA pressure was 7 with an A-wave of 9 and V-wave of 9 [place] cardiac output of 3.65 L/min Pulmonary vascular resistance in Wood units was 4.18. EKG 01/09/19 Atrial fibrillation w LBBB SHANDA 01/15/19 Findings Left Ventricle: The EF is visually estimated to be 65%. Right Ventricle: The RV function appears grossly normal. There is a pacemaker lead noted in the right ventricle. Left Atrium: The left atrium is moderately dilated. Spontaneous contrast in the left atrium. Left Atrium Appendage: There is evidence of spontaneous echo contrast ("smoke") in the left atrial appendage. No thrombus is identified. IAS: An agitated saline study was performed and was negative for intracardiac shunting. Mitral Valve: Mild to moderate mitral regurgitation. There is mild mitral calcification. Aortic Valve: The dimentionless index is .20. Mild aortic regurgitation is present. There is severe aortic stenosis. Aortic leaflets exhibit severe calcification. AV Vmax 3.73 m/s AV PGmean 32 mmHg AV PGmax 56 mmHg CAITLYN 0.6 cm2 Tricuspid Valve: Moderate tricuspid regurgitation. Right Ventricular systolic pressure is measured at 77 mmHg. Pulmonary artery pressure is moderately to severely increased. Aorta: The aorta is normal. Mild atheroma in the descending aorta. Pericardium: No pericardial effusion. Assessment: Severe aortic stenosis (Vmax 3.73 m/s, PGmean 32 mmHg, PGmax 56 mmHg, CAITLYN 0.6 cm2) Acute systolic and valvular congestive heart failure Mild to moderate mitral regurgitation Moderate tricuspid regurgitation with severe pulmonary hypertension History of cardiac arrest s/p AICD Atrial fibrillation on chronic anticoagulation Nonobstructive CAD Possible recent pneumonia T2DM NAIF on CPAP Renal insufficiency HTN HLD STS Risk Score Risk of Mortality:7.411% Renal Failure:17.305% Permanent Stroke:3.677% Prolonged Ventilation:20.776% DSW Infection:0.094% Reoperation:8.348% Morbidity or Mortality:35.269% Short Length of Stay:9.946% Long Length of Stay:25.606% Plan: Case d/w CT Surgeon Dr. Ovalle Agree to proceed with TAVR tomorrow given patient's frailty and increased risk for SAVR
[2019-01-17] MEDS: PANTOPRAZOLE SODIUM 40 MG TAB PO SCH (17:31)
[2019-01-17] MEDS: LATANOPROST 0.005% 2.5 ML OPHT DROPS EACHEYE SCH (22:04)
[2019-01-18 04:38] LABS: PLATELET COUNT 325 10^3/uL (150-400)
[2019-01-18 04:55] LABS: INR 1.68 (0.83-1.16)
--- NOTE | 2019-01-18 07:28 | PDCARPN ---
Cardiology Progress Note Chief Complaint: SOB Assessment/Plan: Assessment: HF AF severe MR Plan: 01/15/19 08:51 Pt is scheduled for SHANDA today if MR not mod-severe, and indeed severe will d/w CTS about surgery vs TAVR Non-critical CAD NPO 01/16/19 07:22 stable elevated Cr (? baseline) d/w Dr. Forman--MR does not appear severe, plan for TAVR CTAs today plan for TAVR on 01/1801/17/19 07:28 stable plan for TAVR in AM NPO after 12 AM 01/18/19 07:27 stable plan for TAVR this AM explained risks/possible complications of procedure including bleeding, stroke, and possible and he would like to proceed NPO Subjective: stable Reviewed/Discussed With: multidisciplinary team Time Spent with Patient: greater than 25 minutes Time Spent with Patient: Greater than 25 minutes spent on this patients care, greater than 50% of time spent counseling, educating, and coordinating care regarding the above mentioned plan. Objective: Vital Signs (8 Hrs) Temp Pulse Resp BP Pulse Ox 01/18/19 07:07 36.6 C 58 L 19 135/68 H 95 01/18/19 03:44 36.6 C 57 L 20 156/58 H 99 Intake/Output (24 Hrs) 01/17/19 01/18/19 01/19/19 05:59 05:59 05:59 Intake Total 1400 1550 Output Total 1250 450 Balance 150 1100 Intake: Oral (ml) 1400 1550 Output: Urine (ml) 1250 450 Catheter 1250 450 Other: Weight 66.7 kg 66.5 kg Number of Voids Catheter 1 62 Result Diagrams: 01/18/19 03:54 01/18/19 03:54 - Physical Exam Constitutional: no apparent distress Eyes: PERRL Ears, Nose, Mouth, Throat: moist mucous membranes Cardiovascular: systolic murmur, irregularly irregular Peripheral Pulses: 1+: femoral (R), femoral (L) Respiratory: no wheezes Gastrointestinal: normoactive bowel sounds Genitourinary: no suprapubic tenderness Skin: no rashes Musculoskeletal: no muscular tenderness Neurologic: AAOx3 Psychiatric: cooperative ICD10 Worksheet Patient Problems: Problems Problem Status Onset CHF (congestive heart failure) Acute Chronic Disease [facility]/Transitonal Care Acute Influenza Acute Pneumonia Acute Afib Acute Hip osteoarthritis Acute
[2019-01-18] MEDS: INSULIN LISPRO 100 UNIT/ML SC SCH ×4 (08:34→21:21)
[2019-01-18] MEDS ORDERED: IOPAMIDOL (ISOVUE-370) 150 ML BTL IV ONE (08:46)
[2019-01-18] MEDS ORDERED: LIDOCAINE 1% 300 MG/30 ML SDV ONE (08:46)
[2019-01-18] MEDS: TIOTROPIUM INHALER 18 MCG/DOSE 5 DOSE/MDI IH SCH (08:55)
[2019-01-18] MEDS: PANTOPRAZOLE SODIUM 40 MG TAB PO SCH (09:59)
[2019-01-18] MEDS: FUROSEMIDE 40 MG/4 ML VIAL IVP SCH ×2 (09:59→15:45)
--- NOTE | 2019-01-18 10:00 | ASMTCMCOM ---
CM Note CM Note Notes: 01/18/2019 Case Management Note Reviewed chart. TAVR today. Faxed updates to [facility]. Case Management d/c poc: [facility] Case Management will follow. Date Signed: 01/18/2019 09:59 AM Electronically Signed By:Gita Muñiz RN
[2019-01-18] MEDS: TIMOLOL 0.5% 15 ML OPHT.BTL EACHEYE SCH ×2 (10:04→21:25)
[2019-01-18] MEDS: Brinzolamide 1% 10 ml OPHT.BTL EACHEYE SCH ×2 (10:05→21:25)
[2019-01-18] MEDS: SENNOSIDES/DOCUSATE SODIUM TAB PO SCH ×2 (10:13→21:22)
[2019-01-18] MEDS ORDERED: VANCOMYCIN HCL/NORMAL SALINE 250 ML IV ONE (11:30)
--- NOTE | 2019-01-18 11:55 | PDANEPAE ---
ANE History of Present Illness ANE Past Medical History - Cardiovascular History Hx Hypertension: Yes Hx Arrhythmias: Yes Hx Chest Pain: No Hx Coronary Artery / Peripheral Vascular Disease: Yes Hx CHF / Valvular Disease: Yes Hx Palpitations: Yes Cardiovascular History Comment: A FIB. CAD BENTON VESSEL, , MR. HTN. h/o sudden cardiac now s/p AICD - Pulmonary History Hx COPD: Yes Hx Asthma/Reactive Airway Disease: No Hx Recent Upper Respiratory Infection: Yes Hx Oxygen in Use at Home: No Hx Sleep Apnea: Yes Pulmonary History Comment: SLEEP APNEA USES CPAP. R PNA - flu positive, s/p Tamiflu. admitted with CHF, now diuresed - Neurologic History Hx Cerebrovascular Accident: No Hx Seizures: No Hx Dementia: No - Endocrine History Hx Diabetes: Yes Hypothyroid: No Hyperthyroid: No Obesity: no Endocrine History Comment: ON ORAL MEDICATIONS PT CHECKS BLOOD SUGAR DAILY. niddm - Renal History Hx Renal Disorders: Yes Renal History Comment: BPH. BORDERLINE INCONTINENCE- USES DETROL. RECENT UTI DID ROUND OF CIPRO F/U UA WAS NEGATIVE. CKD - Liver History Hx Hepatic Disorders: No Hepatic History Comment: DOCTORS SAY HE LOOKS "JAUNDICED" BUT LFT'S ARE ALWAYS NORMAL PT THINKS ITS FROM AN EYE MEDICATION - Neurological & Psychiatric Hx Hx Neurological and Psychiatric Disorders: No Neurological / Psychiatric History Comment: neuropathy - Cancer History Hx Cancer: No - Congenital Disorder History Hx Congenital Disorders: No - GI History Hx Gastrointestinal Disorders: Yes Gastrointestinal History Comment: REFLUX - controlled with Prilosec - Other Health History Other Health History: DRY SKIN. 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 RECURRENT SINUS CONGESTION RELIEVED WITH NASAL SPRAY AND SUDAFED - Chronic Pain History Chronic Pain: Yes (osteoarthritis) - Surgical History Prior Surgeries: 1942 T&A. CARDIAC CATH 2011. ISELA 03/03/14. CARDIAC ARREST 2014 WITH icd IMPLANT ANE Review of Systems Review of systems is: negative Review of Systems: - Pacemaker Pacemaker Type: Permanent Pacer/Defib Pacemaker Reference Data Expert: Sure[employer] Date Pacemaker Last Checked: 11/08/17 ANE Patient History - Allergies Allergies/Adverse Reactions: cephalexin [Cephalexin] Allergy (Severe, Verified 01/09/19 15:01) Hives - Home Medications Home medications: home medication list seen and reviewed Home Medications: Cholecalciferol Vit D3 [Vitamin D3 (*)] 2,000 units PO DAILY 02/20/14 [Last Taken 01/08/19] Omeprazole [Prilosec 20 mg] 20 mg PO DAILY 02/20/14 [Last Taken 01/09/19] Warfarin Sodium [Coumadin 2MG (*)] 2 mg PO SUMOWETHFRSA 02/20/14 [Last Taken 09/18] Latanoprost 0.005% [Xalatan 0.005% (*)] 1 drops EACHEYE HS 01/15/15 [Last Taken 01/08/19] Brinzolamide 1% [Azopt 1%] 1 drops EACHEYE BID 02/06/18 [Last Taken 01/09/19] Calcitriol [Calcitriol (*)] 0.25 mcg PO MOFR 02/06/18 [Last Taken 01/08/19] Cetirizine [ZyrTEC 10 mg (*)] 10 mg PO HS PRN 02/06/18 [Last Taken 03/20/18] Irbesartan [Avapro] 300 mg PO DAILY 02/06/18 [Last Taken 01/08/19] glipiZIDE XL [Glucotrol Xl 2.5 mg (*)] 5 mg PO DAILY 02/06/18 [Last Taken ] Aspirin EC [Aspirin EC 81 mg (*)] 81 mg PO DAILY 01/09/19 [Last Taken 01/09/19] Atorvastatin Calcium [Lipitor 10 mg (*)] 10 mg PO HS 01/09/19 [Last Taken ] C/E/Zn/Cu/OM3/DHA/EPA/LUT/ZEAX [Preservision Areds 2 Softgel] 2 each PO BID 10/18 [Last Taken 01/08/19] Calcium 600 + Vit D 400 Softgl 1 cap PO DAILY 01/09/19 [Last Taken 01/08/19] Carvedilol [Coreg] 12.5 mg PO BID 01/09/19 [Last Taken 01/09/19] Herbals/Supplements -Info Only 1 ea PO DAILY 01/09/19 [Last Taken Unknown] Loperamide 25 mg PO DAILY PRN 01/09/19 [Last Taken Unknown] Melatonin [Melatonin 3 MG (*)] 3 mg PO HS 01/09/19 [Last Taken 01/08/19] Riva-3S/Dha/Epa/Fish Oil [Fish Oil 1,200 mg Softgel] 1 each PO DAILY 01/09/19 [ Last Taken 01/09/19] Phenylephrine 1% Nasal [Roel-Synephrine] 1 spray EACHNARE BID PRN 01/09/19 [Last Taken Unknown] Polyethylene Glycol 1450 17 gm PO DAILY PRN 01/09/19 [Last Taken Unknown] Pseudoephedrine HCl [Sudogest] 60 mg PO BID PRN 01/09/19 [Last Taken Unknown] Psyllium Husk/Aspartame [Metamucil Fiber Singles Packet] 3.4 gm PO DAILY PRN 10/18 [Last Taken Unknown] Sodium Bicarbonate [Na Bicarb 650 MG (RX)] 650 mg PO QID 01/09/19 [Last Taken ] Solifenacin Succinate [Vesicare] 10 mg PO DAILY 01/09/19 [Last Taken Unknown] Timolol 0.5% [TIMOPTIC 0.5% (*)] 1 drops EACHEYE BID 01/09/19 [Last Taken ] Tiotropium Inhaler [Spiriva Handihaler] 18 mcg IH DAILY 01/09/19 [Last Taken Unknown] Warfarin Sodium [Coumadin 1MG (*)] 1 mg PO TU 01/09/19 [Last Taken 01/02/19] traMADol [Ultram 50 mg (*)] 50 mg PO Q6H PRN 01/09/19 [Last Taken Unknown] - NPO status NPO Status: no food or drink >8 hours - Anes Hx Anes Hx: no prior problems - Smoking Hx Smoking Status: Never smoked - Alcohol Use Alcohol Use: Rarely - Family Anes Hx Family Anes Hx: none Family Hx Anesthesia Complications: NONE ANE Labs/Vital Signs - Labs Result Diagrams: 01/18/19 03:54 01/18/19 03:54 - Vital Signs Blood Pressure: 135/68 Heart Rate: 58 Respiratory Rate: 19 O2 Sat (%): 95 Height: 167.64 cm Weight: 66.5 kg ANE Physical Exam - Airway Neck exam: FROM Mallampati Score: Class 2 Mouth exam: normal dental/mouth exam - Pulmonary Pulmonary: no respiratory distress, clear to auscultation - Cardiovascular Cardiovascular: regular rate and rhythym - ASA Status ASA Status: IV ANE Anesthesia Plan Anesthesia Plan: MAC
[2019-01-18] MEDS ORDERED: PROPOFOL/EMULSION 500 MG/50 ML BOTTLE IV ONE (11:57)
[2019-01-18] MEDS ORDERED: fentaNYL 100 MCG/2 ML INJ ONE (12:00)
[2019-01-18] MEDS ORDERED: MIDAZOLAM 2 MG/2 ML VIAL ONE (12:00)
[2019-01-18] MEDS ORDERED: HEPARIN 10,000 UNIT/10 ML MDV (1,000 UNIT/ML) ONE ×2 (12:20)
--- NOTE | 2019-01-18 12:31 | PDPROPOC ---
Sedation Plan of Care Sedation Plan of Care: mental status noted, patient educated of risks, benefits , alternatives, patient can tolerate sedation ASA Classification: ASA 3 Planned drugs: other Mallampati Score: Class 3 Mallampati Reference Image: Patient passed 3-3-2 rule?: Yes
[2019-01-18] MEDS ORDERED: PROTAMINE SULFATE 50 MG/5 ML VIAL IVP ONE (13:46)
[2019-01-18] MEDS ORDERED: NALOXONE HCL 0.4 MG/ML INJ IVP PRN (14:14)
--- NOTE | 2019-01-18 14:14 | POSTANESTH ---
Post Anesthetic Evaluation Cardiovascular Status: Normal, Stable Respiratory Status: Normal, Stable Level of Consciousness/Mental Status: Can Participate in Eval Pain Control: Adequate, Prn Tx Ordered Nausea/Vomiting Control: Adequate, Prn Tx Ordered Complications Possibly Related to Anesthesia: None Noted
--- NOTE | 2019-01-18 15:27 | ECHO ---
[email or web address] [id number] Main: [phone] Echocardiography Examination Transthoracic Name: Mark BYRD MR#: [id number] Study Date: 01/18/2019 Study Time: 12:05 PM Date of : 1935 Age: 83 year(s) Height: 167.6 cm (66 in.) Weight: 73.94 kg (163 lb.) BSA: 1.83 m2 Gender: Male Examination: Limited Echo Contrast: Image Quality: Adequate Rhythm: Heart Rate: BP: / Indication: TAVR Procedure Staff Referring Physician: Automatic Machine Attendant: Rene Morataya RDCS Reading Physician: Hao Boothe MD Requesting Provider: Indication: TAVR Measurements Chambers AV/MV Label Value Normal Value Label Value Normal Value LVOT PGmax 1 mmHg AV PGmax 50 mmHg LVOT PGmean 0 mmHg AV PGmean 27 mmHg LVOT Vmax 0.42 m/s (0.7m/s - 1.1m/s) AV Vmax 3.54 m/s LVOT Vmean 0.32 m/s CAITLYN (continuity eq. 0.4 cm2 LVOTd 2 cm (1.9cm - 2.1cm) Vmax) CAITLYN D (continuity eq. 0.5 cm2 VTI) Conclusions Aortic Valve: Successful implantation of percutaneous corevalve in the aortic position. Post procedure there was no obvious perivalvular leaks. There is a small amount of AI along the wire that is acrosss the aortic valve temporarily. There is no compromise of the mitral valve. Preserved LV systolic function with no evidence of a pericardial effusion. Post procedure the AV Vmax is 1.0 m/s with a mean PG of 3 mmHg.. Findings Aortic Valve: Successful implantation of percutaneous corevalve in the aortic position. Post procedure there was no obvious Patient: Mark BYRD Study Date: 01/18/2019 Page 1 of 2 12:05 PM perivalvular leaks. There is a small amount of AI along the wire that is acrosss the aortic valve temporarily. There is no compromise of the mitral valve. Preserved LV systolic function with no evidence of a pericardial effusion. Post procedure the AV Vmax is 1.0 m/s with a mean PG of 3 mmHg.. Exam Details Procedure Ordered: Limited Echo Procedure Status: Routine study Image Quality: Adequate Facility Location: Cardiac Echo 1 (No Signature Object) Patient: Mark BYRD Study Date: 01/18/2019 Page 2 of 2 12:05 PM [id number]
--- NOTE | 2019-01-18 15:54 | CPIP ---
[f rep st] INVASIVE CARDIAC PROCEDURE DATE OF PROCEDURE: 01/18/2019 CO-SURGEONS: Nic Duran DO; and Dr. Jhonny Monae PROCEDURE: 1. Nonselective right groin sheathogram. 2. Nonselective left groin sheathogram. 3. Upsizing of right common femoral artery to 16-Bangladeshi sheath with double Perclose ProGlides. 4. An 8-Bangladeshi sheath to left common femoral artery. 5. A 6-Bangladeshi sheath left common femoral vein with placement of temporary pacemaker wire placed in r ight ventricle. 6. Placement of Medtronic CoreValve Evolut R 34 mm valve via the transfemoral route. INDICATIONS: Briefly, this is an 83-year-old male with history of heart failure, severe symptomatic aortic stenosis, who was evaluated by [address] surgeons and deemed to be a suitable candidate fo r a transfemoral TAVR. DESCRIPTION OF PROCEDURE: After informed consent today, the patient was brought to [facility], where the pa tient was placed under MAC anesthesia. Magnet was placed over the left ICD site. A 6-Bangladeshi sheath was placed in the right common femoral artery, verified angiographically. A 6-Bangladeshi sheath was plac ed in the left common artery, verified angiographically. This was upsized to an 8-Bangladeshi sheath. A 6-Bangladeshi sheath was then placed into the left common femoral vein with temporary pacemaker wire place d in right ventricle. Capture was assessed appropriately. The right common femoral artery was then upsized to a 16-Bangladeshi sheath after 2 Perclose ProGlides were placed in as a pre-close. The patient was administered a total of 11,000 heparin. The valve was crossed with an AL1 catheter and straight stiff Glidewire, switched out for a pigtail catheter, switched out for a Confida wire. The 16-Bangladeshi sheath was removed. An inline Medtronic CoreValve 34 mm valve was then advanced over the Confida wi re. The valve was then deployed, with a pacing rate of 100 beats per minute, across the aortic valve . Post deployment, there was no perivalvular leak noted. There was excellent EOA noted with very lo w gradients by surface echocardiogram. At this time, the wire was removed. The right groin was clos ed with bilateral Percloses. The left groin was closed with an 8-Bangladeshi Angio-Seal. The 6-Bangladeshi [facility] site was closed with manual pressure. Patient tolerated the procedure without complication. IMPRESSION: Successful placement of Medtronic CoreValve Evolut R 34 mm valve by the transfemoral rou te. PLAN: The patient will be admitted back to PCU. Further orders following clinical course. /[id number]/MODL
--- NOTE | 2019-01-18 19:28 | HOSPPROG ---
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 He will get CT scans today for further assessment of large vessels which will involve contrast. With his renal issues I have S nurse to hold his diuretic for today and ask the patient to keep well hydrated during the day today. PLANS: * Routine postprocedure monitoring after TAVR * Resume anticoagulant as per Cardiology recommendations (has been on Coumadin previously) * Continue to follow sugars closely continue present management * Continue CPAP * Protonix added for his chronic heartburn * Tessalon added p.r.n. For cough * Expect he can discharge home soon Seen by me today on hospitals rounds as well as multidisciplinary rounds SUBJECTIVE: Seen after his TAVR procedure today He is back in his room and is very comfortable lying in his bed says he feels quite well with minimal pain at the access site no other discomforts No dyspnea nausea fever symptoms OBJECTIVE Vitals reviewed: Mild hypertension, heart rate in the 40s and 50s, otherwise stable without fever [employer], my review: AFib rate controlled Exam: alert oriented relaxed skin warm dry color ok resps not labored lungs clear BSs heart irregular, loud systolic murmur is noted abd soft nondistended nontender, bowel sounds present Lab data: Sugars electrolytes and renal function all stable today INR stable 1.68 (has been off Coumadin for his TAVR procedure) Objective: Vital Signs Temp Pulse Resp BP Pulse Ox 36.7 C 56 L 20 150/57 H 97 01/18/19 19:19 01/18/19 19:19 01/18/19 19:19 01/18/19 19:19 01/18/19 19:19 Laboratory Results 01/18/19 03:54 01/18/19 03:54 01/17/19 01/18/19 01/19/19 06:59 06:59 06:59 Intake Total 1400 1550 300 Output Total 7337 898 9053 Balance 150 1100 -1200 PT 19.0 SEC (12.0-15.0) H 01/18/19 03:54 INR 1.68 (0.83-1.16) H 01/18/19 03:54 ICD10 Worksheet Patient Problems: Problems Problem Status Onset CHF (congestive heart failure) Acute Chronic Disease [facility] Acute Influenza Acute Pneumonia Acute Pulmonary hypertension due to left heart disease Acute Pulmonary hypertension due to left heart disease Acute Pulmonary hypertension due to left heart valvular disease Acute Pulmonary hypertension due to left heart valvular disease Acute Afib Acute Hip osteoarthritis Acute
[2019-01-18] MEDS: LATANOPROST 0.005% 2.5 ML OPHT DROPS EACHEYE SCH (22:19)
[2019-01-19 04:31] LABS: PLATELET COUNT 298 10^3/uL (150-400)
[2019-01-19 04:36] LABS: INR 1.54 (0.83-1.16); PROTIME(PATIENT) 17.8 SEC (12.0-15.0)
--- NOTE | 2019-01-19 08:19 | PDCARPN ---
Cardiology Progress Note Chief Complaint: SOB Assessment/Plan: Assessment: HF AF severe MR Plan: 01/15/19 08:51 Pt is scheduled for SHANDA today if MR not mod-severe, and indeed severe will d/w CTS about surgery vs TAVR Non-critical CAD NPO 01/16/19 07:22 stable elevated Cr (? baseline) d/w Dr. Forman--MR does not appear severe, plan for TAVR CTAs today plan for TAVR on 01/1801/17/19 07:28 stable plan for TAVR in AM NPO after 12 AM 01/18/19 07:27 stable plan for TAVR this AM explained risks/possible complications of procedure including bleeding, stroke, and possible and he would like to proceed NPO 01/19/19 08:18 Doing well s/p TAVR OOB change to PO lasix start norvasc 5 mg po qd Subjective: doing well Reviewed/Discussed With: multidisciplinary team Time Spent with Patient: greater than 25 minutes Time Spent with Patient: Greater than 25 minutes spent on this patients care, greater than 50% of time spent counseling, educating, and coordinating care regarding the above mentioned plan. Objective: Vital Signs (8 Hrs) Temp Pulse Resp BP Pulse Ox 01/19/19 04:00 37.4 C 58 L 18 156/79 H 95 Intake/Output (24 Hrs) 01/18/19 01/19/19 01/20/19 05:59 05:59 05:59 Intake Total 1550 700 Output Total 450 2575 Balance 1100 -1875 Intake: Oral (ml) 1550 700 Output: Urine (ml) 450 2575 Catheter 450 2575 Other: Weight 66.7 kg 65.3 kg Number of Voids Catheter 62 Result Diagrams: 01/19/19 03:46 01/19/19 03:46 - Physical Exam Constitutional: no apparent distress Eyes: PERRL Ears, Nose, Mouth, Throat: moist mucous membranes Cardiovascular: systolic murmur, irregularly irregular Peripheral Pulses: 1+: femoral (R), femoral (L) Respiratory: clear to auscultate bilat Gastrointestinal: normoactive bowel sounds Genitourinary: no suprapubic tenderness Skin: no rashes Musculoskeletal: no muscular tenderness Neurologic: AAOx3 Psychiatric: cooperative ICD10 Worksheet Patient Problems: Problems Problem Status Onset CHF (congestive heart failure) Acute Chronic Disease [facility]/Transitonal Care Acute Influenza Acute Pneumonia Acute Pulmonary hypertension due to left heart disease Acute Pulmonary hypertension due to left heart disease Acute Pulmonary hypertension due to left heart valvular disease Acute Pulmonary hypertension due to left heart valvular disease Acute Afib Acute Hip osteoarthritis Acute
--- NOTE | 2019-01-19 08:47 | ECHO ---
[email or web address] [address] [address] Main: [phone] Echocardiography Examination Transthoracic Name: Mark BYRD MR#: [id number] Study Date: 01/19/2019 Study Time: 07:35 AM Date of : 1935 Age: 83 year(s) Height: 167.6 cm (66 in.) Weight: 66.23 kg (146 lb.) BSA: 1.75 m2 Gender: Male Examination: Echo Contrast: Image Quality: Technically Difficult Rhythm: Heart Rate: BP: 156 mmHg/79 mmHg Indication: Post TAVR Procedure Staff Referring Physician: Final Cigar And Box Examiner: Edith Hernandez RDCS Reading Physician: Jerad Koch MD Requesting Provider: Indication: Post TAVR Measurements Chambers AV/MV Label Value Normal Value Label Value Normal Value EF lower range (%) 60 % AV PGmean 3 mmHg EF upper range (%) 65 % CAITLYN D (continuity eq. 2.2 cm2 LVDs, 2D 4.8 cm (2.1cm - 4cm) VTI) LVOT PGmean 1 mmHg TAVR Post AV Vmax 1.16 m/s LVOT Vmean 0.53 m/s MV A Vmax 0.25 m/s LVOTd 2 cm (1.9cm - 2.1cm) MV DT 246 ms LA Volume, BP 111 ml (18ml - 58ml) MV E' lateral 0.08 m/s LADs, 2D 3.8 cm (3cm - 4cm) MV E' mean 0.08 m/s LAESV index, BP 63.4 ml/m2 MV E' septal 0.07 m/s MV E Vmax 1.22 m/s MV E/A 4.88 MV E/E' lateral 16.2 MV E/E' mean 16.27 MV E/E' septal 16.7 (0.45 - 1.25) TV/PV Label Value Normal Value RA Pressure 5 mmHg RVSP 49 mmHg TR Pmax 44 mmHg TR Vmax 3.33 m/s Patient: Mark BYRD Study Date: 01/19/2019 Page 1 of 3 07:35 AM Conclusions Left Ventricle: EF range is estimated at 60 % - 65 %. Mitral Valve: Mild mitral regurgitation. Tricuspid Valve: Mild tricuspid regurgitation. Right Ventricular systolic pressure is measured at 49 mmHg. Structural Heart: Post TAVR Results: A Medtronic Core transcatheter heart valve was used. Overall Conclusions: Normal TAVR function no PV leak Findings Left Ventricle: Diastolic dysfunction is present. All remaining LV segments have normal motion.. EF range is estimated at 60 % - 65 %. There is mild concentric left ventricular hypertrophy. There is paradoxic septal motion suggestive of bundle branch block, paced cardiac rhythm, or prior cardiac surgery. Right Ventricle: Right ventricular systolic function is normal. There is an ICD lead noted in the right ventricle. Left Atrium: The left atrium is moderately dilated. Right Atrium: The right atrium is moderately dilated. Mitral Valve: Mild mitral regurgitation. There is mild to moderate mitral calcification. There is moderate mitral calcification. Tricuspid Valve: Tricuspid valve leaflets are structurally normal. Mild tricuspid regurgitation. Right Ventricular systolic pressure is measured at 49 mmHg. Pulmonic Valve: Pulmonic valve is poorly visualized. Structural Heart: Post TAVR Results: A Medtronic Core transcatheter heart valve was used. Exam Details Procedure Ordered: Echo Procedure Status: Routine study Image Quality: Technically Difficult Facility Location: Cardiac Echo 1 Patient: Mark BYRD Study Date: 01/19/2019 Page 2 of 3 07:35 AM (No Signature Object) Patient: Mark BYRD Study Date: 01/19/2019 Page 3 of 3 07:35 AM [id number]
[2019-01-19] MEDS: TIOTROPIUM INHALER 18 MCG/DOSE 5 DOSE/MDI IH SCH (08:49)
[2019-01-19] MEDS: SENNOSIDES/DOCUSATE SODIUM TAB PO SCH (09:11)
[2019-01-19] MEDS: PANTOPRAZOLE SODIUM 40 MG TAB PO SCH (09:11)
[2019-01-19] MEDS: FUROSEMIDE 80 MG TAB PO SCH ×2 (09:11→15:35)
[2019-01-19] MEDS: amLODIPine BESYLATE 5 MG TAB PO SCH (09:11)
[2019-01-19] MEDS: TIMOLOL 0.5% 15 ML OPHT.BTL EACHEYE SCH (09:12)
[2019-01-19] MEDS: Brinzolamide 1% 10 ml OPHT.BTL EACHEYE SCH (09:13)
[2019-01-19] MEDS: INSULIN LISPRO 100 UNIT/ML SC SCH ×3 (10:13→17:28)
[2019-01-19] MEDS ORDERED: WARFARIN SODIUM 3 MG TAB PO ONE (16:00)
--- NOTE | 2019-01-19 16:38 | ASMTCMCOM ---
CM Note CM Note Notes: 01/19/2019 Case Management Note Phone call from karley Miller [phone]. Angela expresses concern w/pt returning home with home care. Angela requests that PT ensure that pt can get himself out of bed to the bathroom alone. If not, Angela expects pt to be d/c to SNF. Pt is unable to transfer him. Met w/pt to discuss discharge plan. Pt agreed to referrals to [facility] and [facility]. Pt would like to go home but aware that getting out of bed alone is a reasonable concern for family. Karley Miller requests phone call after PT eval to discuss d/c plan. Case Management has 2 plans to be decided by PT evaluation of pt ability to transfer from bed to bathroom. Plan 1) home with [facility] if independent in transfer Plan 2) to SNF rehab if requiring assistance with transfer Case Management d/c poc: to be determined. Case Management to follow. Date Signed: 01/19/2019 04:37 PM Electronically Signed By:Gita Muñiz RN
--- NOTE | 2019-01-19 16:41 | HOSPPROG ---
Hospitalist Progress Note Assessment/Plan: 83-year-old male history of sudden cardiac , AFib, CKD, NIDDM, recent knee arthroscopy, who presents with shortness of breath and acute hypoxemic respiratory failure * Acute systolic and valvular congestive heart failure -appears compensated at this point. back on oral lasix, with no oxygen requirement * Severe mitral regurgitation and severe aortic stenosis on echocardiogram -status post TAVR on 01/18 -repeat TTE today * Acute influenza pneumonia; has completed full course of Tamiflu * Acute troponin elevation in indeterminate range; is not suspected to have acute coronary syndrome * Acute hypoxemic respiratory failure due to above- back on room air * Noncritical CAD by angiography on 01/13 * Chronic kidney disease it appears stable at baseline * History of cardiac arrest with AICD in place * * AFib with chads Vasc score of 6 on Coreg and Coumadin -Coumadin resumed today * Diabetes type 2 on glipizide- oral medication held and on SSI. * Chronic hypertension- norvasc started today. * Sleep apnea on CPAP chronically * Chronic GERD and reflux heartburn -on PPI Prophylaxis- SCDs, INR therapeutic Fluids-none Electrolytes-monitor Nutrition-regular Cor-full Dispo-remain inpatient. [facility] in 1-2 days. SNF recommended and patient initially refusing but now considering. Subjective: feeling well. no complaints. Objective: Vital Signs Temp Pulse Resp BP Pulse Ox 36.6 C 65 18 129/57 H 97 01/19/19 16:00 01/19/19 16:00 01/19/19 16:00 01/19/19 16:00 01/19/19 16:00 Laboratory Results 01/19/19 03:46 01/19/19 03:46 01/18/19 01/19/19 01/20/19 05:59 05:59 05:59 Intake Total 1550 700 Output Total 450 2575 Balance 1100 -1875 PT 17.8 SEC (12.0-15.0) H 01/19/19 03:46 INR 1.54 (0.83-1.16) H 01/19/19 03:46 - Physical Exam Constitutional: no apparent distress, appears nourished, not in pain Eyes: PERRL, anicteric sclera, EOMI Ears, Nose, Mouth, Throat: moist mucous membranes, hearing normal, ears appear normal, no oral mucosal ulcers Cardiovascular: regular rate and rhythym, no murmur, rub, or gallop Respiratory: no respiratory distress, no rales or rhonchi, clear to auscultation Gastrointestinal: normoactive bowel sounds, soft, non-tender abdomen, no palpable masses Genitourinary: no bladder fullness, no bladder tenderness, no renal bruits Skin: no rashes or abrasions, no fluctuance, no induration Musculoskeletal: full muscle strength, no muscle tenderness, normal joint ROM Neurologic: AAOx3, sensation intact bilaterally Psychiatric: interacting appropriately, not anxious, not encephalopathic, thought process linear Lymph, Heme, Immunologic: no cervical LAD, no supraclavicular LAD ICD10 Worksheet Patient Problems: Problems Problem Status Onset CHF (congestive heart failure) Acute Chronic Disease [facility]/Trans[facility]onal Care Acute Influenza Acute Pneumonia Acute Pulmonary hypertension due to left heart disease Acute Pulmonary hypertension due to left heart disease Acute Pulmonary hypertension due to left heart valvular disease Acute Pulmonary hypertension due to left heart valvular disease Acute Afib Acute Hip osteoarthritis Acute
[2019-01-20] MEDS: LATANOPROST 0.005% 2.5 ML OPHT DROPS EACHEYE SCH (00:24)
[2019-01-20] MEDS: INSULIN LISPRO 100 UNIT/ML SC SCH ×3 (00:25→13:34)
[2019-01-20] MEDS: TIMOLOL 0.5% 15 ML OPHT.BTL EACHEYE SCH ×2 (00:25→12:06)
[2019-01-20] MEDS: Brinzolamide 1% 10 ml OPHT.BTL EACHEYE SCH ×2 (00:25→09:00)
[2019-01-20] MEDS: SENNOSIDES/DOCUSATE SODIUM TAB PO SCH ×2 (00:26→08:35)
[2019-01-20 04:08] LABS: PLATELET COUNT 269 10^3/uL (150-400)
[2019-01-20 04:26] LABS: INR 1.57 (0.83-1.16); PROTIME(PATIENT) 18.1 SEC (12.0-15.0)
[2019-01-20] MEDS: FUROSEMIDE 80 MG TAB PO SCH ×2 (08:35→14:13)
[2019-01-20] MEDS: PANTOPRAZOLE SODIUM 40 MG TAB PO SCH (08:35)
[2019-01-20] MEDS: amLODIPine BESYLATE 5 MG TAB PO SCH (08:35)
[2019-01-20] MEDS ORDERED: amLODIPine BESYLATE 5 MG TAB PO SCH (09:24)
--- NOTE | 2019-01-20 09:27 | PDCARPN ---
Cardiology Progress Note Chief Complaint: SCHF/severe s/p TAVR Assessment/Plan: Assessment: 83-year-old male with severe aortic stenosis, permanent atrial fibrillation, diabetes, chronic renal insufficiency, LBBB. In 2014 he had an [id number] VF arrest and now has a [employer] ICD. He has non flow-limiting coronary disease by [facility] in 2014. He was admitted with CHF, confusion, and difficulty achieving ADLs. Echo from admission showed severe . SHANDA confirmed this, and he proceeded to TAVR on 01/18 after treatment for acute influenza. Echo from 01/19 shows EF 60-65%, mild concentric LVH, paradoxical septal motion, mod LA/RA dilation, mod MAC, mild MR, mild TR, RVSP 49, normal TAVR with no perivalvular leak. L/RHC from this admission 01/14 shows noncritical CAD and severe pHTN without elevated LV filling pressures. #. CHF: precipitated by severe VHD now appears euvolemic continue lower dose Lasix has diuresed approximately 20 kg since admission #. permanent AF: continue Warfarin for [id number] of at least 3 rates appear controlled will have him resume lower dose Carvedilol given h/o VT #. VT: resume Carvedilol has ICD in place occasional single PVCs on telemetry #. NAIF: continue CPAP #. CKD: Cr 1.9 which is likely baseline for him #. htn: some elevated pressures will reduce Amlodipine dose to allow for re-addition of Carvedilol could consider stopping Carvedilol to reintroduce his Irbesartan Plan: - OK to d/c from cardiology perspective when dispo arranged - he has follow up in our structural heart clinic 01/20/19 09:09 Subjective: No SOB, no cough. No edema. Feels uncertain about getting home due to having ear infection and not being able to cook. Also, he cannot get in and out of bed alone. Objective: Vital Signs (8 Hrs) Temp Pulse Resp BP Pulse Ox 01/20/19 07:53 98.2 F 67 14 146/74 H 97 01/20/19 05:50 68 17 95 01/20/19 04:00 98.4 F 66 20 134/67 H 97 Intake/Output (24 Hrs) 01/19/19 01/20/19 01/21/19 05:59 05:59 05:59 Intake Total 700 850 Output Total 2575 1250 Balance -1875 850 -1250 Intake: Oral (ml) 700 850 Output: Urine (ml) 2575 1250 Catheter 2575 1250 Other: Weight 65.3 kg 64.9 kg Number of Stools Toilet 1 Result Diagrams: 01/20/19 03:56 01/20/19 03:56 Telemetry: reviewed Echocardiogram: reviewed - Physical Exam Constitutional: no apparent distress Eyes: anicteric sclera Cardiovascular: irregularly irregular, No systolic murmur Respiratory: clear to auscultate bilat, no crackles Gastrointestinal: normoactive bowel sounds Skin: other (no NANIKA) Psychiatric: cooperative, interactive ICD10 Worksheet Patient Problems: Problems Problem Status Onset CHF (congestive heart failure) Acute Chronic Disease [facility] Acute Influenza Acute Pneumonia Acute Pulmonary hypertension due to left heart disease Acute Pulmonary hypertension due to left heart disease Acute Pulmonary hypertension due to left heart valvular disease Acute Pulmonary hypertension due to left heart valvular disease Acute Afib Acute Hip osteoarthritis Acute
[2019-01-20 11:06] VITALS: BP 125/63
[2019-01-20] MEDS: TIOTROPIUM INHALER 18 MCG/DOSE 5 DOSE/MDI IH SCH (11:24)
--- NOTE | 2019-01-20 13:56 | PDDCSUM ---
Discharge Summary Discharge Summary: Discharge diagnosis CHF Influenza
--- NOTE | 2019-01-20 13:57 | PDIAF ---
- Diagnosis Code Status: Full Code - Medication Management Discharge Medications: electronically signed and located in the Home Medication List. - Orders Services needed: Registered Nurse, Physical Therapy, Occupational Therapy Isolation Type: Droplet Isolation Diet Recommendation: cardiac -low fat low salt Diet Texture: Regular Texture Diet, Thin Liquids, Meds Whole w/Liquids Additional Instructions: Groin precautions until 01/27/19: 1) no lifting greater than 10 lbs 2) no squats or pushing/pulling 3) keep activity light - walking 4) OK to shower but avoid hot tubs, bathtubs, swimming Follow up with cardiology in the next 1-2 weeks. - Labs/Radiology PT/INR Date: 01/21/19 (INRs until goal 2-3 reached and stable. ) - Follow Up Care Current Providers and Referrals: Jerad Koch MD [Medical Doctor] - 01/29/19 2:30 pm NONE *PRIMARY CARE P,. [Unknown] - As per Instructions
--- NOTE | 2019-01-20 14:19 | ASMTCMCOM ---
CM Note CM Note Notes: Met with Pt and Angela on the phone and both agreed on [facility]. I contacted [facility] and Pt has been accepted and will be transferred at 1500. Both Pt and Angela aware of time. Updated Discharge paper work sent via [employer]. CM available if needs arise. PLAN: Discharge to [facility] for rehab Date Signed: 01/20/2019 02:18 PM Electronically Signed By:Zoila Grewal
--- NOTE | 2019-01-20 14:22 | ASMTLACE ---
LACE Length of stay for Answers: 7-13 days current admission Acuity / Level of Answers: Yes Care: Did the patient have an inpatient admission? Comorbidities - select Answers: Chronic pulmonary disease all that apply Diabetes (uncontrolled or controlled) Moderate or severe liver or renal disease Other Notes: HLD; AICD # of Emergency department Answers: 1-2 visits in the last 6 months Score: 17 Date Signed: 01/20/2019 02:21 PM Electronically Signed By:Zoila Grewal
[2019-01-20] MEDS ORDERED: WARFARIN SODIUM 2 MG TAB PO SCH (16:00)
--- NOTE | 2019-01-20 17:39 | PDDCSUM ---
Discharge Summary Discharge Summary: Discharge diagnosis Influenza a Acute hypoxemic respiratory failure Acute congestive heart failure exacerbation Diabetes COPD CKD NAIF Hypertension Atrial fibrillation on Coumadin Severe aortic stenosis Mitral regurg moderate to severe 83-year-old male with past medical history as listed above admitted with acute hypoxemic respiratory failure. His flu swab was positive and so started on Tamiflu but he also had an elevated BNP suggestive of acute exacerbation of congestive heart failure along with a new left bundle branch block and so Cardiology was consulted. An echocardiogram was obtained which showed severe aortic stenosis and severe mitral regurg. CT surgery was consulted for consideration of a TAVR assuming his mitral valve disease was not severe. He was taken for right and heart catheterization which did show critical aortic stenosis along with moderate to severe mitral regurg. He underwent a transesophageal echocardiogram for further evaluation of his valvular heart disease and was felt to have severe with moderate to severe MR that would best be treated with TAVR. Ultimately he underwent trans aortic valve replacement on January 18. Repeat echocardiogram after the procedure showed no valve leaks. He recovered well and ultimately was discharged to [facility] facility to regain his strength prior to discharging home. Disposition formerly [facility] I spent over 30 min on the discharge of this patient
[2019-01-20] MEDS ORDERED: CARVEDILOL 6.25 MG TAB PO SCH (18:00)
--- NOTE | 2019-01-23 10:07 | GOP ---
[f rep st] OPERATIVE REPORT DATE OF OPERATION: 01/18/2019 SURGEON: Nic Duran DO PREOPERATIVE DIAGNOSIS: Critical aortic stenosis. POSTOPERATIVE DIAGNOSIS: Critical aortic stenosis. PROCEDURE PERFORMED: Placement of [employer] core valve Evolut R 34 mm via the transfemoral route. FINDINGS: DESCRIPTION OF PROCEDURE: After access across the valve was obtained by Dr. Koch (please see sepa rate dictation), I placed the device across the annulus under fluoroscopic guidance and deployed it w ith excellent contact, with approximately 3-4 mm overlap inferiorly. No impingement on the mitral va lve and no perivalvular leak. Gradients were excellent. The sheath was removed. The groin was clos ed by Dr. Koch; please see separate dictation. CO-SURGEONS: Roger Koch, and Chung Swan. /[id number]/MODL
[2019-01-23] MEDS ORDERED: WARFARIN SODIUM 1 MG TAB PO SCH (16:00)
== END 2019-01-20 15:05 | DRG 266 ==
LOC: EDUNIT# → F2W 18:35 → F2N 01-10 00:33 → F2W 01-11 15:50
PROVIDERS: ADMIT Internal Medicine; ATTEND Internal Medicine
PROC: B2111ZZ Fluoroscopy of Multiple Coronary Arteries using Low Osmolar Contrast (ICD-10-PCS; 2019-01-14)
PROC: 4A023N7 Measurement of Cardiac Sampling and Pressure, Left Heart, Percutaneous Approach (ICD-10-PCS; 2019-01-14)
PROC: 02RF38Z Replacement of Aortic Valve with Zooplastic Tissue, Percutaneous Approach (ICD-10-PCS; principal; 2019-01-18)
DX: I13.0 Hypertensive heart and chronic kidney disease with heart failure and stage 1 through stage 4 chronic kidney disease, or unspecified chronic kidney disease (principal); I35.0 Nonrheumatic aortic (valve) stenosis; I50.23 Acute on chronic systolic (congestive) heart failure; J96.01 Acute respiratory failure with hypoxia; Z00.6 Encounter for examination for normal comparison and control in clinical research program; J10.08 Influenza due to other identified influenza virus with other specified pneumonia; N18.9 Chronic kidney disease, unspecified; I44.7 Left bundle-branch block, unspecified; E11.9 Type 2 diabetes mellitus without complications; J44.9 Chronic obstructive pulmonary disease, unspecified; G47.33 Obstructive sleep apnea (adult) (pediatric); I48.91 Unspecified atrial fibrillation; I34.0 Nonrheumatic mitral (valve) insufficiency; I36.1 Nonrheumatic tricuspid (valve) insufficiency; N40.0 Benign prostatic hyperplasia without lower urinary tract symptoms; I25.10 Atherosclerotic heart disease of native coronary artery without angina pectoris; K21.9 Gastro-esophageal reflux disease without esophagitis; Z79.01 Long term (current) use of anticoagulants; Z95.810 Presence of automatic (implantable) cardiac defibrillator; Z96.653 Presence of artificial knee joint, bilateral; Z86.74 Personal history of sudden cardiac arrest
CPT/HCPCS: 84484-ER; 92526-GN; 92610-GN; 96374; 97110-GP; 97116-GP; 97162-GP; 97166-GO; 97168-GO; 97530-GP; 97535-GO; C1760; C1769; C1894; G0515-GO; J0295; J0461; J0610; J1644; J1815; J1940; J2250; J2704; J2720; J3010; J3370; J3480; J7613; Q9967

== ENCOUNTER 2019-02-15 06:08 | Inpatient (IN) | payer OTHER ==
--- NOTE | 2019-02-15 06:17 | EDPHY ---
H & P Time Seen by Provider: 02/15/19 06:16 HPI/ROS: HPI CHIEF COMPLAINT: Confusion HISTORY OF PRESENT ILLNESS: This patient is a 83-year-old male he arrives by ambulance from his private residence where his called EMS 911 [place] for increasing confusion. According to EMS he has been confused at home however he just arrived home 3 days ago from his rehab facility. Is reported by EMS that he was confused this evening and pulling his pants down. The patient did not want to be transported the hospital and denies any complaints. Upon arrival to the emergency room he is alert and oriented times 4. He does not appear confused he answers all my questions appropriately. He states he does not want to be here and does not have any complaints. His family is yet to arrived to the emergency room so I am unable to get any history at this time from them. Will continue with basic workup for confusion. Is possible that he has delirium sundowning from recent changes of medical facilities including being at [facility] for prolonged period of time, then [facility] rehab, and then now being at home. Past Medical History: Significant past medical history for a hypoxic respiratory failure, COPD, chronic kidney disease, obstructive sleep apnea, diabetes, recent hospitalization for influenza a, critical aortic stenosis status post TAVR, AFib on Coumadin Past Surgical History: TAVR, left chest AICD. Social History: Was recently at [facility], now at home Family History: Noncontributory ROS REVIEW OF SYSTEMS: 10 Systems were reviewed and negative with the exception of the elements mentioned in the history of present illness. Exam Constitutional elderly, nontoxic, triage nursing summary reviewed, vital signs reviewed, awake/alert. Eyes normal conjunctivae and sclera, EOMI, PERRLA. HENT normal inspection, atraumatic, moist mucus membranes, no epistaxis, neck supple/ no meningismus, no raccoon eyes. Respiratory clear to auscultation bilaterally, normal breath sounds, no respiratory distress, no wheezing. Cardiovascular rate normal, regular rhythm, no murmur, no edema, distal pulses normal. Gastrointestinal soft, non-tender, no rebound, no guarding, normal bowel sounds, no distension, no pulsatile mass. Genitourinary no CVA tenderness. Musculoskeletal bilateral lower extremity pitting edema, no midline vertebral tenderness, full range of motion, no calf swelling, no tenderness of extremities , no meningismus, good pulses, neurovascularly intact. Skin pink, warm, & dry, no rash, skin atraumatic. Neurologic awake, alert and oriented x 3, AAOx3, moves all 4 extremities equally, motor intact, sensory intact, CN II-XII intact, normal cerebellar, normal vision, normal speech. Psychiatric normal mood/affect. Heme/Lymph/Immune no lymphadenopathy. Differential Diagnosis: Includes but is not limited to in a particular order dementia, delirium, encephalopathy, urinary tract infection, electrolyte disturbance, sepsis, infection Medical Decision Making: Plan for this patient basic blood draw, urinalysis, will await family to see how confused he is however here in emergency room he is mentating appropriately answers my questions appropriately tells me what date it is, who the president is, where he is, does not appear acutely confused. Re-evaluation: EKG interpretation by me on record in InhibOx system. Impression time of EKG 6:35 a.m., AFib rate of 45 PVC present this EKG appears similar to the 01/22/[address] elevation. His workup in the emergency room shows chronic kidney disease with an elevated creatinine and BUN higher than his baseline, additionally his urinalysis concerning for possible urinary tract infection, additionally does. Dry on exam but does have peripheral edema. Additionally is noted be bradycardic and is EKG is reading AFib. Also noted he has elevated troponin. The patient denies any chest pain or shortness of breath. Plan for this patient he will be admitted the hospital service for confusion of unclear etiology at this time Additionally dehydrated with worsening kidney function Elevated troponin He does not have any chest pain. Vital signs are stable but noted be bradycardic I spoke with the hospitalist service Dr. Patel who agrees to admit Chest x-ray one view reviewed by myself cardiomegaly present. AICD in place. Slight haziness bilateral lung acuña however I do not appreciate significant failure. 7:45 a.m. I spoke with Dr. Garcia, discussed case with him. Plan for cardiology team to see him today. Updated patient and family his is at bedside as well as his son. He has had stuttering confusion over the past week. Patient is resting comfortably at this time 7:46 a.m. Without any chest pain or shortness of breath. He has no complaints. His describes a picture of significant confusion over the last 3-4 days. Source: Patient, EMS - Personal History Tetanus Vaccine Date: 4 years ago - Medical/Surgical History Hx Asthma: No Hx Chronic Respiratory Disease: Yes Hx Diabetes: Yes Hx Cardiac Disease: Yes Hx Renal Disease: Yes Hx Cirrhosis: No Hx Alcoholism: No Hx HIV/AIDS: No Hx Splenectomy or Spleen Trauma: No Other PMH: atrial fibrillation, CAD, osteoarthritis, COPD, NAIF W/ CPAP, BPH, DM , HTN, Chronic kidney disease, macular degeneration, hyperlipidemia, tonsillectomy, adenoidectomy, cryptogenic liver disease with jaundice; Right hip replacement 2013; L knee replacement, PPM - Social History Smoking Status: Never smoked Constitutional: Initial Vital Signs Temperature (C) 36.6 C 02/15/19 06:28 Heart Rate 47 L 02/15/19 06:28 Respiratory Rate 18 02/15/19 06:28 Blood Pressure 156/55 H 02/15/19 06:28 O2 Sat (%) 96 02/15/19 06:28 O2 Delivery Mode Nasal Cannula O2 (L/minute) 3 Allergies/Adverse Reactions: cephalexin [Cephalexin] Allergy (Severe, Verified 02/15/19 06:27) Hives Home Medications: Medication Instructions Recorded Cholecalciferol Vit D3 [Vitamin D3 2,000 units PO DAILY 02/20/14 (*)] Latanoprost 0.005% [Xalatan 0.005% 1 drops EACHEYE HS 01/15/15 (*)] Calcitriol [Calcitriol (*)] 0.25 mcg PO MOFR 02/06/18 Furosemide [Lasix 40 MG (*)] 40 mg PO DAILY tab 03/23/18 Atorvastatin Calcium [Lipitor 10 10 mg PO HS 01/09/19 mg (*)] C/E/Zn/Cu/OM3/DHA/EPA/LUT/ZEAX 2 each PO BID 01/09/19 [Preservision Areds 2 Softgel] Herbals/Supplements -Info Only 1 ea PO DAILY 01/09/19 Melatonin [Melatonin 3 MG (*)] 3 mg PO HS 01/09/19 Polyethylene Glycol 3350 [Miralax 17 gm PO DAILY PRN #0 01/09/19 17 gm (*)] Psyllium Husk/Aspartame [Metamucil 3.4 gm PO DAILY PRN 01/09/19 Fiber Singles Packet] Sodium Bicarbonate [Na Bicarb] 650 mg PO QID 01/09/19 Solifenacin Succinate [Vesicare] 10 mg PO DAILY 01/09/19 Timolol 0.5% [TIMOPTIC 0.5% (*)] 1 drops EACHEYE BID 01/09/19 Tiotropium Inhaler [Spiriva 18 mcg IH DAILY 01/09/19 Handihaler] Warfarin Sodium [Coumadin 1MG (*)] 1 mg PO MOFR 01/09/19 Brinzolamide 1% [Azopt 1%] 1 drops EACHEYE BID opht.btl 01/20/19 Carvedilol [Coreg (*)] 6.25 mg PO BIDMEAL tab 01/20/19 Pantoprazole Sodium [Protonix 40mg 40 mg PO DAILY tab 01/20/19 (*)] Aspirin [Aspirin 81mg (*)] 81 mg PO DAILY 02/15/19 Cyanocobalamin [Vitamin B12 (*)] 1,000 mcg PO DAILY 02/15/19 Sennosides/Docusate Sodium 1 tab PO BID PRN 02/15/19 [Senokot-S] Vitamin B Complex [Vitamin B 1 each PO DAILY 02/15/19 Complex (OTC)] Warfarin Sodium [Coumadin 1MG (*)] 1.5 mg PO SUTUWETHSA 02/15/19 amLODIPine BESYLATE [Norvasc 2.5 2.5 mg PO DAILY 02/15/19 mg (*)] glipiZIDE XL [Glucotrol Xl] 5 mg PO DAILY 02/15/19 traMADol [Ultram 50 mg (*)] 50 mg PO Q6HRS PRN 02/15/19 Medical Decision Making - Data Points Laboratory Results: Laboratory Results 02/15/19 06:10 02/15/19 06:10 Microbiology Results: MICROBIOLOGY 02/15/19 06:20 Urine,Clean Catch Urine Culture - Preliminary Gram Neg John Lactose Tester Equipment Medications Given: Amlodipine Besylate (Norvasc) 2.5 mg PO DAILY [facility] Stop: 08/15/19 08:59 Last Admin: 02/16/19 10:50 Dose: 2.5 mg Aspirin (Aspirin) 81 mg PO DAILY [facility] Stop: 08/15/19 08:59 Last Admin: 02/16/19 10:51 Dose: 81 mg Atorvastatin Calcium (Lipitor) 10 mg PO HS [facility] Stop: 08/14/19 20:59 Last Admin: 02/16/19 21:00 Dose: 10 mg Brinzolamide (Azopt 1%) 1 drops EACHEYE BID [facility] Stop: 08/14/19 20:59 Last Admin: 02/16/19 21:01 Dose: 1 drops Carvedilol (Coreg) 6.25 mg PO BIDMEAL [facility]ARD Stop: 08/14/19 17:59 Last Admin: 02/16/19 17:01 Dose: 6.25 mg Insulin Human Lispro (Humalog Lispro) 0 unit SC TIDMEAL [facility] PRN Reason: Protocol Stop: 08/14/19 11:59 Last Admin: 02/16/19 18:31 Dose: Not Given Latanoprost (Xalatan 0.005%) 1 drops EACHEYE HS [facility] Stop: 08/14/19 20:59 Last Admin: 02/15/19 23:01 Dose: 1 drops Melatonin (Melatonin) 3 mg PO HS [facility] Stop: 08/14/19 20:59 Last Admin: 02/16/19 21:00 Dose: 3 mg Multivitamins/Minerals (Preservision Areds2 Formula) 2 each PO BID [facility] Stop: 08/14/19 20:59 Last Admin: 02/16/19 21:00 Dose: 2 each Pantoprazole Sodium (Protonix) 40 mg PO DAILY [facility] Stop: 08/15/19 08:59 Last Admin: 02/16/19 10:51 Dose: 40 mg Sodium Bicarbonate (Na Bicarb) 650 mg PO QID [facility] Stop: 08/14/19 20:59 Last Admin: 02/16/19 21:00 Dose: 650 mg Solifenacin (Vesicare) 10 mg PO DAILY [facility] Stop: 08/15/19 08:59 Last Admin: 02/16/19 10:50 Dose: 10 mg Timolol Maleate (Timoptic 0.5%) 1 drops EACHEYE BID [facility] Stop: 08/14/19 20:59 Last Admin: 02/16/19 21:01 Dose: 1 drops Tiotropium [place] (Spiriva Handihaler) 18 mcg IH DAILY [facility] Stop: 08/15/19 08:59 Last Admin: 04/19/19 10:23 Dose: 1 cap Vitamin B Complex (Vitamin B Complex) 1 ea PO DAILY [facility] Stop: 08/15/19 08:59 Last Admin: 02/16/19 10:51 Dose: 1 ea Warfarin Sodium (Coumadin) 1 mg PO MoFr@1600 [facility] Stop: 08/15/19 15:59 Last Admin: 02/16/19 16:58 Dose: 1 mg Warfarin Sodium (Coumadin) 1.5 mg PO [id number]@1600 [facility] Stop: 08/14/19 17:59 Last Admin: 02/15/19 18:21 Dose: 1.5 mg Discontinued Medications Sodium Chloride (Ns) 500 mls @ 0 mls/hr IV ONCE ONE PRN Reason: Wide Open Stop: 02/15/19 06:58 Last Admin: 02/15/19 07:17 Dose: 500 mls Levofloxacin/Dextrose (Levaquin 750 Mg (Premix)) 150 mls @ 100 mls/hr IV EDNOW ONE PRN Reason: Protocol Stop: 02/15/19 08:33 Last Admin: 02/15/19 07:17 Dose: 150 mls Point of Care Test Results: Chemistry 02/15/19 02/15/19 02/15/19 17:47 13:26 06:49 POC Glucose 173 mg/dL H mg/dL 134 mg/dL H mg/dL (70-100) (70-100) POC Troponin I 0.15 ng/mL H ng/mL (0.00-0.08) Departure - Departure Disposition: [facility] Acute Clinical Impression: TONYA (acute kidney injury), Dehydration, Bradycardia UTI (urinary tract infection) Qualifiers: Urinary tract infection type: acute cystitis Hematuria presence: with hematuria Qualified Code(s): N30.01 - Acute cystitis with hematuria Altered mental status Qualifiers: Altered mental status type: delirium Qualified Code(s): R41.0 - Disorientation , unspecified Condition: Fair
[2019-02-15 06:26] LABS: PLATELET COUNT 268 10^3/uL (150-400)
[2019-02-15] MEDS ORDERED: NS 500 ML IV ONE (06:57)
[2019-02-15 07:21] LABS: INR 2.29 (0.83-1.16); PROTIME(PATIENT) 24.1 SEC (12.0-15.0)
[2019-02-15] MEDS ORDERED: ONDANSETRON 4 MG/2 ML VIAL IVP PRN (08:13)
[2019-02-15] MEDS ORDERED: ONDANSETRON DISINTEGRATING 4 MG TAB PO PRN (08:13)
[2019-02-15] MEDS ORDERED: ACETAMINOPHEN 325 MG TAB PO PRN (08:13)
[2019-02-15] MEDS ORDERED: NS 1,000 ML IV SCH (08:15)
[2019-02-15] MEDS ORDERED: D50W 25 GM/50 ML SYR IVP PRN (08:21)
--- NOTE | 2019-02-15 14:54 | ASMTLACE ---
GRUPO Comorbidities - select Answers: Chronic pulmonary disease all that apply Coronary Artery Disease Diabetes (uncontrolled or controlled) Moderate or severe liver or renal disease Opioid dependence / Chronic pain Other Notes: AFib; Hypoxic respirato ry failure # of Emergency department Answers: 1-2 visits in the last 6 months Score: 15 Date Signed: 02/15/2019 02:53 PM Electronically Signed By:Mandi Blunt
[2019-02-15] MEDS: INSULIN LISPRO 100 UNIT/ML SC SCH ×2 (15:48→18:21)
--- NOTE | 2019-02-15 17:36 | PDGENHP ---
History and Physical - Chief Complaint Confusion - History of Present Illness Mark Ochoa is a 83 yo M with a PMhx of Severe with recent TAVR on 01/18, CABG, CKD, COPD, NAIF, DM, A FIb on Coumadin who presents to [facility] for confusion. Patient reports he was recently discharged from rehab facility and has had some intermittent confusion since. He denies any chest pain, SOB, dysuria, palpitations, d/c, n/v, f/c. He does report some LE Edema but is unsure if this has increased or decreased recently. History Information - Allergies/Home Medication List Allergies/Adverse Reactions: cephalexin [Cephalexin] Allergy (Severe, Verified 02/15/19 06:27) Hives Home Medications: Cholecalciferol Vit D3 [Vitamin D3 (*)] 2,000 units PO DAILY 02/20/14 [Last Taken 02/14/19] Latanoprost 0.005% [Xalatan 0.005% (*)] 1 drops EACHEYE HS 01/15/15 [Last Taken 02/13/19] Calcitriol [Calcitriol (*)] 0.25 mcg PO MOFR 02/06/18 [Last Taken 02/12/19] Atorvastatin Calcium [Lipitor 10 mg (*)] 10 mg PO HS 01/09/19 [Last Taken ] C/E/Zn/Cu/OM3/DHA/EPA/LUT/ZEAX [Preservision Areds 2 Softgel] 2 each PO BID 10/18 [Last Taken 02/14/19 09:00] Herbals/Supplements -Info Only 1 ea PO DAILY 01/09/19 [Last Taken Unknown] Melatonin [Melatonin 3 MG (*)] 3 mg PO HS 01/09/19 [Last Taken 02/13/19] Polyethylene Glycol 3350 [Miralax 17 gm (*)] 17 gm PO DAILY PRN #0 01/09/19 [ Last Taken Unknown] Psyllium Husk/Aspartame [Metamucil Fiber Singles Packet] 3.4 gm PO DAILY PRN 10/18 [Last Taken Unknown] Sodium Bicarbonate [Na Bicarb] 650 mg PO QID 01/09/19 [Last Taken 02/14/19] Solifenacin Succinate [Vesicare] 10 mg PO DAILY 01/09/19 [Last Taken 02/14/19] Timolol 0.5% [TIMOPTIC 0.5% (*)] 1 drops EACHEYE BID 01/09/19 [Last Taken ] Tiotropium Inhaler [Spiriva Handihaler] 18 mcg IH DAILY 01/09/19 [Last Taken ] Warfarin Sodium [Coumadin 1MG (*)] 1 mg PO MOFR 01/09/19 [Last Taken 02/12/19] Aspirin [Aspirin 81mg (*)] 81 mg PO DAILY 02/15/19 [Last Taken 02/14/19] Cyanocobalamin [Vitamin B12 (*)] 1,000 mcg PO DAILY 02/15/19 [Last Taken ] Sennosides/Docusate Sodium [Senokot-S] 1 tab PO BID PRN 02/15/19 [Last Taken Unknown] Vitamin B Complex [Vitamin B Complex (OTC)] 1 each PO DAILY 02/15/19 [Last Taken 02/14/19] Warfarin Sodium [Coumadin 1MG (*)] 1.5 mg PO SUTUWETHSA 02/15/19 [Last Taken ] amLODIPine BESYLATE [Norvasc 2.5 mg (*)] 2.5 mg PO DAILY 02/15/19 [Last Taken ] glipiZIDE XL [Glucotrol Xl] 5 mg PO DAILY 02/15/19 [Last Taken 02/14/19] traMADol [Ultram 50 mg (*)] 50 mg PO Q6HRS PRN 02/15/19 [Last Taken Unknown] I have personally reviewed and updated: family history, medical history, social history, surgical history - Past Medical History atrial fibrillation, coronary artery disease, CHF, COPD, diabetes type 2, hypertension, hyperlipidemia, pneumonia Additional medical history: sudden cardiac . sleep apnea (with CPAP) and renal insufficiency - Surgical History Reports: pacemaker/AICD Additional surgical history: bilateral TKA - Family History Positive for: non-pertinent - Social History Smoking Status: Never smoked Review of Systems Review of Systems: ROS: 10pt was reviewed & negative except for what was stated in HPI & below Physical Exam Physical Exam: Temp Pulse Resp BP Pulse Ox 37.3 C 53 L 25 H 157/55 H 93 02/15/19 15:29 04/18/19 15:29 02/15/19 15:29 02/15/19 15:29 02/15/19 15:29 O2 (L/minute) 3 Constitutional: chronically ill appearing Eyes: PERRL Ears, Nose, Mouth, Throat: dry mucous membranes Cardiovascular: systolic murmur, edema Respiratory: no respiratory distress, reduced air movement Gastrointestinal: soft, non-tender abdomen Genitourinary: no bladder tenderness, No anthony in urethra Skin: warm Musculoskeletal: generalized weakness Neurologic: No AAOx3 Psychiatric: interacting appropriately Lab Data & Imaging Review 02/15/19 06:10 02/15/19 06:10 WBC 11.23 10^3/uL (3.80-9.50) H 02/15/19 06:10 RBC 3.64 10^6/uL (4.40-6.38) L 02/15/19 06:10 Hgb 10.5 g/dL (13.7-17.5) L 02/15/19 06:10 Hct 33.1 % (40.0-51.0) L 02/15/19 06:10 MCV 90.9 fL (81.5-99.8) 02/15/19 06:10 MCH 28.8 pg (27.9-34.1) 02/15/19 06:10 MCHC 31.7 g/dL (32.4-36.7) L 02/15/19 06:10 RDW 16.0 % (11.5-15.2) H 02/15/19 06:10 Plt Count 268 10^3/uL (150-400) 02/15/19 06:10 MPV 11.1 fL (8.7-11.7) 02/15/19 06:10 Neut % (Auto) 78.7 % (39.3-74.2) H 02/15/19 06:10 Lymph % (Auto) 5.9 % (15.0-45.0) L 02/15/19 06:10 [place] % (Auto) 7.4 % (4.5-13.0) 02/15/19 06:10 Eos % (Auto) 7.1 % (0.6-7.6) 02/15/19 06:10 Baso % (Auto) 0.5 % (0.3-1.7) 02/15/19 06:10 Nucleat RBC Rel Count 0.0 % (0.0-0.2) 02/15/19 06:10 Absolute Neuts (auto) 8.84 10^3/uL (1.70-6.50) H 02/15/19 06:10 Absolute Lymphs (auto) 0.66 10^3/uL (1.00-3.00) L 02/15/19 06:10 Absolute Monos (auto) 0.83 10^3/uL (0.30-0.80) H 02/15/19 06:10 Absolute Eos (auto) 0.80 10^3/uL (0.03-0.40) H 02/15/19 06:10 Absolute Basos (auto) 0.06 10^3/uL (0.02-0.10) 02/15/19 06:10 Absolute Nucleated RBC 0.00 10^3/uL (0-0.01) 02/15/19 06:10 Immature Gran % 0.4 % (0.0-1.1) 02/15/19 06:10 Immature Gran # 0.04 10^3/uL (0.00-0.10) 02/15/19 06:10 PT 24.1 SEC (12.0-15.0) H 02/15/19 06:10 INR 2.29 (0.83-1.16) H 02/15/19 06:10 APTT 48.4 SEC (23.0-38.0) H 02/15/19 06:10 Sodium 133 mEq/L (135-145) L 02/15/19 06:10 Potassium 5.0 mEq/L (3.5-5.2) 02/15/19 06:10 Chloride 98 mEq/L (97-110) 02/15/19 06:10 Carbon Dioxide 20 mEq/l (22-31) L 02/15/19 06:10 Anion Gap 15 mEq/L (6-14) H 02/15/19 06:10 BUN 60 mg/dL (7-23) H 02/15/19 06:10 Creatinine 2.4 mg/dL (0.7-1.3) H 02/15/19 06:10 Estimated GFR 26 02/15/19 06:10 Glucose 136 mg/dL (70-100) H 02/15/19 06:10 POC Glucose 134 mg/dL (70-100) H 02/15/19 13:26 Calcium 8.9 mg/dL (8.5-10.4) 02/15/19 06:10 POC Troponin I 0.15 ng/mL (0.00-0.08) H 02/15/19 06:49 Troponin I 0.170 ng/mL (0.000-0.034) H 02/15/19 13:25 Urine Color YELLOW 02/15/19 06:20 Urine Appearance MODERATELY TURBID 02/15/19 06:20 Urine pH 6.0 (5.0-7.5) 02/15/19 06:20 Ur Specific [place] 1.011 (1.002-1.030) 02/15/19 06:20 Urine Protein 1+ (NEGATIVE) H 02/15/19 06:20 Urine Ketones NEGATIVE (NEGATIVE) 02/15/19 06:20 Urine Blood NEGATIVE (NEGATIVE) 02/15/19 06:20 Urine Nitrate NEGATIVE (NEGATIVE) 02/15/19 06:20 Urine Bilirubin NEGATIVE (NEGATIVE) 02/15/19 06:20 Urine Urobilinogen NEGATIVE EU (0.2-1.0) 02/15/19 06:20 Ur Leukocyte Esterase 3+ (NEGATIVE) H 02/15/19 06:20 Urine RBC 10-15 /hpf (0-3) H 02/15/19 06:20 Urine WBC 50-182 /hpf (0-3) H 02/15/19 06:20 Ur Epithelial Cells NONE SEEN /lpf (NONE-1+) 02/15/19 06:20 Urine Glucose NEGATIVE (NEGATIVE) 02/15/19 06:20 Assessment & Plan Assessment: UTI (urinary tract infection) (Acute) - Pt presenting with confusion, denies urinary symptoms - UA on admission positive for 3+ LE, 50-182 WBC - S/p Levaquin in ED, will continue for now (hx of allergies to Cephalosporins) - Urine culture pending - WBC 11.2 on admission, does not meet SIRS criteria currently, afebrile, no tachycardia present TONYA (acute kidney injury)(Acute) - In setting of known CKD - BUN/Cr 60/2.4 on admission (baseline 1.8-2.0) - In setting of recent decreased PO intake - Pt also with hx of recent TAVR, diastolic dysfunction present on TTE - Will give gentle hydration overnight - If no improvement in Cr in the AM, may be cardiorenal syndrome in which case patient would require diuresis - Holding Lasix 40 mg qd for now - Continue to monitor BMP, I/O, avoid nephrotoxic agents Altered mental status (Acute) - In setting of UTI, management as above - If no improvement on abx will look for other etiology Bradycardia (Acute) - Hx of A Fib on Coreg - Continue to monitor on telemetry Dehydration (Acute) - IVF as above in setting of UTI T2DM - Will hold home Glipizide for now - SSI ordered A Fib - Bradycardic as above - Continue home coreg, coumadin, INR therapeutic on admission Elevated Troponin - Trop 0.15 on admission, no complaints of chest pain - In setting of recent TAVR - EKG with no acute ischemic changes - Continue to trend overnight - Cardiology, Dr. Garcia, consulted in ED, f/u rec Hyponatremia - Na 133 on admission - In setting of decreased PO intake - IVF as above - Repeat Na in the AM FEN: IVF, Cardiac diet Code: FULL DVT PPx: Lovenox Dispo: Admit to Medicine
[2019-02-15] MEDS ORDERED: SENNOSIDES/DOCUSATE SODIUM TAB PO PRN (17:54)
[2019-02-15] MEDS ORDERED: POLYETHYLENE GLYCOL 3350 17 GM PKT PO PRN (17:54)
[2019-02-15] MEDS: CARVEDILOL 6.25 MG TAB PO SCH (18:20)
[2019-02-15] MEDS: WARFARIN SODIUM 1 MG TAB PO SCH (18:21)
[2019-02-15] MEDS: ATORVASTATIN CALCIUM 10 MG TAB PO SCH (22:28)
[2019-02-15] MEDS: MELATONIN 3 MG TAB PO SCH (22:28)
[2019-02-15] MEDS: PRESERVISION AREDS2 FORMULA EYE VIT 1 EACH PO SCH (22:28)
[2019-02-15] MEDS: SODIUM BICARBONATE 650 MG TAB PO SCH (22:28)
[2019-02-15] MEDS: Brinzolamide 1% 10 ml OPHT.BTL EACHEYE SCH (23:00)
[2019-02-15] MEDS: TIMOLOL 0.5% 15 ML OPHT.BTL EACHEYE SCH (23:00)
[2019-02-15] MEDS: LATANOPROST 0.005% 2.5 ML OPHT DROPS EACHEYE SCH (23:01)
[2019-02-16] MEDS: SODIUM BICARBONATE 650 MG TAB PO SCH ×4 (05:28→21:00)
[2019-02-16 06:03] LABS: PLATELET COUNT 199 10^3/uL (150-400)
--- NOTE | 2019-02-16 07:46 | CPEKG ---
Test Reason : OPEN Blood Pressure : / mmHG Vent. Rate : 046 BPM Atrial Rate : 000 BPM P-R Int : 082 ms QRS Dur : 156 ms QT Int : 546 ms P-R-T Axes : 000 -18 078 degrees QTc Int : 478 ms Atrial fibrillation IVCD, consider atypical LBBB Confirmed by Sergio Antunez ([id number]) on 02/16/2019 7:45:56 AM Referred By: Sergio Antunez Confirmed By:Sergio Antunez
[2019-02-16] MEDS ORDERED: PSYLLIUM METAMUCIL 1 PKT PO PRN (09:00)
[2019-02-16 10:15] LABS: INR 2.58 (0.83-1.16); PROTIME(PATIENT) 26.4 SEC (12.0-15.0)
[2019-02-16] MEDS: TIOTROPIUM INHALER 18 MCG/DOSE 5 DOSE/MDI IH SCH (10:23)
[2019-02-16] MEDS: CARVEDILOL 6.25 MG TAB PO SCH ×2 (10:49→17:01)
[2019-02-16] MEDS: PRESERVISION AREDS2 FORMULA EYE VIT 1 EACH PO SCH ×2 (10:49→21:00)
[2019-02-16] MEDS: SOLIFENACIN SUCCINATE 5 MG TAB PO SCH (10:50)
[2019-02-16] MEDS: PANTOPRAZOLE SODIUM 40 MG TAB PO SCH (10:51)
[2019-02-16] MEDS: ASPIRIN 81 MG CHEWABLE TAB PO SCH (10:51)
[2019-02-16] MEDS: VITAMIN B COMPLEX 1 EA CAP/TAB PO SCH (10:51)
[2019-02-16] MEDS: INSULIN LISPRO 100 UNIT/ML SC SCH ×3 (10:52→18:31)
[2019-02-16] MEDS: Brinzolamide 1% 10 ml OPHT.BTL EACHEYE SCH ×2 (10:56→21:01)
[2019-02-16] MEDS: TIMOLOL 0.5% 15 ML OPHT.BTL EACHEYE SCH ×2 (10:58→21:01)
--- NOTE | 2019-02-16 14:49 | HOSPPROG ---
Hospitalist Progress Note Assessment/Plan: UTI (urinary tract infection) (Acute) - Pt presenting with confusion, denies urinary symptoms - UA on admission positive for 3+ LE, 50-182 WBC - S/p Levaquin in ED, will continue for now (hx of allergies to Cephalosporins) - Urine and blood cultures pending - WBC 11.2 on admission, decreased to 7.5 this AM, febrile overnight TONYA (acute kidney injury)(Acute) - In setting of known CKD - BUN/Cr 60/2.4 on admission (baseline 1.8-2.0), repeat 51/2.2 this AM s/p IVF overnight - In setting of recent decreased PO intake - Pt also with hx of recent TAVR, diastolic dysfunction present on TTE - Continue holding Lasix 40 mg qd for now, cardiology consulted this AM, f/u recs regarding diuretics - Continue to monitor BMP, I/O, avoid nephrotoxic agents Elevated Troponin - Trop 0.15 on admission, no complaints of chest pain - Increased overnight 0.399->0.353 this AM - In setting of recent TAVR - EKG with no acute ischemic changes - Cardiology consulted, will f/u for recs on ischemic eval - TTE pending to evaluate for RWMA dCHF - TTE from 01/19/19 showing diastolic dysfunction - CXR on admission showing mild interstitial edema, although appears dry otherwise - S/p IVF overnight with mild improvement in Cr - Cardiology consulted as above - Continue home Coreg - Will repeat CXR in the AM s/p TAVR - TTE was scheduled as OP for today, will order Altered mental status (Acute) - Resolved - In setting of UTI, management as above Bradycardia (Acute) - Hx of A Fib on Coreg - Continue to monitor on telemetry Dehydration (Acute) - IVF as above in setting of UTI T2DM - Will hold home Glipizide for now - SSI ordered A Fib - Bradycardic as above - Continue home coreg, coumadin, INR therapeutic on admission Hyponatremia - Na 133 on admission - In setting of decreased PO intake - IVF as above - Continue to monitor FEN: IVF, Cardiac diet Code: FULL DVT PPx: Lovenox Dispo: Pending clinical course Subjective: Pt reports no complaints this AM, eating breakfast Objective: Vital Signs Temp Pulse Resp BP Pulse Ox 36.8 C 45 L 18 123/56 H 97 02/16/19 08:01 02/16/19 10:49 02/16/19 10:25 02/16/19 08:01 02/16/19 10:25 Laboratory Results 02/16/19 05:24 02/16/19 05:24 02/15/19 02/16/19 02/17/19 05:59 05:59 05:59 Intake Total 600 Output Total 1000 Balance -400 PT 26.4 SEC (12.0-15.0) H 02/16/19 09:45 INR 2.58 (0.83-1.16) H 02/16/19 09:45 - Physical Exam Constitutional: chronically ill appearing Eyes: PERRL Ears, Nose, Mouth, Throat: moist mucous membranes Cardiovascular: irregularly irregular Respiratory: no respiratory distress, reduced air movement Gastrointestinal: soft, non-tender abdomen Skin: warm Musculoskeletal: generalized weakness Neurologic: AAOx3 Psychiatric: interacting appropriately ICD10 Worksheet Patient Problems: Problems Problem Status Onset TONYA (acute kidney injury) Acute Altered mental status Acute Bradycardia Acute Dehydration Acute UTI (urinary tract infection) Acute Afib Acute CHF (congestive heart failure) Acute Chronic Disease [facility] Acute Hip osteoarthritis Acute Influenza Acute Pneumonia Acute Pulmonary hypertension due to left heart disease Acute Pulmonary hypertension due to left heart disease Acute Pulmonary hypertension due to left heart valvular disease Acute Pulmonary hypertension due to left heart valvular disease Acute
--- NOTE | 2019-02-16 15:53 | ASMTCMCOM ---
CM Note CM Note Notes: 02/16/2019 Case Management Note Discussed pt during rounds. Pt admitted for confusion, elevated trop, and CKD. History of TAVR in December 2018. Met w/pt to discuss d/c plans. Pt lives with Barbara [phone]. Son Angela [phone] is local. At pt request called son to discuss d/c plan. Pt has recent d/c from [facility]. At karley Miller's request faxed referral to [facility]. Upon d/c from [facility], [facility] visited pt one time at home. Pt and karley Miller happy with services. Faxed referral to [facility]. Case Management d/c poc: [facility] vs [facility]. Case Management to follow. Date Signed: 02/16/2019 03:53 PM Electronically Signed By:Gita Muñiz RN
[2019-02-16] MEDS ORDERED: WARFARIN SODIUM 1 MG TAB PO SCH (16:00)
--- NOTE | 2019-02-16 17:22 | ECHO ---
[email or web address] [address] [address] Main: [phone] Echocardiography Examination Transthoracic Name: Mark BYRD MR#: [id number] Study Date: 02/16/2019 Study Time: 11:49 AM Date of : 1935 Age: 83 year(s) Height: 170.2 cm (67 in.) Weight: 84.37 kg (186 lb.) BSA: 1.96 m2 Gender: Male Examination: Echo Contrast: Image Quality: Adequate Rhythm: Pacemaker rhythm Heart Rate: 46 bpm BP: 123 mmHg/56 mmHg Indication: CHF, s/p TAVR Procedure Staff Referring Physician: Ticket Seller: Stefanie Mendieta [facility] Reading Physician: Polo Glasgow MD Requesting Provider: Ordering Physician: Perry Gonzalez Indication: CHF, s/p TAVR Measurements Chambers AV/MV Label Value Normal Value Label Value Normal Value LVOT Vmax 0.85 m/s (0.7m/s - 1.1m/s) AV PGmax 12 mmHg LVOT VTI 20 cm (18cm - 22cm) AV PGmean 7 mmHg LVDd, 2D 4.5 cm (4.2cm - 5.9cm) AV Vmax 1.74 m/s LVDs, 2D 2.7 cm (2.1cm - 4cm) MV E Vmax 1.31 m/s IVSd, 2D 1.1 cm (0.6cm - 1.1cm) MV DT 256 ms LVPWd, 2D 1.1 cm (0.6cm - 1cm) MV VTI 39.9 cm LVEF, BP 68 % (55% - 70%) MV PGmax 7 mmHg LVEF, 2D 70 % (54% - 74%) MV PGmean 1 mmHg LVOT PGmean 2 mmHg TV/PV LVOT Vmean 0.61 m/s Label Value Normal Value RVDd, 2D 4.6 cm (1.9cm - 3.8cm) RA Pressure 15 mmHg TAPSE 2.6 cm RVSP 50 mmHg LA Volume, BP 103 ml (18ml - 58ml) TR Pmax 35 mmHg LADs, 2D 4.7 cm (3cm - 4cm) TR Vmax 2.96 m/s LAESV index, BP 52.6 ml/m2 PV PGmax 5 mmHg RA Area 28.3 cm2 PV Vmax, Caliper 1.08 m/s (0.6m/s - 0.9m/s) Additional Vessels Label Value Normal Value AoAsc 2.8 cm Patient: aMrk BYRD Study Date: 02/16/2019 Page 1 of 3 11:49 AM AoRoot, MM 2.4 cm (2.2cm - 3.7cm) Conclusions Left Ventricle: Left ventricle is normal in size. EF range is estimated at 65 % - 70 %. Right Ventricle: Mildly dilated right ventricle. Right Atrium: The right atrium is severely dilated. Mitral Valve: Mild to moderate mitral regurgitation. Aortic Valve: No aortic valve regurgitation. There is no aortic stenosis. Post TAVR. Aortic Valve Measurements AV Vmax is 1.74 m/s. AV PGmax is 12 mmHg. AV PGmean is 7 mmHg. Tricuspid Valve: Pulmonary artery pressure moderately increased. IVC: The inferior vena cava is dilated. Findings Left Ventricle: Left ventricle is normal in size. Normal global systolic left ventricular function. EF evaluated by EF (biplane Alvarez's). The ejection fraction, measured by Simpsons method, is 68 %. EF range is estimated at 65 % - 70 %. There is mild concentric left ventricular hypertrophy. There are no regional wall motion abnormalities. Unable to assess Diastolic Dysfunction due to atrial fibrillation/a flutter. Right Ventricle: Mildly dilated right ventricle. Right ventricular systolic function is normal. There is a pacing/ICD wire present in the right ventricle. Left Atrium: The left atrium is severely dilated. Right Atrium: The right atrium is severely dilated. A line (catheter or pacing wire) is present in the right atrium. Mitral Valve: Mild to moderate mitral regurgitation. No mitral valve stenosis. There is calcification of the mitral anterior and posterior leaflets . There is moderate mitral thickening. There is mitral annular calcification. Aortic Valve: No aortic valve regurgitation. There is no aortic stenosis. Post TAVR. Aortic Valve Measurements AV Vmax is 1.74 m/s. AV PGmax is 12 mmHg. AV PGmean is 7 mmHg. Patient: Mark BYRD Study Date: 02/16/2019 Page 2 of 3 11:49 AM Tricuspid Valve: Tricuspid valve leaflets are structurally normal. No tricuspid valve stenosis. Right Ventricular systolic pressure is measured at 50 mmHg. Pulmonary artery pressure moderately increased. Pulmonic Valve: Pulmonic leaflets are structurally normal. Trivial pulmonic valve regurgitation is present. Aorta: The aortic root size in M-mode measures 2.4 cm. The aortic root exhibits normal size. The ascending aorta measures 2.8 cm. Ascending aorta is normal in size. Aorta Measurements AoRoot, MM is 2.4 cm. IVC: The inferior vena cava is dilated. There is no inspiratory collapse of the IVC. Pericardium: No pericardial effusion. Exam Details Procedure Ordered: Echo Procedure Status: Routine study Image Quality: Adequate Facility Location: Cardiac Echo 1 (No Signature Object) Patient: Mark BYRD Study Date: 02/16/2019 Page 3 of 3 11:49 AM [id number]
--- NOTE | 2019-02-16 17:47 | PDMN ---
Medical Necessity Medical necessity: Change to IP, as of 02/15/19, per MD & MCG M-300; los >2 mn for ongoing management of UTI w/confusion, bradycardia, elevated troponin & TONYA ; requiring further workup/monitoring & Cardiology consult; comorbid advanced age, recent TAVR
[2019-02-16] MEDS: MELATONIN 3 MG TAB PO SCH (21:00)
[2019-02-16] MEDS: ATORVASTATIN CALCIUM 10 MG TAB PO SCH (21:00)
[2019-02-16] MEDS: LATANOPROST 0.005% 2.5 ML OPHT DROPS EACHEYE SCH (21:58)
[2019-02-17 04:27] LABS: PLATELET COUNT 206 10^3/uL (150-400)
[2019-02-17 04:40] LABS: INR 2.62 (0.83-1.16); PROTIME(PATIENT) 26.7 SEC (12.0-15.0)
[2019-02-17] MEDS: SODIUM BICARBONATE 650 MG TAB PO SCH ×4 (09:13→20:41)
[2019-02-17] MEDS: CARVEDILOL 6.25 MG TAB PO SCH ×2 (09:14→17:41)
[2019-02-17] MEDS: PANTOPRAZOLE SODIUM 40 MG TAB PO SCH (09:14)
[2019-02-17] MEDS: ASPIRIN 81 MG CHEWABLE TAB PO SCH (09:14)
[2019-02-17] MEDS: PRESERVISION AREDS2 FORMULA EYE VIT 1 EACH PO SCH ×2 (09:14→20:41)
[2019-02-17] MEDS: SOLIFENACIN SUCCINATE 5 MG TAB PO SCH (09:14)
[2019-02-17] MEDS: FUROSEMIDE 40 MG TAB PO SCH (09:14)
[2019-02-17] MEDS: VITAMIN B COMPLEX 1 EA CAP/TAB PO SCH (09:14)
[2019-02-17] MEDS: INSULIN LISPRO 100 UNIT/ML SC SCH ×3 (09:15→17:41)
[2019-02-17] MEDS: Brinzolamide 1% 10 ml OPHT.BTL EACHEYE SCH ×2 (09:21→20:42)
[2019-02-17] MEDS: TIMOLOL 0.5% 15 ML OPHT.BTL EACHEYE SCH ×2 (09:21→20:43)
--- NOTE | 2019-02-17 10:33 | PDCARPN ---
Cardiology Progress Note Assessment/Plan: Assessment/plan: 83 yo M with valvular heart disease s/p TAVR ([employer] Evolut R 34) on 01/18/2019. 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 He has nonflow limiting CAD based on angiogram in 12/2018. Other hx includes permanent AF, out of hospital arrest with ICD, CKD, NAIF, DM. Admitted 02/15 after recent rehab stay with confusion, per his family. Found to have Klebsiella UTI and now worsening anemia. Asked to comment on his trop of 0.4 which has improved to 0.2 1. Positive troponin: recent cath with nonobstructive CAD. Echo this admission (personally reviewed) shows normal EF and normal wall motion as well as normal TAVR function. Not ACS, but rather combination of anemia, worsening renal function. Continue med management with ASA, statin, BB. 2. Valvular heart disease: recent TAVR. Normal TAVR function on echo this admission 3. Hx of HFpEF: fairly euvolemic here. Resume outpatient lasix. Continue BP mx 4. UTI: on levoflox per IM 5. Permanent AF: slow V rate/pacing. May need to increase back up pacer rate. Has been on coumadin for CHADS2-VASC score of 5. 6. Anemia: worsening this admission. No active bleeding. Will order FOBT and iron studies. COumadin on hold 7. Hx cardiac arrest with ICD: may need increased V pacing 8. DM; per IM 9 PHTN; multifactorial. Lasix 10. Confusion: does seem slightly off his baseline. May be related to multiple recent hospitalizations and UTI. Follow 02/17/19 10:57 Subjective: Denies SOB or CP. Reports that LE edema is stable to improved. Denies hematuria, rectal bleeding, melena or hematemesis Reviewed/Discussed With: hospitalist Time Spent with Patient: greater than 25 minutes Time Spent with Patient: Greater than 25 minutes spent on this patients care, greater than 50% of time spent counseling, educating, and coordinating care regarding the above mentioned plan. Objective: Vital Signs (8 Hrs) Temp Pulse Resp BP Pulse Ox 02/17/19 09:14 43 L 02/17/19 07:37 37.3 C 43 L 16 113/48 L 94 02/17/19 04:00 36.6 C 47 L 20 125/58 H 96 Intake/Output (24 Hrs) 02/16/19 02/17/19 02/18/19 05:59 05:59 05:59 Intake Total 600 1440 Output Total 1000 250 Balance -400 1190 Intake: Oral (ml) 600 1440 Output: Urine (ml) 1000 250 Bedside Commode 250 Urinal 1000 Other: Intake Quantity Yes Sufficient Number of Voids Urinal 2 Number of Stools Bedside Commode 1 NAD. Cannot articulate exact reason for admission JVP 10 Regular bradycardia soft holosystolic murmur LLSB Minimal bibasilar rales that clear with cough Trace bilateral ant tib edema. Chronic venous stasis BLE Result Diagrams: 02/17/19 03:22 02/17/19 03:22 Cardiac Labs: Cardiac Lab Results (72 Hrs) 02/17/19 02/16/19 02/15/19 03:22 05:24 23:30 Troponin I 0.195 H 0.353 H 0.399 H EKG: AF with V pacing Telemetry: AF with some V pacing Echocardiogram: Reviewed: normal LV systolic function. Normal wall motion. TAVR well seated with no AR and normal gradients. Mild to mod MR. Mild to mod TR. Estimated PASP is 50 ICD10 Worksheet Patient Problems: Problems Problem Status Onset TONYA (acute kidney injury) Acute Altered mental status Acute Bradycardia Acute Dehydration Acute UTI (urinary tract infection) Acute Afib Acute CHF (congestive heart failure) Acute Chronic Disease [facility] Acute Hip osteoarthritis Acute Influenza Acute Pneumonia Acute Pulmonary hypertension due to left heart disease Acute Pulmonary hypertension due to left heart disease Acute Pulmonary hypertension due to left heart valvular disease Acute Pulmonary hypertension due to left heart valvular disease Acute
[2019-02-17] MEDS: TIOTROPIUM INHALER 18 MCG/DOSE 5 DOSE/MDI IH SCH (10:54)
--- NOTE | 2019-02-17 14:53 | HOSPPROG ---
Hospitalist Progress Note Assessment/Plan: UTI (urinary tract infection) (Acute) - Pt presenting with confusion, denies urinary symptoms - UA on admission positive for 3+ LE, 50-182 WBC - S/p Levaquin in ED, will continue Day 01/04 (hx of allergies to Cephalosporins) - Urine cx growing Klebsiella, blood cultures NGTD - WBC 11.2 on admission, decreased to 7.5, afebrile overnight TONYA (acute kidney injury)(Acute) - In setting of known CKD - BUN/Cr 60/2.4 on admission (baseline 1.8-2.0), repeat 47/2.0 this AM - In setting of recent decreased PO intake - Pt also with hx of recent TAVR, diastolic dysfunction present on TTE - Restarting home diuretics as below - Continue to monitor BMP, I/O, avoid nephrotoxic agents Elevated Troponin - Trop 0.15 on admission, no complaints of chest pain - Increased overnight 0.399->0.353 ->0.195 this AM - In setting of recent TAVR - EKG with no acute ischemic changes - Cardiology consulted, report recent cath with nonobstructive CAD, they do not believe this indicated ACS, but rather combination of anemia, worsening renal function - Continue home ASA, statin, Coreg - TTE performed on 02/16 showing normal EF, no RWMA, as well as normal TAVR function dCHF - TTE from 01/19/19 showing diastolic dysfunction - CXR on admission showing mild interstitial edema, although appears dry otherwise - S/p IVF overnight on 02/16 with mild improvement in Cr - Cardiology recommends restarting home Lasix - Continue home Coreg Normocytic Anemia - Hgb decreased 10.5-> 8.0 this AM - No reported s/s of bleeding - Will check occult stool for blood and Fe studies - Consult GI if occult stool + - Continue to trend H/H, transfuse if <7/20 s/p TAVR - TTE on 02/16 showing normal TAVR function Altered mental status (Acute) - Improving - In setting of UTI, management as above Bradycardia (Acute) - Hx of A Fib on Coreg - Continue to monitor on telemetry Dehydration (Acute) - IVF as above in setting of UTI T2DM - Will hold home Glipizide for now - SSI ordered A Fib - Bradycardic as above, per cardiology "may need to increase back up pacer rate " - Continue home coreg, coumadin, INR therapeutic on admission Hyponatremia - Na 133 on admission - In setting of decreased PO intake - IVF as above - Continue to monitor FEN: IVF, Cardiac diet Code: FULL DVT PPx: Lovenox Dispo: Pending clinical course Objective: Vital Signs Temp Pulse Resp BP Pulse Ox 36.6 C 40 L 14 109/46 L 96 02/17/19 11:47 02/17/19 11:47 02/17/19 11:47 02/17/19 11:47 02/17/19 11:47 Laboratory Results 02/17/19 03:22 02/17/19 03:22 02/16/19 02/17/19 02/18/19 05:59 05:59 05:59 Intake Total 600 1440 Output Total 1000 250 Balance -400 1190 PT 26.7 SEC (12.0-15.0) H 02/17/19 03:22 INR 2.62 (0.83-1.16) H 02/17/19 03:22 ICD10 Worksheet Patient Problems: Problems Problem Status Onset TONYA (acute kidney injury) Acute Altered mental status Acute Bradycardia Acute Dehydration Acute UTI (urinary tract infection) Acute Afib Acute CHF (congestive heart failure) Acute Chronic Disease [facility] Acute Hip osteoarthritis Acute Influenza Acute Pneumonia Acute Pulmonary hypertension due to left heart disease Acute Pulmonary hypertension due to left heart disease Acute Pulmonary hypertension due to left heart valvular disease Acute Pulmonary hypertension due to left heart valvular disease Acute
[2019-02-17] MEDS: WARFARIN SODIUM 1 MG TAB PO SCH ×2 (18:34→19:44)
[2019-02-17] MEDS: ATORVASTATIN CALCIUM 10 MG TAB PO SCH (20:41)
[2019-02-17] MEDS: MELATONIN 3 MG TAB PO SCH (20:41)
[2019-02-17] MEDS: LATANOPROST 0.005% 2.5 ML OPHT DROPS EACHEYE SCH (22:16)
[2019-02-18 04:33] LABS: PLATELET COUNT 233 10^3/uL (150-400)
[2019-02-18 04:54] LABS: INR 2.75 (0.83-1.16); PROTIME(PATIENT) 27.7 SEC (12.0-15.0)
[2019-02-18] MEDS: SODIUM BICARBONATE 650 MG TAB PO SCH ×4 (04:58→21:02)
[2019-02-18] MEDS: TIOTROPIUM INHALER 18 MCG/DOSE 5 DOSE/MDI IH SCH (07:56)
[2019-02-18] MEDS: PRESERVISION AREDS2 FORMULA EYE VIT 1 EACH PO SCH ×2 (09:40→21:02)
[2019-02-18] MEDS: SOLIFENACIN SUCCINATE 5 MG TAB PO SCH (09:40)
[2019-02-18] MEDS: PANTOPRAZOLE SODIUM 40 MG TAB PO SCH (09:40)
[2019-02-18] MEDS: CARVEDILOL 6.25 MG TAB PO SCH ×2 (09:40→18:28)
[2019-02-18] MEDS: ASPIRIN 81 MG CHEWABLE TAB PO SCH (09:40)
[2019-02-18] MEDS: FUROSEMIDE 40 MG TAB PO SCH (09:40)
[2019-02-18] MEDS: VITAMIN B COMPLEX 1 EA CAP/TAB PO SCH (09:41)
[2019-02-18] MEDS: INSULIN LISPRO 100 UNIT/ML SC SCH ×3 (09:41→18:29)
[2019-02-18] MEDS: Brinzolamide 1% 10 ml OPHT.BTL EACHEYE SCH ×2 (09:42→20:58)
[2019-02-18] MEDS: TIMOLOL 0.5% 15 ML OPHT.BTL EACHEYE SCH ×2 (09:42→21:07)
[2019-02-18] MEDS ORDERED: MAGNESIUM HYDROXIDE 30 ML UDCUP PO PRN (11:10)
[2019-02-18] MEDS ORDERED: LACTULOSE 20 GM/30 ML UDCUP PO PRN (11:10)
[2019-02-18] MEDS ORDERED: BISACODYL 10 MG SUPP PR PRN (11:10)
--- NOTE | 2019-02-18 11:13 | HOSPPROG ---
Hospitalist Progress Note Assessment/Plan: UTI (urinary tract infection) (Acute) - Pt presenting with confusion, denies urinary symptoms - UA on admission positive for 3+ LE, 50-182 WBC - S/p Levaquin in ED, will continue Day 02/04 (hx of allergies to Cephalosporins) - Urine cx growing Klebsiella, blood cultures NGTD - WBC 11.2 on admission, decreased to 7.5, afebrile overnight TONYA (acute kidney injury)(Acute) - In setting of known CKD - BUN/Cr 60/2.4 on admission (baseline 1.8-2.0), repeat 43/2.0 this AM - In setting of recent decreased PO intake - Pt also with hx of recent TAVR, diastolic dysfunction present on TTE - Restarted home diuretics as below - Continue to monitor BMP, I/O, avoid nephrotoxic agents Elevated Troponin - Trop 0.15 on admission, no complaints of chest pain - Increased overnight 0.399->0.353 ->0.195 this AM - In setting of recent TAVR - EKG with no acute ischemic changes - Cardiology consulted, report recent cath with nonobstructive CAD, they do not believe this indicated ACS, but rather combination of anemia, worsening renal function - Continue home ASA, statin, Coreg - TTE performed on 02/16 showing normal EF, no RWMA, as well as normal TAVR function dCHF - TTE from 01/19/19 showing diastolic dysfunction - CXR on admission showing mild interstitial edema, although appears dry otherwise - S/p IVF overnight on 02/16 with mild improvement in Cr - Cardiology recommends restarting home Lasix 40 mg qd on 02/17 - Continue home Coreg Normocytic Anemia - Hgb decreased 10.5-> 8.0, stable at 8.0 this AM - No reported s/s of bleeding - Will check occult stool for blood - Fe studies indicating likely LLOYD as well as ACD - Will start Fe replacement - Consult GI if occult stool + - Continue to trend H/H, transfuse if <05/19 s/p TAVR - TTE on 02/16 showing normal TAVR function Altered mental status (Acute) - Improving - In setting of UTI, management as above Bradycardia (Acute) - Hx of A Fib on Coreg - Cardiology to further evaluate - Continue to monitor on telemetry Dehydration (Acute) - S/p IVF as above in setting of UTI T2DM - Will hold home Glipizide for now - SSI ordered A Fib - Bradycardic as above, per cardiology "may need to increase back up pacer rate " - Continue home coreg, coumadin, INR therapeutic on admission Hyponatremia - Na 133 on admission, 128 this AM after restarting home diuretics - Will continue to monitor, if not improving tomorrow will order urine studies FEN: IVF, Cardiac diet Code: FULL DVT PPx: Lovenox Dispo: Pending clinical course Subjective: Pt reports no complaints this AM Objective: Vital Signs Temp Pulse Resp BP Pulse Ox 36.9 C 42 L 16 149/63 H 100 02/18/19 07:45 02/18/19 09:40 02/18/19 07:59 02/18/19 07:45 02/18/19 07:59 Laboratory Results 02/18/19 03:20 02/18/19 03:20 02/17/19 02/18/19 02/19/19 05:59 05:59 05:59 Intake Total 1440 850 Output Total 250 Balance 1190 850 PT 27.7 SEC (12.0-15.0) H 02/18/19 03:20 INR 2.75 (0.83-1.16) H 02/18/19 03:20 - Physical Exam Constitutional: chronically ill appearing Eyes: PERRL Ears, Nose, Mouth, Throat: moist mucous membranes Cardiovascular: bradycardia Respiratory: no respiratory distress Gastrointestinal: soft, non-tender abdomen Skin: warm Neurologic: AAOx3 Psychiatric: flat affect ICD10 Worksheet Patient Problems: Problems Problem Status Onset TONYA (acute kidney injury) Acute Altered mental status Acute Bradycardia Acute Dehydration Acute UTI (urinary tract infection) Acute Afib Acute CHF (congestive heart failure) Acute Chronic Disease [facility] Acute Hip osteoarthritis Acute Influenza Acute Pneumonia Acute Pulmonary hypertension due to left heart disease Acute Pulmonary hypertension due to left heart disease Acute Pulmonary hypertension due to left heart valvular disease Acute Pulmonary hypertension due to left heart valvular disease Acute
--- NOTE | 2019-02-18 11:29 | PDCARPN ---
Cardiology Progress Note Assessment/Plan: Assessment/plan: 83 yo M with valvular heart disease s/p TAVR (Medtronic Evolut R 34) on 01/18/2019. 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 He has nonflow limiting CAD based on angiogram in 12/2018. Other hx includes permanent AF, out of hospital arrest with ICD, CKD, NAIF, DM. Admitted 02/15 after recent rehab stay with confusion, per his family. Found to have Klebsiella UTI and now worsening anemia. Asked to comment on his trop of 0.4 which has improved to 0.2 1. Positive troponin: recent cath with nonobstructive CAD. Echo this admission (personally reviewed) shows normal EF and normal wall motion as well as normal TAVR function. Not ACS, but rather combination of anemia, worsening renal function. Continue med management with ASA, statin, BB. 2. Valvular heart disease: recent TAVR. Normal TAVR function on echo this admission 3. Hx of HFpEF: fairly euvolemic here. Resumed outpatient lasix. Continue BP mx 4. UTI: on levoflox per IM 5. Permanent AF: slow V rate/pacing. May need to increase back up pacer rate. Will discuss with EP. Has been on coumadin for CHADS2-VASC score of 5. 6. Anemia: worsening this admission; Hct stable today. Lab evidence of iron deficiency. No active bleeding. FOBT pending. COumadin on hold 7. Hx cardiac arrest with ICD: No VT here. may need increased V pacing 8. DM; per IM 9 PHTN; multifactorial. Lasix 10. Confusion: does seem slightly off his baseline. May be related to multiple recent hospitalizations and UTI. Head CT results pending. 02/18/19 11:30 Subjective: Denies chest pain or dyspnea. Slept okay last night. Objective: Vital Signs (8 Hrs) Temp Pulse Resp BP Pulse Ox 02/18/19 09:40 42 L 02/18/19 07:59 53 L 16 100 02/18/19 07:45 36.9 C 47 L 18 149/63 H 98 02/18/19 02:50 36.6 C 47 L 12 138/69 H 99 Intake/Output (24 Hrs) 02/17/19 02/18/19 02/19/19 05:59 05:59 05:59 Intake Total 1440 850 Output Total 250 Balance 1190 850 Intake: Oral (ml) 1440 850 Output: Urine (ml) 250 Bedside Commode 250 Other: Intake Quantity Yes Sufficient Number of Voids Incontinence 1 Toilet 1 Number of Stools Bedside Commode 1 No acute distress. Appears frail. JVP less than 10. Regular rate and rhythm with holosystolic 2/6 murmur at the apex. No S3. Lungs clear bilaterally wheeze rhonchi rales Trace bilateral lower extremity edema. Chronic venous stasis. Result Diagrams: 02/18/19 03:20 02/18/19 03:20 Cardiac Labs: Cardiac Lab Results (72 Hrs) 02/17/19 02/16/19 02/15/19 03:22 05:24 23:30 Troponin I 0.195 H 0.353 H 0.399 H Telemetry: AFib with ventricular pacing. V rate 40s. ICD10 Worksheet Patient Problems: Problems Problem Status Onset TONYA (acute kidney injury) Acute Dehydration Acute Bradycardia Acute UTI (urinary tract infection) Acute Altered mental status Acute Pulmonary hypertension due to left heart disease Acute Pulmonary hypertension due to left heart disease Acute Pulmonary hypertension due to left heart valvular disease Acute Pulmonary hypertension due to left heart valvular disease Acute Pneumonia Acute Influenza Acute CHF (congestive heart failure) Acute Chronic Disease [facility] Acute Afib Acute Hip osteoarthritis Acute
[2019-02-18] MEDS: FERRO-SEQUELS 65 MG TAB.ER PO SCH (21:02)
[2019-02-18] MEDS: MELATONIN 3 MG TAB PO SCH (21:02)
[2019-02-18] MEDS: ATORVASTATIN CALCIUM 10 MG TAB PO SCH (21:02)
[2019-02-18] MEDS: LATANOPROST 0.005% 2.5 ML OPHT DROPS EACHEYE SCH (21:03)
[2019-02-19 04:28] LABS: INR 2.67 (0.83-1.16); PROTIME(PATIENT) 27.1 SEC (12.0-15.0)
[2019-02-19] MEDS: TIOTROPIUM INHALER 18 MCG/DOSE 5 DOSE/MDI IH SCH (09:58)
[2019-02-19] MEDS: FERRO-SEQUELS 65 MG TAB.ER PO SCH ×2 (10:00→20:02)
[2019-02-19] MEDS: VITAMIN B COMPLEX 1 EA CAP/TAB PO SCH (10:00)
[2019-02-19] MEDS: PRESERVISION AREDS2 FORMULA EYE VIT 1 EACH PO SCH ×2 (10:00→20:01)
[2019-02-19] MEDS: CARVEDILOL 6.25 MG TAB PO SCH ×2 (10:00→18:06)
[2019-02-19] MEDS: SOLIFENACIN SUCCINATE 5 MG TAB PO SCH (10:00)
[2019-02-19] MEDS: FUROSEMIDE 40 MG TAB PO SCH (10:00)
[2019-02-19] MEDS: INSULIN LISPRO 100 UNIT/ML SC SCH ×3 (10:01→18:07)
[2019-02-19] MEDS: PANTOPRAZOLE SODIUM 40 MG TAB PO SCH (10:01)
[2019-02-19] MEDS: ASPIRIN 81 MG CHEWABLE TAB PO SCH (10:01)
[2019-02-19] MEDS: SODIUM BICARBONATE 650 MG TAB PO SCH ×4 (10:04→20:01)
[2019-02-19] MEDS: Brinzolamide 1% 10 ml OPHT.BTL EACHEYE SCH ×2 (10:16→20:05)
[2019-02-19] MEDS: TIMOLOL 0.5% 15 ML OPHT.BTL EACHEYE SCH ×2 (10:16→20:05)
--- NOTE | 2019-02-19 13:31 | PDCARPN ---
Cardiology Progress Note Assessment/Plan: Assessment/plan: 83 yo M with valvular heart disease s/p TAVR (Medtronic Evolut R 34) on 01/18/2019. 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 He has nonflow limiting CAD based on angiogram in 12/2018. Other hx includes permanent AF, out of hospital arrest with ICD; CKD, NAIF, DM. Admitted 02/15 after recent rehab stay with confusion, per his family. Found to have Klebsiella UTI and worsening anemia. Asked to comment on his trop of 0.4 which has improved to 0.2 1. Positive troponin: recent cath with nonobstructive CAD. Echo this admission (personally reviewed) shows normal EF and normal wall motion as well as normal TAVR function. Not ACS, but rather combination of anemia, worsening renal function. Continue med management with ASA, statin, BB. 2. Valvular heart disease: recent TAVR. Normal TAVR function on echo this admission 3. Hx of HFpEF: fairly euvolemic here. Resumed outpatient lasix. Continue BP mx 4. UTI: on levoflox per IM 5. Permanent AF: slow V rate/pacing. Device interrogated today and back up rate increased to 60 bpm. Will re-assess LVEF is 3 months. Has been on coumadin for CHADS2-VASC score of 5. 6. Anemia: worsening this admission; Hct stable today. Lab evidence of iron deficiency. No active bleeding. FOBT negative. COumadin on hold but would resume once INR near 2 7. Hx cardiac arrest with ICD: Had a 20 beat run of VT early this morning. Continue BB. 8. DM; per IM 9 PHTN; multifactorial. Lasix 10. Confusion: improved today. May be related to multiple recent hospitalizations and UTI. Head CT without acute process. Appears stable from a cardiac standpoint. Please have him follow up with me in 2-3 weeks at [facility]. 02/19/19 13:59 Subjective: Feels fairly well. Does not feel confused. Denies chest pain or dyspnea. Reviewed/Discussed With: other (Dr. Garcia) Objective: Vital Signs (8 Hrs) Temp Pulse Resp BP Pulse Ox 02/19/19 11:49 36.9 C 47 L 20 131/47 H 95 02/19/19 10:17 49 L 18 92 02/19/19 10:00 44 L 02/19/19 07:55 36.9 C 47 L 20 134/65 H 95 Intake/Output (24 Hrs) 02/18/19 02/19/19 02/20/19 05:59 05:59 05:59 Intake Total 850 1225 Output Total 1250 Balance 850 -25 Intake: Oral (ml) 850 1225 Output: Urine (ml) 1250 Catheter 1250 Other: Intake Quantity Yes Yes Sufficient Number of Voids Incontinence 1 6 Toilet 1 No acute distress. JVP 12 cm water. Irregularly irregular rhythm. No murmur. No S3 Lungs clear bilaterally wheeze rhonchi rales Trace bilateral edema to mid [place]. Chronic venous stasis. Alert and oriented x3 without gross focal neurologic deficits. Appears more oriented today. Result Diagrams: 02/19/19 03:27 02/19/19 03:27 Cardiac Labs: Cardiac Lab Results (72 Hrs) 02/17/19 03:22 Troponin I 0.195 H Telemetry: Reviewed: Atrial fibrillation with frequent ventricular pacing and slow ventricular response. A 20 beat run of VT at 3:42 a.m. ICD10 Worksheet Patient Problems: Problems Problem Status Onset TONYA (acute kidney injury) Acute Dehydration Acute Bradycardia Acute UTI (urinary tract infection) Acute Altered mental status Acute Pulmonary hypertension due to left heart disease Acute Pulmonary hypertension due to left heart disease Acute Pulmonary hypertension due to left heart valvular disease Acute Pulmonary hypertension due to left heart valvular disease Acute Pneumonia Acute Influenza Acute CHF (congestive heart failure) Acute Chronic Disease [facility] Acute Afib Acute Hip osteoarthritis Acute
--- NOTE | 2019-02-19 13:53 | HOSPPROG ---
Hospitalist Progress Note Assessment/Plan: UTI (urinary tract infection) (Acute) - Pt presenting with confusion, denies urinary symptoms - UA on admission positive for 3+ LE, 50-182 WBC - S/p Levaquin in ED, will continue Day 02/04 (hx of allergies to Cephalosporins) - Urine cx growing Klebsiella, blood cultures NGTD - WBC 11.2 on admission, decreased to 7.5, afebrile overnight TONYA (acute kidney injury)(Acute) - In setting of known CKD - BUN/Cr 60/2.4 on admission (baseline 1.8-2.0), repeat 43/2.0 this AM - In setting of recent decreased PO intake - Pt also with hx of recent TAVR, diastolic dysfunction present on TTE - Restarted home diuretics as below - Continue to monitor BMP, I/O, avoid nephrotoxic agents Elevated Troponin - Trop 0.15 on admission, no complaints of chest pain - Increased overnight 0.399->0.353 ->0.195 this AM - In setting of recent TAVR - EKG with no acute ischemic changes - Cardiology consulted, report recent cath with nonobstructive CAD, they do not believe this indicated ACS, but rather combination of anemia, worsening renal function - Continue home ASA, statin, Coreg - TTE performed on 02/16 showing normal EF, no RWMA, as well as normal TAVR function dCHF - TTE from 01/19/19 showing diastolic dysfunction - CXR on admission showing mild interstitial edema, although appears dry otherwise - S/p IVF overnight on 02/16 with mild improvement in Cr - Cardiology recommends restarting home Lasix 40 mg qd on 02/17 - Continue home Coreg Normocytic Anemia - Hgb decreased 10.5-> 8.0, stable at 8.2 this AM - No reported s/s of bleeding - Occult stool negative for blood - Fe studies indicating likely LLOYD as well as ACD - Continue Fe replacement - Possibly hemolysis in setting of recent TAVR, will check LDH and haptoglobin - Continue to trend H/H, transfuse if <7/20 s/p TAVR - TTE on 02/16 showing normal TAVR function Altered mental status (Acute) - Improving - In setting of UTI, management as above Bradycardia (Acute) - Hx of A Fib on Coreg - Cardiology to further evaluate - Continue to monitor on telemetry Dehydration (Acute) - S/p IVF as above in setting of UTI T2DM - Will hold home Glipizide for now - SSI ordered A Fib - Bradycardic as above, per cardiology "may need to increase back up pacer rate ", awaiting EP consult today - Continue home coreg, coumadin, INR therapeutic on admission Hyponatremia - Na 133 on admission, 130 this AM after restarting home diuretics - Will continue to monitor FEN: IVF, Cardiac diet Code: FULL DVT PPx: Lovenox Dispo: Pending clinical course Objective: Vital Signs Temp Pulse Resp BP Pulse Ox 36.9 C 47 L 20 131/47 H 95 02/19/19 11:49 02/19/19 11:49 02/19/19 11:49 02/19/19 11:49 02/19/19 11:49 Laboratory Results 02/19/19 03:27 02/19/19 03:27 02/18/19 02/19/19 02/20/19 05:59 05:59 05:59 Intake Total 850 1225 Output Total 1250 Balance 850 -25 PT 27.1 SEC (12.0-15.0) H 02/19/19 03:27 INR 2.67 (0.83-1.16) H 02/19/19 03:27 ICD10 Worksheet Patient Problems: Problems Problem Status Onset TONYA (acute kidney injury) Acute Altered mental status Acute Bradycardia Acute Dehydration Acute UTI (urinary tract infection) Acute Afib Acute CHF (congestive heart failure) Acute Chronic Disease [facility] Acute Hip osteoarthritis Acute Influenza Acute Pneumonia Acute Pulmonary hypertension due to left heart disease Acute Pulmonary hypertension due to left heart disease Acute Pulmonary hypertension due to left heart valvular disease Acute Pulmonary hypertension due to left heart valvular disease Acute
--- NOTE | 2019-02-19 14:59 | ASMTCMCOM ---
CM Note CM Note Notes: Pts case discussed in tx rounds. CM spoke to pts son Angela on the phone. Therapies are continuing to recommend SNF. Angela would like pt to return back to [facility] once he is medically stable. Angela is requesting to speak to Dr. Gonzalez. CM communicated this to Dr. Gonzalez. Palliative is following. CM to follow. Plan: [facility] Date Signed: 02/19/2019 02:44 PM Electronically Signed By:ABI Navarrete
[2019-02-19] MEDS: ATORVASTATIN CALCIUM 10 MG TAB PO SCH (20:02)
[2019-02-19] MEDS: MELATONIN 3 MG TAB PO SCH (20:02)
[2019-02-19] MEDS: LATANOPROST 0.005% 2.5 ML OPHT DROPS EACHEYE SCH (20:05)
[2019-02-20 04:15] LABS: INR 2.34 (0.83-1.16); PROTIME(PATIENT) 24.5 SEC (12.0-15.0)
[2019-02-20] MEDS: VITAMIN B COMPLEX 1 EA CAP/TAB PO SCH (08:25)
[2019-02-20] MEDS: FERRO-SEQUELS 65 MG TAB.ER PO SCH (08:25)
[2019-02-20] MEDS: PRESERVISION AREDS2 FORMULA EYE VIT 1 EACH PO SCH (08:25)
[2019-02-20] MEDS: SODIUM BICARBONATE 650 MG TAB PO SCH ×3 (08:25→15:34)
[2019-02-20] MEDS: SOLIFENACIN SUCCINATE 5 MG TAB PO SCH (08:26)
[2019-02-20] MEDS: PANTOPRAZOLE SODIUM 40 MG TAB PO SCH (08:26)
[2019-02-20] MEDS: ASPIRIN 81 MG CHEWABLE TAB PO SCH (08:26)
[2019-02-20] MEDS: FUROSEMIDE 40 MG TAB PO SCH (08:26)
[2019-02-20] MEDS: INSULIN LISPRO 100 UNIT/ML SC SCH ×2 (08:28→11:29)
[2019-02-20] MEDS: CARVEDILOL 6.25 MG TAB PO SCH (08:28)
[2019-02-20] MEDS: TIMOLOL 0.5% 15 ML OPHT.BTL EACHEYE SCH (08:29)
[2019-02-20] MEDS: Brinzolamide 1% 10 ml OPHT.BTL EACHEYE SCH (08:30)
[2019-02-20] MEDS: TIOTROPIUM INHALER 18 MCG/DOSE 5 DOSE/MDI IH SCH ×2 (08:32→09:10)
[2019-02-20] MEDS: WARFARIN SODIUM 1 MG TAB PO SCH (15:33)
--- NOTE | 2019-02-20 15:38 | PDIAF ---
- Diagnosis Diagnosis: UTI Code Status: Full Code - Medication Management Discharge Medications: electronically signed and located in the Home Medication List. - Orders Services needed: Physical Therapy, Occupational Therapy Isolation Type: None Diet Recommendation: no restrictions on diet Additional Instructions: Stop Levaquin after dose 02/21 - Follow Up Care Current Providers and Referrals: Patient,NotPresent [Unknown] - As per Instructions
--- NOTE | 2019-02-20 15:50 | ASDISCHSUM ---
Discharge Information Plan Status:SNF Medically Cleared to Leave:02/20/2019 Discharge Date:02/20/2019 CM D/C Disposition: ADT D/C Disposition:Long Term Facility Projected Discharge Date:02/20/2019 11:00 AM Transportation at D/C: Discharge Delay Reason: Follow-Up Date:02/20/2019 11:00 AM Discharge Slot: Final Diagnosis: Placement Information Referral Type:*Home Health Care Services Referral ID:[id number] Provider Name: Address 1: Phone Number: Address 2: Fax Number: City: [facility] Factors: State: Referral Type:*Longterm/SNF Referral ID:[id number] Provider Name:[facility] Address 1:[address] Address 2: City:[place] Selection Factors: State:[place] Referral Type:Palliative Care Referral ID:[id number] Provider Name:[facility] Address 1:[address] Phone Number: Address 2: Fax Number: [facility]:[place] Selection Factors: State:[place] Patient Contact Information Contact Name:HOANG Relationship: [address] [facility] Work Phone: City:[facility] Phone: [facility]/Zip Code:[place] [address] Email: Financial Information Financial Class:Medicare Primary Plan Desc:MEDICARE INPATIENT Primary Plan Number:[id number] Secondary Plan Desc:[facility] Secondary Plan Number:[id number] Assessment Information LACE LACE Comorbidities - select Answers: Chronic pulmonary disease all that apply Coronary Artery Disease Diabetes (uncontrolled or controlled) Moderate or severe liver or renal disease Opioid dependence / Chronic pain Other Notes: AFib; Hypoxic respirato ry failure # of Emergency department Answers: 1-2 visits in the last 6 months Score: 15 Date Signed: 02/15/2019 02:53 PM Electronically Signed By:Mandi Blunt [facility] Progress Note CM Note CM Note Notes: 02/16/2019 Case Management Note Discussed pt during rounds. Pt admitted for confusion, elevated trop, and CKD. History of TAVR in December 2018. Met w/pt to discuss d/c plans. Pt lives with Barbara [phone]. Son Angela [phone] is local. At pt request called son to discuss d/c plan. Pt has recent d/c from [facility]. At karley Miller's request faxed referral to [facility]. Upon d/c from [facility], [facility] visited pt one time at home. Pt and karley Miller happy with services. Faxed referral to [facility]. [facility]. Case Management to follow. Date Signed: 02/16/2019 03:53 PM Electronically Signed By:Gita Muñiz RN [facility] Progress Note CM Note CM Note Notes: Pts case discussed in tx rounds. CM spoke to pts karley Miller on the phone. Therapies are continuing to recommend SNF. Angela would like pt to return back to [facility] once he is medically stable. Angela is requesting to speak to Dr. Gonzalez. JOHN communicated this to Dr. Gonzalez. Palliative is following. CM to follow. Plan: [facility] Date Signed: 02/19/2019 02:44 PM Electronically Signed By:ABI Navarrete Case Management Discharge Plan Note Case Management Discharge Discharge Order Complete? Answers: Yes Patient to Obtain Answers: Other Notes: [facility] Medications Transportation Arranged Answers: Other Notes: Stephon Maloney w/c transport Transport will Pick (Date 02/20/2019 04:30 PM & Time) ISAIAS Complete Answers: No Case Management Transport Answers: No Form Complete Faxed Final Orders Answers: Yes Agency/Facility Transfer Answers: Yes Report Printed & Faxed to Receiving Agency Family Notified Answers: Yes Discharge Comments Notes: Pts case discussed in tx rounds. Pt is being d/c'd today to [facility]. CM called pts son and notified him of the d/c. DC orders sent. PRAKASH Bonilla will call to give report. CM available for changes. Plan: [facility] Date Signed: 02/20/2019 03:48 PM Electronically Signed By:ABI Navarrete Intervention Information Intervention Type:*[facility]-Signed Date of Service:02/15/2019 02:44 PM Patient Type:Observation Staff Member:Mandi Blunt Hours: Discipline: Severity: Comment: Intervention Type:*IM-Signed Date of Service:02/20/2019 03:20 PM Patient Type:Inpatient Staff Member:Mandi Blunt Hours: Discipline: Severity: Comment:
--- NOTE | 2019-02-20 15:52 | ASMTCMCOM ---
CM Note CM Note Notes: notified Mee at [facility] that pt is being d/c'd today. [facility] will follow pt outpatient. Date Signed: 02/20/2019 03:51 PM Electronically Signed By:ABI Navarrete
[2019-02-20 16:12] VITALS: BP 167/66
--- NOTE | 2019-02-21 04:21 | GDS ---
[f rep st] DISCHARGE SUMMARY DISCHARGE DIAGNOSES: 1. Klebsiella urinary tract infection. 2. Metabolic encephalopathy. 3. Acute on chronic kidney failure. 4. Aortic stenosis, status post transcatheter aortic valve replacement. 5. Atrial fibrillation. 6. Diabetes type 2. 7. History of out of hospital arrest, status post AICD. HISTORY: The patient is an 83-year-old male, who was brought to the hospital by his family for confu breann. The confusion was felt to be due to a urinary tract infection. Urine culture grew Klebsiella. He was treated with Levaquin due to a cephalosporin allergy. The Levaquin may also cause persisten t confusion. Although he is not back to baseline, he is otherwise medically stable and can [facility]. He was transferred to [facility]. DISCHARGE MEDICATIONS: Please see computerized record for full detailed list. New medications: Lev aquin 750 mg p.o. q.48 hours, day #7 dose is tomorrow and then it can be stopped. ADDITIONAL DISCHARGE INSTRUCTIONS: Transfer to [facility]. Greater than 30 minutes of time spent arranging this discharge. Patient was seen and examined by me on the day of discharge. /[id number]/MODL
== END 2019-02-20 16:43 | DRG 689 ==
LOC: EDSEX → EDUNIT# → F2W 12:30 → OBSVTOIN 17:58
PROVIDERS: ADMIT Internal Medicine; ATTEND Family Medicine
DX: N39.0 Urinary tract infection, site not specified (principal); G93.41 Metabolic encephalopathy; N17.9 Acute kidney failure, unspecified; I13.0 Hypertensive heart and chronic kidney disease with heart failure and stage 1 through stage 4 chronic kidney disease, or unspecified chronic kidney disease; I50.32 Chronic diastolic (congestive) heart failure; N18.9 Chronic kidney disease, unspecified; B96.1 Klebsiella pneumoniae [K. pneumoniae] as the cause of diseases classified elsewhere; I48.2 Chronic atrial fibrillation; E11.9 Type 2 diabetes mellitus without complications; J44.9 Chronic obstructive pulmonary disease, unspecified; G47.33 Obstructive sleep apnea (adult) (pediatric); E78.5 Hyperlipidemia, unspecified; I27.20 Pulmonary hypertension, unspecified; Z95.3 Presence of xenogenic heart valve; Z95.810 Presence of automatic (implantable) cardiac defibrillator; Z86.74 Personal history of sudden cardiac arrest
CPT/HCPCS: 83010-90; 84484-ER; 96365; 97116-GP; 97162-GP; 97165-GO; 97530-GP; 97535-GO; J1815; J1956

== ENCOUNTER → 2019-02-16 | Outpatient (CLI) | payer OTHER | LOC: BHFA 10:45 | PROVIDERS: ATTEND Internal Medicine Cardiovascular Disease | DX: I50.9 Heart failure, unspecified (principal); Z95.2 Presence of prosthetic heart valve ==

== ENCOUNTER 2019-04-19 08:35 | Observation (INO) | payer OTHER | END 2019-04-20 15:55 | disposition home or self-care (01) | LOC: F3N 14:33 ==